=== PATIENT | female | born 1935 | race Caucasian/White ===

== ENCOUNTER 2017-04-11 05:47 | Inpatient (IN) | payer MEDICARE, SELFPAY ==
[2017-04-11] VITALS (19 sets, daily range): BP systolic 86–144; BP diastolic 48–79; PULSE 83–130; RESP 16–24; TEMP 36.9–38.3; O2SAT 92–99; BMI 33.3; BMI 33.4
--- NOTE | 2017-04-11 05:55 | RAD_ITS ---
STUDY: X-RAY CHEST REASON FOR EXAM: Female, 82 years old. Cough TECHNIQUE: 1 view COMPARISON: October 28, 2015 FINDINGS: The heart is normal in size. Median sternotomy wires are in place. There is no pneumonia and there are no pleural effusions. Normal visualized thoracic spine. Normal visualized ribs, clavicles, and shoulders. There is no demonstrated abnormality of the visualized soft tissue structures of the upper abdomen. RAD/Chest 1 View (Portable) IMPRESSION: No acute findings in the lungs Electronically Signed: Ashu Horton, at 6:18 EST Tel , Service support ,
--- NOTE | 2017-04-11 06:02 | EKG12_ITS ---
Test Reason : Blood Pressure : / mmHG Vent. Rate : 096 BPM Atrial Rate : 080 BPM P-R Int : 272 ms QRS Dur : 090 ms QT Int : 372 ms P-R-T Axes : 000 -37 044 degrees QTc Int : 469 ms Atrial flutter with variable conduction Ventricular couplets Left axis deviation Nonspecific ST and T wave abnormality Abnormal ECG Confirmed by AMANDA THOMAS ([id number]), health editor CARLITO HUANG ([id number] on 04/16/2017 10:12:00 AM Referred By: EDIE Confirmed By:AMANDA THOMAS
--- NOTE | 2017-04-11 06:12 | ED.DCSUM_ITS ---
- ER Visit Summary Date of Service: 04/11/17 Chief Complaint: Cough, fever History of Present Illness: The patient is a 82 F presented with cough, fever since Saturday. She has had a productive cough and shortness of breath with exertion. She has had a fever at home. Family has been giving her Tylenol with some improvement of her fever. She did receive a flu shot this year. She denies chest pain or abdominal pain. Denies nausea, vomiting, diarrhea. Physical Examination: Vitals are stable. Temperature 101. Alert no acute distress. HEENT exam is unremarkable. Neck is supple. Lungs are expiratory wheezing bilaterally. Heart is regular rate and rhythm. Abdomen is soft nontender nondistended. Extremities are unremarkable. Skin is warm and dry. No focal neurologic deficit. Remainder of exam is unremarkable. Emergency Department Course and Treatment: Patient is given Tylenol p.o. she is given albuterol and Atrovent aerosols. Chest x-ray shows no acute process. EKG is sinus rate of 96. CBC normal except for platelets 141. Chemistries normal except glucose 133. Urinalysis shows positive nitrites, 0-5 white blood cells, 10-25 red blood cells. Urine culture was sent. Troponin is negative. Lactic acid is 2.7. Influenza A positive. She was given Tamiflu. She had systolic blood pressures in the 80s. This is responsive to IV fluids with a repeat blood pressure 137/60. Attempted to ambulate the patient with a pulse ox and she was unable to ambulate secondary to generalized weakness. Discussed with the hospitalist for admission. Disposition: Admission Impression: Influenza, severe sepsis This note was generated with [employer] dictation software. It may contain incorrect words, spelling, and punctuation that were not noted in review of the chart prior to signing ED Disposition - Plan for ED Patient: Chief Complaint: Cough Referrals: Nabor Arthur MD [Primary Care Provider] -
[2017-04-11] MEDS: Acetaminophen 500 MG Tablet 1000 MG PO (06:17)
[2017-04-11 06:29] LABS: Absolute Lymphocyte Count 0.83 X10^3/ul (0.83-4.51); Absolute Neutrophil Count 6.8 X10^3/uL (2.0-7.7); Basophil# 0.01 X10^3/uL; Basophil% 0.1 % (0-1); Eosinophil# 0.01 X10^3/uL; Eosinophils% 0.1 % (0-5); Hematocrit 39.1 % (37-47); Hemoglobin 12.4 g/dl (12.0-15.0); Lymphocyte # 0.83 X10^3/ul (4.0); Lymphocyte % 9.7 % (19-41); Mean Corp Hgb Conc 31.7 g/gl (32-36); Mean Corpuscular Hgb 28.5 pg (27.0-32.0); Mean Corpuscular Volume 89.9 fL (81-99); Mean Platelet Vol. 11.4 fl (6.2-12.0); Monocyte% 10.6 % (0-10); Neutrophil # 6.76 X10^3/uL (2.7-7.7); Neutrophil % 79.4 % (47-70); Platelet Count 141 K/mm3 (150-450); RBC Distribution Width CV 14.9 % (11.6-14.6); Red Blood Count 4.35 M/mm3 (4.2-5.4); White Blood Count 8.5 K/mm3 (4.4-11.0)
[2017-04-11 06:30] LABS: POSITIVE COUNT NO; POSITIVE DIFFERENTIAL NO; POSITIVE MORPHOLOGY NO
[2017-04-11] MEDS: Ipratropium/Albuterol Sulfate 3 ML AMPUL.NEB INHALATION (06:34)
[2017-04-11 06:41] LABS: Mucous, Urine 0 SEEN /hpf (<or=2+)
[2017-04-11 06:43] LABS: Color, Urine Yellow (Yellow); Glucose, Dipstick Normal (Normal); Ketone-Dipstick Negative (Negative); Leukocyte Esterase-Dipstick 25 /ul (Negative); Nitrite-Dipstick Positive (Negative); Occult Blood-Urine 250 /ul (Negative); Protein-Dipstick 30 mg/dl (Negative); Specific Gravity, Urine 1.025 (1.002-1.030); Urine Bilirubin Dipstick Negative (Negative); Urine Clarity Sl. Cloudy (Clear); Urine Urobilinogen Normal (Normal)
[2017-04-11 06:49] LABS: Anion Gap 6 (5-15); BUN 14 mg/dL (7-18); BUN/Creat Ratio 17.5 RATIO (10-20); Calcium,Total 8.9 mg/dL (8.5-10.1); Chloride 102 mmol/L (98-107); EST Glomerular Filtration Rate 73 mL/min (>60); Est Glom Filt Rate - Afr Amer 88 mL/min (>60); Estimated Creatinine Clearance 38.27 ml/min; Glucose 133 mg/dL (70-110); Potassium 3.7 mmol/L (3.5-5.1); Sodium Level 135 mmol/L (136-145)
[2017-04-11] MEDS: Albuterol 2.5 MG/3 ML VIAL.NEB. INHALATION ×3 (06:56→21:03)
[2017-04-11 07:06] LABS: Amorphous Sediment 1+ URATE; Bacteria 2+ /hpf (None Seen); Red Blood Cells-Urine 10-25 SEEN /hpf (0-5); Squamous Epithelial Cells - UA 0-5 SEEN /hpf (5-10); White Blood Cells 0-5 SEEN /hpf (0-5)
--- NOTE | 2017-04-11 07:27 | CPS ---
RN AND AWARE OF INCREASED HR, THIRD AEROSOL HELD AT THIS TIME.
[2017-04-11] MEDS: 0.9% Normal Saline 1,000 ML 999 ML IV (08:08)
[2017-04-11 08:45] LABS: Lactic Acid 2.7 mmol/L (0.4-2.0)
[2017-04-11] MEDS: Oseltamivir Phosphate 75 MG Capsule PO (08:51)
[2017-04-11] MEDS: 0.9% Normal Saline 1,000 ML 150 ML IV (09:45)
[2017-04-11 09:58] LABS: International Normalized Ratio 1.8; Prothrombin Time (Protime)PT. 20.1 SECONDS (11.7-14.9)
[2017-04-11] MEDS: Enoxaparin 40 MG/0.4 ML Syringe SC (11:19)
[2017-04-11] MEDS: Famotidine 20 MG Tablet PO (11:20)
[2017-04-11 12:16] LABS: Reflex Lactate? Y
[2017-04-11 12:27] LABS: Lactic Acid 3.9 mmol/L (0.4-2.0)
--- NOTE | 2017-04-11 12:31 | NURSING ---
This RN called at this time from lab and notified of lactic of 3.9. This RN texted both Juan Ramon Pulliam and Dr. Bales. Reply= no new orders. vitals obtained at this time
[2017-04-11] MEDS: Metoprolol Tartrate 25 MG Tablet 12.5 MG PO ×2 (14:11→21:03)
[2017-04-11] MEDS: Acetaminophen 325 MG Tablet 650 MG PO (14:13)
[2017-04-11 15:51] LABS: Reflex Lactate? Y
--- NOTE | 2017-04-11 16:17 | CHAPLAIN ---
Type of Pastoral Visit _x__ Initial Visit ___ Follow-up Visit ___ On-call Visit ___ General Patient Visit ___ Spiritual Assessment ___ Family Conference ___ Bereavement ___ Rapid Response ___ Code Blue ___ Other (describe below) Pastoral Care Referral From _x__ Patient ___ Family ___ Nurse ___ Physician ___ Steam Shovel Runner ___ Grave Digger ___ Other (describe below) Sacrament/Intervention ___ Active listening ___ Anointing ___ Restorationism ___ Bereavement ___ Communion ___ Vianca exploration ___ ___ Life review ___ Prayer ___ Reconciliation ___ Sacrament of Sick _x__ Supportive presence ___ Wedding ___ Other (describe below) Pastoral Comments
--- NOTE | 2017-04-11 16:28 | HP.PCM_ITS ---
Addendum entered and electronically signed by MELANIE Pulliam 04/11/17 16:33: Code Visit Problem #8 CAD - s/p CABG - continue aspirin / statin Original Note: <Jose Noguera - Last Filed: 04/11/17 16:31> Problem List (1) Severe sepsis Status: Acute (2) Influenza A Status: Acute (3) Dementia Status: Chronic (4) Atrial fibrillation Status: Chronic (5) HTN (hypertension) Status: Chronic History of Present Illness Date of Admission: 04/11/17 Chief Complaint: malaise The patient is a 82 year old F comes to the emergency room complaining of generalized malaise over the past few days. The patient has dementia and family is not present she is somewhat confused and unclear about her history. She reportedly has had a cough has been short of breath with exertion. She has had a fever at home, however she does not remember having a fever and does not remember her family giving her Tylenol. She denies any nausea or vomiting, no diarrhea. She has no abdominal pain. She denies dysuria. She has some chronic urinary incontinence but has had no change in this recently. Currently she does not feel like she has a fever or and is not having chills. She is resting comfortably in bed without oxygen and is not short of breath. She has some all over ache. She feels very weak lately. She does report a cough and occasionally brings up some yellow mucus. She states 1 of her daughters is also sick with similar symptoms. She did have a flu shot this year. [] Past Medical History Past Medical History (Chronic Problems): Chronic Problems Dementia (Chronic) Atrial fibrillation (Chronic) HTN (hypertension) (Chronic) Allergies Penicillins Allergy (Verified 04/11/17 05:47) Rash Home Medications: Ambulatory Orders Medication Instructions Recorded Aspirin [Aspirin, Baby] 81 mg PO DAILY@0800 04/11/17 Atorvastatin Calcium [Lipitor] 20 mg PO QHS 04/11/17 Cholecalciferol (Vitamin D3) 1,000 unit PO DAILY 04/11/17 [Vitamin D3] Ferrous Sulfate 325 mg PO BIDCM 04/11/17 Furosemide [Lasix] 20 mg PO DAILY 04/11/17 Metoprolol Tartrate [Lopressor 12.5 mg PO TID 04/11/17 (Beta Shantal)] [place]-3 Fatty Acids/Fish Oil [Fish 1 each PO BID 04/11/17 Oil 1,000 mg Capsule] Potassium Chloride 10 meq PO DAILY 04/11/17 Ranitidine [Zantac] 150 mg PO DAILY 04/11/17 Warfarin [Coumadin ([facility])] 2.5 mg PO QHS 04/11/17 Surgical History: - - CABG Psychiatric History: No pertinent psych hx SEGMENTAL WALL INSTALLER History: No pertinent SEGMENTAL WALL INSTALLER history Lives: With Family Smoking Status: Never smoker Tobacco Use: Non-smoker Alcohol: None Drugs: None - *Family History Maternal History Items: Unknown - pt has dementia Paternal History Items: Unknown - pt has dementia Review of Systems Constitutional: Reports: Malaise, Weakness, Fatigue. Denies: Chills, Fever, Weight Change HEENT: Denies: Head Aches, Sinus Congestion, Sinus Drainage Cardiovascular: Denies: Chest Pain, Chest Pressure, Chest Tightness, Edema, Heaviness, Light Headedness, Palpitations Respiratory: Reports: Cough, Shortness of Breath, Shortness of breath upon exertion, Sputum production. Denies: Hemoptysis, Pleuritic Pain, Shortness of breath at rest Gastrointestinal: Denies: Abdominal Pain, Diarrhea, Nausea, Vomiting Genitourinary: Reports: Incontinence - chronic. Denies: Dysuria Musculoskeletal: Denies: Joint Pain, Joint Tenderness Skin: Denies: Rash, Wounds Neurological: Denies: Numbness, Tingling, Focal weakness Psychiatric: Denies: Anxiety, Depression, Homicidal Ideations, Suicidal Ideations Hematologic/ Lymphatic: Denies: Easy Bruising, Easy Bleeding VTE Information - Inpt Only VTE Present on Admission: No VTE Mechan Device Prophylaxis: SCD's VTE Pharm Prophylaxis ordered?: Yes Patient Problems: Active and Suspected Problems Severe sepsis (Acute) Influenza A (Acute) - Physical Exam General: Alert, Oriented x3, Cooperative HEENT: Atraumatic, PERRLA, EOMI, Normocephalic Neck: Supple, No JVD, Negative Carotid Bruits Lungs: Normal air movement, Wheezes - expiratory BL. Cardiovascular: Regular rate, No murmurs, Irregular Rate - Skipped beats Abdomen: Bowel Sounds Present, Soft, Non Tender Extremities: No edema, Capillary Refill Less than 3 Seconds Skin: No rashes, No breakdown Musculoskeletal: No Tenderness to Palpation of Joints or Extremities Neurological: Cranial nerves II-XII grossly intact Psych/Mental Status: Normal Affect, Appropriate Vital Signs Temp Pulse Resp BP Pulse Ox 99.4 F H 98 18 144/55 H 97 04/11/17 16:02 04/11/17 14:11 04/11/17 14:08 04/11/17 14:11 04/11/17 14:08 Oxygen Flow Rate 2 Oxygen Delivery Method Room Air Weight: 75 kg Body Mass Index (BMI) 33.3 Intake and Output for Last 24 Hours 04/09/17 04/10/17 04/11/17 23:59 23:59 23:59 Intake Total 1128 / 1128 Output Total 300 / 300 Balance 828 / 828 Laboratory Tests Past 24 Hrs 04/11/17 11:40 Lactic Acid 3.9 H Assessment/Plan Active and Suspected Problems Severe sepsis (Acute) Influenza A (Acute) 1. Acute severe sepsis 2/2 Influenza A - criteria met with + lactate, hypotension on presentation, + tachy, + fever T max 101.0. Start tamiflu. PRN aerosols. Incentive spirometer. No Abx indicated at this time. Pt appears comfortable, non toxic, and without dyspnea off O2. Troponin negative. Negative WBC. 2. AF - warfarin - trend currently subtherapeutic. Tachy 2/2 infection. EKG with sinus tach. PVCs on exam. 3. Asymptomatic baceriuria - defer abx. 4. HTN - actually low on presentation - responded to fluids. Hold antihypertensives until stable. 5. Dementia 6. Debility - PTOT 7. Mild thrombocytopenia - trend. Avoid heparin products. DVT ppx: warfarin DC planning: PTOT This patient was seen by Jose Noguera PA-C under the supervision of Doctor Amairani. <Lucho Bales - Last Filed: 04/11/17 16:48> Problem List (1) Severe sepsis Status: Acute (2) Influenza A Status: Acute (3) Dementia Status: Chronic (4) Atrial fibrillation Status: Chronic (5) HTN (hypertension) Status: Chronic History of Present Illness The patient is a 82 year old F presents with a weeks long history of malaise and being sick. Patient presented to the emergency room and was in his with an elevated lactic acid and temp of 38.3, tachypnea of 21. It was positive for influenza A and was started on Tamiflu. There is concern about urinary tract infection per discussion with the ER but the urinalysis only shows 0-5 white cells. 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 Denies: Chills, Fever, Weight Change HEENT: Denies: Head Aches, Sinus Congestion, Sinus Drainage Cardiovascular: Denies: Chest Pain, Chest Pressure, Chest Tightness, Edema, Heaviness, Light Headedness, Palpitations Respiratory: Reports: Cough, Shortness of Breath, Shortness of breath upon exertion, Sputum production. Denies: Hemoptysis, Pleuritic Pain, Shortness of breath at rest Gastrointestinal: Denies: Abdominal Pain, Diarrhea, Nausea, Vomiting Genitourinary: Reports: Incontinence. Denies: Dysuria Musculoskeletal: Denies: Joint Pain, Joint Tenderness Skin: Denies: Rash, Wounds Neurological: Denies: Focal weakness, Numbness, Tingling Psychiatric: Denies: Anxiety, Depression, Homicidal Ideations, Suicidal Ideations Hematologic/ Lymphatic: Denies: Easy Bruising, Easy Bleeding VTE Information - Inpt Only VTE Present on Admission: No VTE Pharm Prophylaxis ordered?: Yes - Physical Exam General: Alert, Cooperative HEENT: Atraumatic, Normocephalic Neck: No Nodes, Thyroid Normal Size and Texture Lungs: Clear to auscultation, Normal air movement, No rhonchi, No wheeze Cardiovascular: Regular rate, Regular Rhythm, Normal S1, Normal S2, No murmurs Abdomen: Bowel Sounds Present, Soft, Non Tender, Non-Distended Psych/Mental Status: Normal Affect, Appropriate Vital Signs Temp Pulse Resp BP Pulse Ox 37.4 C H 98 18 144/55 H 97 04/11/17 16:02 04/11/17 14:11 04/11/17 14:08 04/11/17 14:11 04/11/17 14:08 Oxygen Flow Rate 2 Oxygen Delivery Method Room Air Weight: 75 kg Body Mass Index (BMI) 33.3 Intake and Output for Last 24 Hours 04/09/17 04/10/17 04/11/17 23:59 23:59 23:59 Intake Total 1128 / 1128 Output Total 300 / 300 Balance 828 / 828 Laboratory Tests Past 24 Hrs 04/11/17 04/11/17 11:40 16:15 Lactic Acid 3.9 H Pending Assessment/Plan Patient seen and examined independently. Agree with the above note by the physician assistant store director. 1. Severe sepsis: Secondary problem #2. Repeat lactic acid. IV fluids. 2. Influenza A: Patient states that she did get an influenza vaccine this year as she does every year. Patient be on Tamiflu 75 mg twice daily. 3. DVT prophylaxis: Patient is anticoagulated. Code Visit Inpatient E&M: 79184 Init Hosp L2
[2017-04-11 16:49] LABS: Lactic Acid 1.7 mmol/L (0.4-2.0)
[2017-04-11] MEDS: Ferrous Sulfate 325 MG Tablet PO (17:06)
[2017-04-11] MEDS: Atorvastatin Calcium 20 MG Tablet PO (21:04)
[2017-04-11] MEDS: Oseltamivir Phosphate 30 MG Capsule PO (21:04)
[2017-04-12] VITALS (11 sets, daily range): BP systolic 127–149; BP diastolic 62–89; PULSE 76–93; RESP 16–21; TEMP 36.6–37.9; O2SAT 95–98
[2017-04-12] MEDS: Albuterol 2.5 MG/3 ML VIAL.NEB. INHALATION ×2 (00:52→12:56)
[2017-04-12] MEDS: Acetaminophen 325 MG Tablet 650 MG PO (03:01)
[2017-04-12] MEDS: Metoprolol Tartrate 25 MG Tablet 12.5 MG PO ×2 (06:59→16:06)
[2017-04-12 07:00] LABS: International Normalized Ratio 2.1; Prothrombin Time (Protime)PT. 22.9 SECONDS (11.7-14.9)
[2017-04-12 07:03] LABS: Absolute Lymphocyte Count 1.34 X10^3/ul (0.83-4.51); Absolute Neutrophil Count 5.1 X10^3/uL (2.0-7.7); Basophil# 0.02 X10^3/uL; Basophil% 0.3 % (0-1); Eosinophil# 0.01 X10^3/uL; Eosinophils% 0.1 % (0-5); Hematocrit 37.6 % (37-47); Hemoglobin 11.8 g/dl (12.0-15.0); Lymphocyte # 1.34 X10^3/ul (4.0); Mean Corp Hgb Conc 31.4 g/gl (32-36); Mean Corpuscular Hgb 28.6 pg (27.0-32.0); Mean Corpuscular Volume 91.3 fL (81-99); Mean Platelet Vol. 11.2 fl (6.2-12.0); Monocyte# 0.92 X10^3/uL; Monocyte% 12.3 % (0-10); Neutrophil # 5.13 X10^3/uL (2.7-7.7); Neutrophil % 68.9 % (47-70); Platelet Count 148 K/mm3 (150-450); RBC Distribution Width CV 15.3 % (11.6-14.6); RBC Distribution Width SD 50.3 fl (35.1-43.9); Red Blood Count 4.12 M/mm3 (4.2-5.4); White Blood Count 7.5 K/mm3 (4.4-11.0)
[2017-04-12 07:11] LABS: POSITIVE COUNT NO; POSITIVE DIFFERENTIAL NO; POSITIVE MORPHOLOGY NO
[2017-04-12 07:16] LABS: Anion Gap 8 (5-15); BUN 11 mg/dL (7-18); BUN/Creat Ratio 15.2 RATIO (10-20); Chloride 109 mmol/L (98-107); Creatinine, Serum 0.73 mg/dL (0.55-1.02); EST Glomerular Filtration Rate 81 mL/min (>60); Est Glom Filt Rate - Afr Amer 99 mL/min (>60); Estimated Creatinine Clearance 50.47 ml/min; Glucose 106 mg/dL (70-110); Potassium 3.5 mmol/L (3.5-5.1); Sodium Level 141 mmol/L (136-145)
[2017-04-12] MEDS: Famotidine 20 MG Tablet PO (10:29)
[2017-04-12] MEDS: Oseltamivir Phosphate 30 MG Capsule PO (10:29)
[2017-04-12] MEDS: Aspirin 81 MG TAB.CHEW PO (10:30)
[2017-04-12] MEDS: Ferrous Sulfate 325 MG Tablet PO ×2 (10:30→17:39)
--- NOTE | 2017-04-12 10:51 | CASEMGMT ---
PADMINI ACOSTA Face to Face with patient for initial transition planning/care coordination assessment. PADMINI ACOSTA introduced self and role at [facility]. Patient lying in bed, alert and oriented. Patient willing to participate in assessment and is able to answer all questions appropriately. Care providers, pharmacy, and demographics verified. See link attached. Patient wishes to discharge home, denies need for home health at this time. Patient states she lives with daughter and patient gave permission to call daughter to discuss discharge needs. Pt states she has no further needs or concerns at this time. PADMINI ACOSTA called and spoke with daughter Anuradha Brink who states that her mother lives with her and is with her 08/10. Discussed with daughter if she thought her mother needed HHC at this time and she denied need for HHC. CM to follow for discharge planning needs that may arise. Disposition Plan: Patient to discharge home with family support and follow-up plans in place.
--- NOTE | 2017-04-12 11:36 | PCM.DC ---
- Discharge Diagnoses Current Active Problems: Current Active and Chronic Problems Severe sepsis (Acute) Influenza A (Acute) Dementia (Chronic) Atrial fibrillation (Chronic) HTN (hypertension) (Chronic) You will use the following diet at home:: Cardiac Your food should be the consistency of: Regular Your liquids should be the consistency of: Regular/Thin Discharge Activity: Return to Normal Activity Allergies/Adverse Reactions: Allergies Penicillins Allergy (Verified 04/11/17 05:47) Rash Medications to take at Discharge Aspirin [Aspirin, Baby] 81 mg PO DAILY@0800 04/11/17 Atorvastatin Calcium [Lipitor] 20 mg PO QHS 04/11/17 Cholecalciferol (Vitamin D3) [Vitamin D3] 1,000 unit PO DAILY 04/11/17 Ferrous Sulfate 325 mg PO BIDCM 04/11/17 Furosemide [Lasix] 20 mg PO DAILY 04/11/17 Metoprolol Tartrate [Lopressor (beta kuldip)] 12.5 mg PO TID 04/11/17 [place]-3 Fatty Acids/Fish Oil [Fish Oil 1,000 mg Capsule] 1 each PO BID 04/11/17 Potassium Chloride 10 meq PO DAILY 04/11/17 Ranitidine [Zantac] 150 mg PO DAILY 04/11/17 Warfarin [Coumadin] 2.5 mg PO QHS 04/11/17 Oseltamivir Phosphate [Tamiflu] 30 mg PO BID #8 cap 04/12/17 The following prescriptions were given: Oseltamivir Phosphate [Tamiflu] 30 mg PO BID #8 cap Primary Care Physician: Nabor Arthur MD [Primary Care Provider] - Please follow up with your Primary Care Physician in: 1 week Proposed Discharge Date: 04/12/17
--- NOTE | 2017-04-12 14:37 | DS.PCM_ITS ---
<Jose Noguera - Last Filed: 04/12/17 14:31> Discharge Date and Diagnosis - Problem List Patient Problems: Active and Suspected Problems Severe sepsis (Acute) Influenza A (Acute) Date of Admission: 04/11/17 Date of Discharge: 04/12/17 - Primary Discharge Diagnosis Active and Suspected Problems Severe sepsis (Acute) 2/2 Influenza A (Acute) PAF Dementia HTN Debility Mild thrombocytopenia Asymptomatic bacteriuria - Secondary Discharge Diagnosis Chronic Problems Dementia (Chronic) Atrial fibrillation (Chronic) HTN (hypertension) (Chronic) Hospital Course and Treatment Imaging Results: RAD/Chest 1 View (Portable) IMPRESSION: No acute findings in the lungs Operations: None Procedures: None Summary of Care Provided: Physical exam on day of discharge: General: Resting comfortably NAD Psych: A/Ox3 normal affect HEENT: PEARRLA AT NC Neck: Supple NT CV: RRR no m/t/r/g/h Resp: BL wheezing Abd: [id number] Soft NT no guarding or rigidity Ext: DP2+= no edema Skin: W/D normal turgor Lymph/Heme: No active bleeding or adenopathy Neuro: CN2-12 intact Hospital course: The patient is a 82 year old F who presented to the emergency room from home with fever, generalized malaise, reported shortness of breath, and body aches. She was given aerosols and tested for the flu. She is positive for influenza A. She had a negative chest x-ray. She had no O2 requirements. She is admitted to general medical floor and started on Tamiflu. She had a low blood pressure and was given IV fluids, antihypertensives were held. Blood pressure responded to IV hydration. She met sepsis criteria with lactic acidosis, source of infection, tachycardia, hypotension, and fever. She was very weak and debilitated. She was seen by physical therapy and Occupational Therapy however her family desire to take her home and care for her themselves and did not want home care. They are with her 24 hours a day. She improved dramatically overnight with stable vital signs, no oxygen requirement, and improvement in her symptoms. She was discharged home to complete 5 days of Tamiflu. She will follow-up with her PCP in 1 week. This patient was seen by Jose Noguera PA-C under the supervision of Doctor Amairani. [] Discharge Diet: Low fat/ Low Cholesterol, 4000 mg Sodium Diet Discharge Activity: Return to Normal Activity Home Medications: Medications to take at Discharge Aspirin [Aspirin, Baby] 81 mg PO DAILY@0800 04/11/17 Atorvastatin Calcium [Lipitor] 20 mg PO QHS 04/11/17 Cholecalciferol (Vitamin D3) [Vitamin D3] 1,000 unit PO DAILY 04/11/17 Ferrous Sulfate 325 mg PO BIDCM 04/11/17 Furosemide [Lasix] 20 mg PO DAILY 04/11/17 Metoprolol Tartrate [Lopressor (beta kuldip)] 12.5 mg PO TID 04/11/17 [place]-3 Fatty Acids/Fish Oil [Fish Oil 1,000 mg Capsule] 1 each PO BID 04/11/17 Potassium Chloride 10 meq PO DAILY 04/11/17 Ranitidine [Zantac] 150 mg PO DAILY 04/11/17 Warfarin [Coumadin] 2.5 mg PO QHS 04/11/17 Oseltamivir Phosphate [Tamiflu] 30 mg PO BID #8 cap 04/12/17 Following Prescrptions Were Given to Patient: Oseltamivir Phosphate [Tamiflu] 30 mg PO BID #8 cap Primary Care Physician: Nabor Arthur MD [Primary Care Provider] - Please follow up with your Primary Care Physician in: 1 week Disposition: Home Minutes spent on discharge:: 35 Patient Condition:: Stable Meaningful Use Info Meaningful Use Diagnoses (Choose all that apply): None applicable <Lucho Bales - Last Filed: 04/12/17 16:16> Discharge Date and Diagnosis - Primary Discharge Diagnosis Active and Suspected Problems Severe sepsis (Acute) Influenza A (Acute) - Secondary Discharge Diagnosis Chronic Problems Dementia (Chronic) Atrial fibrillation (Chronic) HTN (hypertension) (Chronic) Hospital Course and Treatment Operations: None Procedures: None Summary of Care Provided: Patient seen and examined independent. Agree with the above note by the physician assistant city attorney. The patient is a 82 year old F presents with a week's history of malaise, shortness of breath and myalgias. Patient was tested positive for influenza A and patient was started on Tamiflu. Patient was in severe sepsis so did receive IV fluids and her Lasix was held. Patient's status improved during the course of her hospitalization. The patient will be discharged. Seen by physical therapy recommended skilled needs. Family states that they live with her 24 7 and a sister with all her needs so no skilled skilled needs were required. [] Discharge Diet: Low fat/ Low Cholesterol, 4000 mg Sodium Diet Discharge Activity: Return to Normal Activity Disposition: Home Minutes spent on discharge:: 35 Patient Condition:: Stable Meaningful Use Info Meaningful Use Diagnoses (Choose all that apply): None applicable Code Visit OBSV E&M: 87023 Observation care discharge
== END 2017-04-12 18:24 | disposition home or self-care (01) | DRG 872 ==
LOC: ED 09:08 → MS3 09:22
PROVIDERS: Emergency Provider Emergency Medicine; Family Provider Family Medicine; PCP Family Medicine
DX: A41.89 Other specified sepsis (principal); J11.1 Influenza due to unidentified influenza virus with other respiratory manifestations; R65.20 Severe sepsis without septic shock; I95.9 Hypotension, unspecified; E87.2 Acidosis; D69.6 Thrombocytopenia, unspecified; R82.71 Bacteriuria; I48.0 Paroxysmal atrial fibrillation; I25.10 Atherosclerotic heart disease of native coronary artery without angina pectoris; I10 Essential (primary) hypertension; F03.90 Unspecified dementia, unspecified severity, without behavioral disturbance, psychotic disturbance, mood disturbance, and anxiety; R32 Unspecified urinary incontinence; Z79.01 Long term (current) use of anticoagulants; Z79.82 Long term (current) use of aspirin; Z79.899 Other long term (current) drug therapy; Z95.1 Presence of aortocoronary bypass graft
CPT/HCPCS: 36415; 71045; 80048; 81001; 83605; 84484; 85025; 85610; 87086; 87088; 87804; 93005; 94640; 94762; 97165; 97535; 97802; 99285; J7030; J7040; A4216

== ENCOUNTER 2017-04-14 13:50 | Inpatient (IN) | payer MEDICARE, SELFPAY ==
[2017-04-14] VITALS (11 sets, daily range): BP systolic 114–156; BP diastolic 66–101; PULSE 86–116; RESP 20–24; TEMP 37.7–38.5; O2SAT 74–97; BMI 34.7; BMI 32.7
--- NOTE | 2017-04-14 14:14 | RAD_ITS ---
STUDY: X-RAY CHEST REASON FOR EXAM: Female, 82 years old. Shortness of breath. TECHNIQUE: Single AP portable view of the chest. COMPARISON: April 11, 2017. FINDINGS: Cardiac monitoring leads are present. Patient has had a sternotomy. The lungs are expanded. There appear to be multifocal airspace opacities in the right lung, new since the previous study. There is no demonstrated pleural abnormality. There is mild cardiac enlargement. Normal mediastinum and pancho. Normal visualized pulmonary arteries. There is atherosclerotic tortuosity of the aortic arch and descending thoracic aorta. There is demineralization of the osseous structures. Normal visualized ribs, clavicles, and shoulders. There is no demonstrated abnormality of the visualized soft tissue structures of the upper abdomen. RAD/Chest 1 View (Portable) IMPRESSION: Right-sided airspace consolidations likely representing pneumonia. Electronically Signed: Mimi Arvizu MD at 14:52 EST , Service support ,
--- NOTE | 2017-04-14 14:14 | EKG12_ITS ---
Test Reason : SOB Blood Pressure : / mmHG Vent. Rate : 102 BPM Atrial Rate : 113 BPM P-R Int : 000 ms QRS Dur : 084 ms QT Int : 354 ms P-R-T Axes : 000 -39 021 degrees QTc Int : 461 ms Atrial tachycardia/fibrillation with Premature ventricular complexes Left axis deviation Abnormal ECG Confirmed by PONCHO HAIDER, JEROME ([id number]), avid editor CARLITO HUANG ([id number]) on 04/16/2017 10:43:44 AM Referred By: [email or web address] Confirmed By:JEROME ISAAC MD
[2017-04-14] MEDS: Ipratropium/Albuterol Sulfate 3 ML AMPUL.NEB INHALATION (14:28)
--- NOTE | 2017-04-14 14:49 | ED.DCSUM_ITS ---
- ER Visit Summary Date of Service: 04/14/17 Chief Complaint: [] Influenza positive, persistent harsh cough vomiting weakness History of Present Illness: The patient is a 82 F [] about 1 week the patient's had a harsh cough runny nose etc. she was seen at the hospital, diagnosed with influenza positive, treated discharged a few days ago. For the daughter she has had persistence of the harsh coughing to the point now she is vomiting and she cannot be managed at home is unable to eat or drink complaining of fatigue patient does have history of COPD,, hypertension, and I believe A. arley usually uses oxygen at home as needed Physical Examination: [] Which was 100.3 she has a harsh cough productive of thick yellow mucus, her nose is congested her lungs are diminished with wheezing diffusely the heart tones are tachycardic to about 100 BMs obese but soft upper lower extremities unremarkable neurologically she is awake alert her baseline Test Results: [] Emergency Department Course and Treatment: [] The chest x-ray shows right sided infiltrate that was new compared to previous her labs are white count 13,000 chemistry panel generally unremarkable lactate levels pending, I spoke with the hospitalist given all the above failure of outpatient management therapy they are going to admit her they will arrange for antibiotic therapy once she is upstairs and they understand that the lactate is not back and they will check that patient remains hemodynamically stable Treatment Plan: [] Disposition: [] Admits stable Impression: [] Right-sided pneumonia, history of influenza A, exacerbation of COPD, recent admission This note was generated with [employer] dictation software. It may contain incorrect words, spelling, and punctuation that were not noted in review of the chart prior to signing ED Disposition - Plan for ED Patient: Chief Complaint: Shortness of Breath Referrals: Nabor Arthur MD [Primary Care Provider] -
[2017-04-14 14:56] LABS: Absolute Lymphocyte Count 0.81 X10^3/ul (0.83-4.51); Absolute Neutrophil Count 11.7 X10^3/uL (2.0-7.7); Basophil# 0.01 X10^3/uL; Basophil% 0.1 % (0-1); Hematocrit 35.2 % (37-47); Hemoglobin 11.1 g/dl (12.0-15.0); Lymphocyte # 0.81 X10^3/ul (4.0); Mean Corp Hgb Conc 31.5 g/gl (32-36); Mean Corpuscular Hgb 27.9 pg (27.0-32.0); Mean Corpuscular Volume 88.4 fL (81-99); Mean Platelet Vol. 10.7 fl (6.2-12.0); Monocyte# 0.92 X10^3/uL; Monocyte% 6.8 % (0-10); Neutrophil # 11.73 X10^3/uL (2.7-7.7); Neutrophil % 86.9 % (47-70); Platelet Count 180 K/mm3 (150-450); RBC Distribution Width CV 14.8 % (11.6-14.6); RBC Distribution Width SD 47.9 fl (35.1-43.9); Red Blood Count 3.98 M/mm3 (4.2-5.4); White Blood Count 13.5 K/mm3 (4.4-11.0)
[2017-04-14 14:57] LABS: POSITIVE COUNT NO; POSITIVE DIFFERENTIAL NO; POSITIVE MORPHOLOGY NO
[2017-04-14 15:12] LABS: Anion Gap 7 (5-15); BUN 12 mg/dL (7-18); BUN/Creat Ratio 14.7 RATIO (10-20); Calcium,Total 9.6 mg/dL (8.5-10.1); Chloride 103 mmol/L (98-107); Creatinine, Serum 0.82 mg/dL (0.55-1.02); EST Glomerular Filtration Rate 71 mL/min (>60); Est Glom Filt Rate - Afr Amer 86 mL/min (>60); Estimated Creatinine Clearance 64.01 ml/min; Glucose 168 mg/dL (70-110); Potassium 3.7 mmol/L (3.5-5.1); Sodium Level 138 mmol/L (136-145)
[2017-04-14 15:37] LABS: BNP,B-Type NATRIURETIC PEPTIDE 456.9 pg/mL (0-100)
[2017-04-14] MEDS: 0.9% Normal Saline 1,000 ML 150 ML IV (16:28)
--- NOTE | 2017-04-14 16:47 | HP.PCM_ITS ---
Problem List (1) Metabolic encephalopathy Status: Acute (2) Community acquired pneumonia Status: Acute (3) Influenza A Status: Acute (4) COPD (chronic obstructive pulmonary disease) Status: Chronic (5) Dementia Status: Chronic (6) Atrial fibrillation Status: Chronic (7) HTN (hypertension) Status: Chronic History of Present Illness Date of Admission: 04/14/17 Chief Complaint: SOB, confusion The patient is a 82 year old F who was discharged from the hospital yesterday after being treated for influenza and sepsis. She went home with her daughter and was more SOB and confused after going home. She returned to the hospital and has cough, wheezing, confusion, and fever and hypoxic at 74 percent on room air. She underwent a chest xray and was found to have a right lower infiltrate and now has an elevated white count. She has some underlying confusion and short term memory problems and underlying COPD. She is not on home oxygen or aerosols. She takes coumadin for chronic AF. She is somewhat tachycardic. [] Past Medical History Past Medical History (Chronic Problems): Chronic Problems Dementia (Chronic) Atrial fibrillation (Chronic) HTN (hypertension) (Chronic) COPD (chronic obstructive pulmonary disease) (Chronic) Allergies Penicillins Allergy (Verified 04/14/17 13:56) Rash Home Medications: Ambulatory Orders Medication Instructions Recorded Aspirin [Aspirin, Baby] 81 mg PO DAILY@0800 04/11/17 Atorvastatin Calcium [Lipitor] 20 mg PO QHS 04/11/17 Cholecalciferol (Vitamin D3) 1,000 unit PO DAILY 04/11/17 [Vitamin D3] Ferrous Sulfate 325 mg PO BIDCM 04/11/17 Furosemide [Lasix] 20 mg PO DAILY 04/11/17 Metoprolol Tartrate [Lopressor 12.5 mg PO TID 04/11/17 (beta kuldip)] [place]-3 Fatty Acids/Fish Oil [Fish 1 each PO BID 04/11/17 Oil 1,000 mg Capsule] Potassium Chloride 10 meq PO DAILY 04/11/17 Ranitidine [Zantac] 150 mg PO DAILY 04/11/17 Warfarin [Coumadin] 2.5 mg PO QHS 04/11/17 Oseltamivir Phosphate [Tamiflu] 30 mg PO BID #8 cap 04/12/17 Surgical History: - - CABG Psychiatric History: No pertinent psych hx INDUSTRIAL RELATIONS COMMISSIONER History: No pertinent INDUSTRIAL RELATIONS COMMISSIONER history Lives: With Family Smoking Status: Never smoker Tobacco Use: Non-smoker Alcohol: None Drugs: None - *Family History Maternal History Items: Unknown - pt has dementia Paternal History Items: Unknown - pt has dementia Review of Systems Unable to obtain accurate/complete ROS d/t: pt has metabolic encephalopathy and is confused with underlying dementia VTE Information - Inpt Only VTE Present on Admission: No VTE Mechan Device Prophylaxis: SCD's VTE Pharm Prophylaxis ordered?: Yes Patient Problems: Active and Suspected Problems Metabolic encephalopathy (Acute) Community acquired pneumonia (Acute) - Physical Exam General: Alert, Oriented x3, Cooperative HEENT: Atraumatic, PERRLA, EOMI, Normocephalic Neck: Supple, No JVD, Negative Carotid Bruits Lungs: Rales, Rhonchi, Wheezes Cardiovascular: No murmurs, Irregular Rate Abdomen: Bowel Sounds Present, Soft, Non Tender Extremities: No edema, Capillary Refill Less than 3 Seconds Skin: No rashes, No breakdown Musculoskeletal: No Tenderness to Palpation of Joints or Extremities Neurological: Cranial nerves II-XII grossly intact Psych/Mental Status: Normal Affect, Appropriate, Alert and oriented to time, place, person, mood and affect Vital Signs Temp Pulse Resp BP Pulse Ox 100.3 F H 96 22 H 154/101 H 96 04/14/17 13:53 04/14/17 16:15 04/14/17 16:15 04/14/17 16:15 04/14/17 16:15 Oxygen Flow Rate 2 Oxygen Delivery Method Nasal Cannula Weight: 78 kg Body Mass Index (BMI) 34.7 Laboratory Tests Past 24 Hrs 04/14/17 04/14/17 04/14/17 14:39 14:39 14:39 WBC 13.5 H RBC 3.98 L Hgb 11.1 L Hct 35.2 L MCV 88.4 MCH 27.9 MCHC 31.5 L RDW 14.8 H RDW Differential 47.9 H Plt Count 180 MPV 10.7 Immature Gran % (Auto) 0.200 Neut % (Auto) 86.9 H Lymph % (Auto) 6.0 L [place] % (Auto) 6.8 Eos % (Auto) 0.0 Baso % (Auto) 0.1 Absolute Neuts (auto) 11.7 H Absolute Lymphs (auto) 0.81 L Total Counted Not Reportable Sodium 138 Potassium 3.7 Chloride 103 Carbon Dioxide 28.0 Anion Gap 7 BUN 12 Creatinine 0.82 Estim Creat Clear Calc 64.01 Est GFR (MDRD) Af Amer 86 Est GFR (MDRD) Non-Af 71 BUN/Creatinine Ratio 14.7 Glucose 168 H Lactic Acid Calcium 9.6 Troponin I < 0.02 B-Natriuretic Peptide 456.9 H 04/14/17 16:25 WBC RBC Hgb Hct MCV MCH MCHC RDW RDW Differential Plt Count MPV Immature Gran % (Auto) Neut % (Auto) Lymph % (Auto) [place] % (Auto) Eos % (Auto) Baso % (Auto) Absolute Neuts (auto) Absolute Lymphs (auto) Total Counted Sodium Potassium Chloride Carbon Dioxide Anion Gap BUN Creatinine Estim Creat Clear Calc Est GFR (MDRD) Af Amer Est GFR (MDRD) Non-Af BUN/Creatinine Ratio Glucose Lactic Acid Pending Calcium Troponin I B-Natriuretic Peptide Assessment/Plan Active and Suspected Problems Metabolic encephalopathy (Acute) Community acquired pneumonia (Acute) 1. Acute community acquired pna following sepsis 2/2 influenza A - pt was in the hospital less than 48 hours. Start levaquin. CXR shows RLL infiltrate, she now has leukocytosis fever and tachy and increased O2 demand - no O2 was needed at discharge. She was hypoxic at 74 but improved with 2lpm. Will continue tamiflu. Check urine antigens and sputum culture. Add mucinex and PEP therapy. Check lactate to determine if septic. 2. Acute metabolic encephalopathy - more confused than baseline 2/2 acute infectious process - baseline she has poor short term memory 3. Acute hypoxia 2/2 #1 - improved with 2 lpm, not on O2 at home 4. COPD - aerosols, incentive spirometer. Fairly wheezy on exam today. 5. Chronic AF - rate up to 116 at triage, improved now. Continue warfarin and follow INR, metoprolol. 6. CAD - aspirin, statin, lopressor 7. Suspect underlying dementia 8. HTN - stable 9. Mild thrombocytopenia - has resolved DVT ppx: warfarin, get INR DC planning: pt will likely return home under the care of her daughters. Pt seen by Jose Noguera PA-C under the supervision of Dr. Dorado.
[2017-04-14 17:17] LABS: Lactic Acid 1.1 mmol/L (0.4-2.0)
--- NOTE | 2017-04-14 17:40 | ED.RN ---
pt cant go to the floor until 7 due to staffing
[2017-04-14] MEDS: Ferrous Sulfate 325 MG Tablet PO (19:54)
[2017-04-14] MEDS: 0.9% Normal Saline 1,000 ML 75 ML IV (19:54)
[2017-04-14] MEDS: Acetaminophen 325 MG Tablet 650 MG PO (20:16)
[2017-04-14] MEDS: 0.9% Normal Saline 1,000 ML 50 ML IV (20:16)
[2017-04-14] MEDS: Oseltamivir Phosphate 30 MG Capsule PO (22:05)
[2017-04-14] MEDS: Atorvastatin Calcium 20 MG Tablet PO (22:06)
[2017-04-14] MEDS: Metoprolol Tartrate 25 MG Tablet 12.5 MG PO (22:07)
[2017-04-15] VITALS (11 sets, daily range): BP systolic 110–130; BP diastolic 63–77; PULSE 58–112; RESP 18–20; TEMP 36.4–37.1; O2SAT 94–100
[2017-04-15] MEDS: Ipratropium/Albuterol Sulfate 3 ML AMPUL.NEB INHALATION ×3 (00:30→19:21)
[2017-04-15] MEDS: Metoprolol Tartrate 25 MG Tablet 12.5 MG PO ×3 (05:41→21:21)
--- NOTE | 2017-04-15 05:55 | RAD_ITS ---
STUDY: X-RAY CHEST REASON FOR EXAM: Female, 82 years old. Dyspnea TECHNIQUE: Single AP portable view of the chest. COMPARISON: April 15, 2017. FINDINGS: Cardiac monitoring leads are present. Patient has had a sternotomy. The lungs are expanded. There appear to be multifocal airspace opacities in the right lung, new since the previous study. There is no demonstrated pleural abnormality. There is mild cardiac enlargement. Normal mediastinum and pancho. Normal visualized pulmonary arteries. There is atherosclerotic tortuosity of the aortic arch and descending thoracic aorta. There is demineralization of the osseous structures. Normal visualized ribs, clavicles, and shoulders. There is no demonstrated abnormality of the visualized soft tissue structures of the upper abdomen. RAD/Chest 1 View (Portable) IMPRESSION: Stable Right-sided airspace consolidations likely representing pneumonia. Electronically Signed: Mecca Chris MD at 8:09 EST Tel , Service support ,
[2017-04-15 06:15] LABS: International Normalized Ratio 3.4; Prothrombin Time (Protime)PT. 33.1 SECONDS (11.7-14.9)
[2017-04-15 06:29] LABS: Absolute Lymphocyte Count 1.05 X10^3/ul (0.83-4.51); Absolute Neutrophil Count 9.3 X10^3/uL (2.0-7.7); Basophil# 0.01 X10^3/uL; Basophil% 0.1 % (0-1); Eosinophil# 0.01 X10^3/uL; Eosinophils% 0.1 % (0-5); Hematocrit 31.9 % (37-47); Hemoglobin 10.1 g/dl (12.0-15.0); Lymphocyte # 1.05 X10^3/ul (4.0); Lymphocyte % 9.3 % (19-41); Mean Corp Hgb Conc 31.7 g/gl (32-36); Mean Corpuscular Hgb 27.9 pg (27.0-32.0); Mean Corpuscular Volume 88.1 fL (81-99); Mean Platelet Vol. 10.2 fl (6.2-12.0); Monocyte# 0.89 X10^3/uL; Monocyte% 7.9 % (0-10); Neutrophil # 9.29 X10^3/uL (2.7-7.7); Neutrophil % 82.2 % (47-70); Platelet Count 166 K/mm3 (150-450); RBC Distribution Width SD 48.6 fl (35.1-43.9); Red Blood Count 3.62 M/mm3 (4.2-5.4); White Blood Count 11.3 K/mm3 (4.4-11.0)
[2017-04-15 06:30] LABS: POSITIVE COUNT NO; POSITIVE DIFFERENTIAL NO; POSITIVE MORPHOLOGY NO
--- NOTE | 2017-04-15 06:37 | PCM.PROGNOTE ---
Patient Problems: Active and Suspected Problems Metabolic encephalopathy (Acute) Community acquired pneumonia (Acute) Subjective: Patient is an 82-year-old female with a past medical history of dementia, atrial fibrillation, hyperlipidemia, chronic anticoagulation with Coumadin and hypertension who was admitted to the hospital on 04/11 with a diagnosis of influenza A and discharged on 04/12. She returned to the emergency room on 04/14/17 with increased confusion and debility. Vital signs at admission were temp 100.3?F, pulse rate 116, respiratory rate 24, blood pressure 129/74 and she was 74% saturated on room air. Pulse ox on 2 L was 95%. Chest x-ray in the emergency room showed consolidation in the right upper lobe and right lower lobe and white blood cell count was elevated at 13.5 with 87% neutrophils. Lactic acid was 1.1. She was admitted to the hospital with a diagnosis of severe sepsis due to post viral pneumonia and metabolic encephalopathy. She was started on Levaquin 750 mg every 24 hours and Tamiflu 30 mg twice daily was continued to finish 10 doses. She is currently afebrile, T-max was 101.3?F in the past 24 hours. Blood pressure and heart rate are within normal limits and she is 94% saturated on a 2 L nasal cannula. Chest x-ray today continues to show infiltrates/consolidation throughout the right lung. White blood cell count is 11.3 with 82% neutrophils. Hemoglobin is 10.1 and platelets are within normal limits. I&O not accurate due to incontinence She continues to complain of cough and shortness of breath. Sputum has 4+ white blood cells. Also has 4+ gram-positive cocci. Legionella and streptococcal antigens in the urine are negative. - Physical Exam General: Alert, Oriented x3, Cooperative, - - Sitting in a chair and states that she got short of breath with activity required to get into the chair and with physical therapy today. HEENT: Atraumatic, PERRLA, EOMI Oral: Dry Mucosa Neck: Supple, No JVD Lungs: Rales - Throughout the right lung posteriorly and anteriorly. Cardiovascular: Regular rate, Regular Rhythm, Normal S1, Normal S2, No murmurs, No rub noted, No Gallop Abdomen: Bowel Sounds Present, Soft, Non Tender, Non-Distended Extremities: No cyanosis, No edema Musculoskeletal: Arthritic Changes Neurological: Cranial nerves II-XII grossly intact, Neuro grossly intact Psych/Mental Status: Normal Affect, Appropriate Vital Signs Temp Pulse Resp BP Pulse Ox 97.6 F L 86 20 H 130/73 H 94 04/15/17 02:39 04/15/17 05:41 04/15/17 02:39 04/15/17 05:41 04/15/17 02:39 Oxygen Flow Rate 2 Oxygen Delivery Method Nasal Cannula Weight: 162 lb 0.636 oz Body Mass Index (BMI) 32.7 Intake and Output for Last 24 Hours 04/13/17 04/14/17 04/15/17 23:59 23:59 23:59 Intake Total 948 / 948 Balance 948 / 948 Microbiology Past 72 Hours 04/14/17 20:03 Gram Stain - Preliminary Sputum, Expectorated/Coughed Laboratory Tests Past 24 Hrs 04/15/17 04/15/17 05:20 05:20 WBC 11.3 H RBC 3.62 L Hgb 10.1 L Hct 31.9 L MCV 88.1 MCH 27.9 MCHC 31.7 L RDW 15.0 H RDW Differential 48.6 H Plt Count 166 MPV 10.2 Immature Gran % (Auto) 0.400 Neut % (Auto) 82.2 H Lymph % (Auto) 9.3 L [place] % (Auto) 7.9 Eos % (Auto) 0.1 Baso % (Auto) 0.1 Absolute Neuts (auto) 9.3 H Absolute Lymphs (auto) 1.05 Total Counted Not Reportable PT Pending INR Pending Assessment/Plan Active and Suspected Problems Metabolic encephalopathy (Acute) Community acquired pneumonia (Acute) Impressions 1. Influenza A with bacterial superinfection - likely hospital acquired 2. severe sepsis due to HAP - suspect Staph 3. Chronic atrial fibrillation on warfarin 4. hypoxemia 5. Dementia/hyperlipidemia 6. Normochromic normocytic anemia of unknown etiology 7. Hypophosphatemia Continue Tamiflu and Levaquin. MRSA nasal swab is negative so we will might start vancomycin for suspected hospital-acquired pneumonia Await the results of the sputum culture Continue [id number] aerosol treatments IS and Acapella Hold the coumadin today due to the interaction with Levaquin and the increasing INR Check a hemoccult stool Supplement phosphorus Recheck lab in the a.m. Continue famotidine for GI prophylaxis May require SNF at discharge prior to returning home Code Visit Inpatient E&M: 94736 Subs Hosp L3
[2017-04-15] MEDS: Budesonide Respules 0.5 MG/2 ML AMPUL.NEB. INHALATION ×2 (06:41→19:21)
[2017-04-15 07:19] LABS: ALB/GLOB Ratio 0.5 RATIO (0.9-2.4); AST(SGOT) 17 U/L (15-37); Alanine Aminotransfer ALT/SGPT 17 U/L (13-56); Albumin, Serum 2.3 g/dL (3.2-5.0); Alkaline Phosphatase 60 U/L (45-117); Anion Gap 8 (5-15); BUN 12 mg/dL (7-18); BUN/Creat Ratio 18.9 RATIO (10-20); Chloride 104 mmol/L (98-107); Creatinine, Serum 0.64 mg/dL (0.55-1.02); EST Glomerular Filtration Rate 95 mL/min (>60); Est Glom Filt Rate - Afr Amer 115 mL/min (>60); Estimated Creatinine Clearance 49.46 ml/min; Globulin 4.2 g/dL (2.2-4.2); Glucose 99 mg/dL (70-110); Magnesium 1.9 mg/dL (1.6-2.6); Potassium 3.6 mmol/L (3.5-5.1); Protein, Total 6.5 g/dL (6.4-8.2); Sodium Level 139 mmol/L (136-145)
[2017-04-15] MEDS: Oseltamivir Phosphate 30 MG Capsule PO ×2 (08:34→21:21)
[2017-04-15] MEDS: Famotidine 20 MG Tablet PO (08:34)
[2017-04-15] MEDS: Ferrous Sulfate 325 MG Tablet PO ×2 (08:34→16:04)
[2017-04-15] MEDS: Aspirin 81 MG TAB.CHEW PO (08:34)
[2017-04-15 10:36] LABS: M R Staph aureus DNA By PCR Negative (Negative); Probe Check PASS; Specimen Processing Control PASS
[2017-04-15] MEDS: Magnesium Oxide 400 MG Tablet PO (11:05)
[2017-04-15] MEDS: Polyethylene Glycol 3350 17 GM PACKET PO (11:05)
--- NOTE | 2017-04-15 11:05 | CASEMGMT ---
Readmission Note. Last hospitalization 04/11/17-04/12/17 with sepsis, influenza. Dc'd home. Present admission 04/14/17 with pneumonia per CXR. -see past admission RN CM Assessment Link for details. -RN CM intro role of CM to patient's daughter and son-in=law. they are requesting pt return home on discharge. Had lengthy conversation re: benefits of Home Health nurse to see pt on dc. they are agreeable. Call to [facility] in [place] , they are able to staff. Clinical information, demographic faxed to [phone]. Plan start of care or Saturday. -Name/number of agency placed in DC appointments for pt. Kathia PETER RN AC
[2017-04-15] MEDS: Atorvastatin Calcium 20 MG Tablet PO (21:21)
[2017-04-16] VITALS (15 sets, daily range): BP systolic 116–146; BP diastolic 68–91; PULSE 50–114; RESP 17–22; TEMP 36.9–37; O2SAT 93–99
[2017-04-16] MEDS: Ipratropium/Albuterol Sulfate 3 ML AMPUL.NEB INHALATION ×4 (01:01→19:06)
[2017-04-16] MEDS: 0.9% NaCl Peripheral Flush Adult/Peds IV ×2 (02:09→22:05)
[2017-04-16 06:16] LABS: Anion Gap 7 (5-15); BUN 17 mg/dL (7-18); BUN/Creat Ratio 28.4 RATIO (10-20); Calcium,Total 9.3 mg/dL (8.5-10.1); Chloride 105 mmol/L (98-107); EST Glomerular Filtration Rate 102 mL/min (>60); Est Glom Filt Rate - Afr Amer 123 mL/min (>60); Estimated Creatinine Clearance 49.46 ml/min; Glucose 121 mg/dL (70-110); Magnesium 2.1 mg/dL (1.6-2.6); Phosphorus 2.8 mg/dL (2.5-4.9); Potassium 4.1 mmol/L (3.5-5.1); Sodium Level 139 mmol/L (136-145)
[2017-04-16] MEDS: Metoprolol Tartrate 25 MG Tablet 12.5 MG PO ×3 (06:34→22:05)
[2017-04-16] MEDS: Budesonide Respules 0.5 MG/2 ML AMPUL.NEB. INHALATION ×2 (07:18→19:06)
[2017-04-16] MEDS: Polyethylene Glycol 3350 17 GM PACKET PO (08:32)
[2017-04-16] MEDS: Famotidine 20 MG Tablet PO (08:33)
[2017-04-16] MEDS: Aspirin 81 MG TAB.CHEW PO (08:33)
[2017-04-16] MEDS: Furosemide 20 MG Tablet PO (08:33)
[2017-04-16] MEDS: Oseltamivir Phosphate 30 MG Capsule PO ×2 (08:33→22:05)
[2017-04-16] MEDS: Magnesium Oxide 400 MG Tablet PO (08:33)
[2017-04-16] MEDS: Ferrous Sulfate 325 MG Tablet PO ×2 (08:33→18:10)
--- NOTE | 2017-04-16 16:22 | PCM.PROGNOTE ---
Patient Problems: Active and Suspected Problems Metabolic encephalopathy (Acute) Community acquired pneumonia (Acute) Subjective: Day #3 Levaquin No fever for the past 24 hours. Vital signs are stable. She is currently 96-97% saturated on room air at rest. Were personally reviewed. Respiratory culture is pending. She is still having chills and gets very SOB with even minimal exertion. Sh4e ambulated 40 ft today and could not have gone further due to weakness and dyspnea Still having productive cough - Physical Exam General: Alert, Cooperative, - - looks very fatigued today and she is chilled HEENT: - - [place] Oral: Moist Mucosa, No Gingival or Mucosal Lesions/ Ulcerations Neck: Supple, Trachea Midline Lungs: Rales - she is CTA on the Left but on the R continues to have rales throughout. No wheezing. Not tachypneic at rest. Cardiovascular: Regular rate, Regular Rhythm, Normal S1, Normal S2, No Gallop Abdomen: Bowel Sounds Present, Soft, Non Tender, Non-Distended Extremities: No edema Skin: No rashes Neurological: Cranial nerves II-XII grossly intact, Neuro grossly intact Psych/Mental Status: Normal Affect, Appropriate Vital Signs Temp Pulse Resp BP Pulse Ox 98.4 F 88 18 144/86 H 95 04/16/17 08:30 04/16/17 15:56 04/16/17 14:04 04/16/17 08:30 04/16/17 14:04 Oxygen Flow Rate 2 Oxygen Delivery Method Room Air Weight: 162 lb 0.636 oz Body Mass Index (BMI) 32.7 Intake and Output for Last 24 Hours 04/14/17 04/15/17 04/16/17 23:59 23:59 23:59 Intake Total 2587 / 2587 1381 / 1381 Output Total 127 / 127 Balance 2587 / 2587 1254 / 1254 Microbiology Past 72 Hours 04/15/17 14:30 Stool Occult Blood (PILAR) - Final Stool 04/14/17 20:03 Gram Stain - Final Sputum, Expectorated/Coughed 04/15/17 08:10 Streptococcus pneumoniae Antigen (M - Final Urine Catheter - Jay 04/15/17 08:10 Legionella Antigen - Final Urine, Clean Catch Laboratory Tests Past 24 Hrs 04/16/17 05:32 Sodium 139 Potassium 4.1 Chloride 105 Carbon Dioxide 27.0 Anion Gap 7 BUN 17 Creatinine 0.60 Estim Creat Clear Calc 49.46 Est GFR (MDRD) Af Amer 123 Est GFR (MDRD) Non-Af 102 BUN/Creatinine Ratio 28.4 H Glucose 121 H Calcium 9.3 Phosphorus 2.8 Magnesium 2.1 Assessment/Plan Active and Suspected Problems Metabolic encephalopathy (Acute) Community acquired pneumonia (Acute) Impressions 1. Influenza A with bacterial superinfection - likely hospital acquired....Temps have resolved so will continue the Levaquin. MRSA nasal swab was negative. 2. severe sepsis due to HAP - suspect Staph 3. Chronic atrial fibrillation on warfarin 4. hypoxemia 5. Dementia/hyperlipidemia 6. Normochromic normocytic anemia of unknown etiology 7. Hypophosphatemia-resolved with supplementation Continue Tamiflu and Levaquin. check a PT/INR in the AM ambulatory pulse ox on RA in the AM discussed SNF at [place] with her family and they are open to SNF at [place] if that is what is best for her Recheck a CXR in the AM await the results of the sputum culture
--- NOTE | 2017-04-16 16:35 | PN_ITS ---
Patient Problems: Active and Suspected Problems Metabolic encephalopathy (Acute) Community acquired pneumonia (Acute) Subjective: Day #3 Levaquin No fever for the past 24 hours. Vital signs are stable. She is currently 96-97% saturated on room air at rest. Were personally reviewed. Respiratory culture is pending. She is still having chills and gets very SOB with even minimal exertion. Sh4e ambulated 40 ft today and could not have gone further due to weakness and dyspnea Still having productive cough - Physical Exam General: Alert, Cooperative, - - looks very fatigued today and she is chilled HEENT: - - [place] Oral: Moist Mucosa, No Gingival or Mucosal Lesions/ Ulcerations Neck: Supple, Trachea Midline Lungs: Rales - she is CTA on the Left but on the R continues to have rales throughout. No wheezing. Not tachypneic at rest. Cardiovascular: Regular rate, Regular Rhythm, Normal S1, Normal S2, No Gallop Abdomen: Bowel Sounds Present, Soft, Non Tender, Non-Distended Extremities: No edema Skin: No rashes Neurological: Cranial nerves II-XII grossly intact, Neuro grossly intact Psych/Mental Status: Normal Affect, Appropriate Vital Signs Temp Pulse Resp BP Pulse Ox 98.4 F 88 18 144/86 H 95 04/16/17 08:30 04/16/17 15:56 04/16/17 14:04 04/16/17 08:30 04/16/17 14:04 Oxygen Flow Rate 2 Oxygen Delivery Method Room Air Weight: 162 lb 0.636 oz Body Mass Index (BMI) 32.7 Intake and Output for Last 24 Hours 04/14/17 04/15/17 04/16/17 23:59 23:59 23:59 Intake Total 2587 / 2587 1381 / 1381 Output Total 127 / 127 Balance 2587 / 2587 1254 / 1254 Microbiology Past 72 Hours 04/15/17 14:30 Stool Occult Blood (PILAR) - Final Stool 04/14/17 20:03 Gram Stain - Final Sputum, Expectorated/Coughed 04/15/17 08:10 Streptococcus pneumoniae Antigen (M - Final Urine Catheter - Jay 04/15/17 08:10 Legionella Antigen - Final Urine, Clean Catch Laboratory Tests Past 24 Hrs 04/16/17 05:32 Sodium 139 Potassium 4.1 Chloride 105 Carbon Dioxide 27.0 Anion Gap 7 BUN 17 Creatinine 0.60 Estim Creat Clear Calc 49.46 Est GFR (MDRD) Af Amer 123 Est GFR (MDRD) Non-Af 102 BUN/Creatinine Ratio 28.4 H Glucose 121 H Calcium 9.3 Phosphorus 2.8 Magnesium 2.1 Assessment/Plan Active and Suspected Problems Metabolic encephalopathy (Acute) Community acquired pneumonia (Acute) Impressions 1. Influenza A with bacterial superinfection - likely hospital acquired....Temps have resolved so will continue the Levaquin. MRSA nasal swab was negative. 2. severe sepsis due to HAP - suspect Staph 3. Chronic atrial fibrillation on warfarin 4. hypoxemia 5. Dementia/hyperlipidemia 6. Normochromic normocytic anemia of unknown etiology 7. Hypophosphatemia-resolved with supplementation Continue Tamiflu and Levaquin. check a PT/INR in the AM ambulatory pulse ox on RA in the AM discussed SNF at [place] with her family and they are open to SNF at [place] if that is what is best for her Recheck a CXR in the AM await the results of the sputum culture
--- NOTE | 2017-04-16 17:03 | NURSING ---
patient ambulated in hallway with this RN. O2 sats remained 93-96% on room air. heart elevated with activity to 120s. respirations 26-28 beats/minute. resting back in bed. denies needs. reported results to MD per order.
--- NOTE | 2017-04-16 18:25 | CHAPLAIN ---
Type of Pastoral Visit _x__ Initial Visit ___ Follow-up Visit ___ On-call Visit ___ General Patient Visit ___ Spiritual Assessment ___ Family Conference ___ Bereavement ___ Rapid Response ___ Code Blue ___ Other (describe below) Pastoral Care Referral From _x__ Patient ___ Family ___ Nurse ___ Physician ___ Area Operations Director ___ Paint Mixer Hand ___ Other (describe below) Sacrament/Intervention ___ Active listening ___ Anointing ___ Confucianist ___ Bereavement ___ Communion ___ Vianca exploration ___ ___ Life review ___ Prayer ___ Reconciliation ___ Sacrament of Sick _x__ Supportive presence ___ Wedding ___ Other (describe below) Pastoral Comments
[2017-04-16] MEDS: Atorvastatin Calcium 20 MG Tablet PO (22:05)
[2017-04-17] VITALS (12 sets, daily range): BP systolic 93–161; BP diastolic 59–91; PULSE 63–115; RESP 16–20; TEMP 36.4–37.3; O2SAT 92–96
[2017-04-17] MEDS: Ipratropium/Albuterol Sulfate 3 ML AMPUL.NEB INHALATION ×4 (00:10→20:32)
--- NOTE | 2017-04-17 05:55 | RAD_ITS ---
STUDY: X-RAY CHEST REASON FOR EXAM: Female, 82 years old. History of right sided pneumonia. TECHNIQUE: PA and lateral views of the chest. COMPARISON: Comparison is made with prior examination dated April 15, 2017. FINDINGS: Right upper lobe infiltration. Minimal improvement. Increased markings are also seen in the right infrahilar region. There is no demonstrated pleural abnormality. Sternal cerclage wires are present from a prior sternotomy. Prior mitral valve and aortic valve replacement. Normal mediastinum and pancho. Normal visualized pulmonary arteries. There is atherosclerotic tortuosity of the aortic arch and descending thoracic aorta. There is demineralization of the osseous structures. Normal visualized ribs, clavicles, and shoulders. There is no demonstrated abnormality of the visualized soft tissue structures of the upper abdomen. RAD/Chest PA and Lateral IMPRESSION: Slight improvement in the right upper lobe infiltrate. Mild residual increased markings in the right infrahilar region. Electronically Signed: Jesu Mckee MD at 9:57 EST Tel [phone], Service support ,
[2017-04-17] MEDS: Metoprolol Tartrate 25 MG Tablet 12.5 MG PO ×3 (05:59→21:28)
[2017-04-17 06:49] LABS: International Normalized Ratio 2.9; Prothrombin Time (Protime)PT. 29.4 SECONDS (11.7-14.9)
[2017-04-17] MEDS: Budesonide Respules 0.5 MG/2 ML AMPUL.NEB. INHALATION (07:33)
--- NOTE | 2017-04-17 08:22 | PCM.PROGNOTE ---
Patient Problems: Active and Suspected Problems Metabolic encephalopathy (Acute) Community acquired pneumonia (Acute) Subjective: day #4 Afebrile since the morning of 04/15/2017. Vital signs are stable. She was ambulated on room air and the pulse ox at rest was 96% with a 93% pulse ox with ambulation however the patient became very tachypneic and tachycardic while walking. She is tachycardic with minimal exertion. INR is pending. Chest x-ray today continues to show infiltrates in the right upper lobe and right lower lobe however there is less consolidation. The left side is clear. Preliminary on the respiratory culture appears to be normal respiratory jensen. She has completed 10 doses of Tamiflu. Looking very fatigued today. Still c/o severe SOB with exertion and she feels week. No CP and no N/V/D. Still coughing but less productive - Physical Exam General: Alert, Oriented x3, Cooperative, - - looks tired and worn out HEENT: PERRLA, EOMI Oral: Moist Mucosa Neck: Supple, Trachea Midline Lungs: - - CTA on the left. Rales in the right lung are diminishing and she has no wheezing and no conversational dyspnea Cardiovascular: Regular rate, Regular Rhythm, No Gallop Abdomen: Bowel Sounds Present, Soft, Non Tender, Non-Distended Extremities: No edema Skin: No rashes, No breakdown Psych/Mental Status: Flat Affect Vital Signs Temp Pulse Resp BP Pulse Ox 97.5 F L 101 H 20 H 134/79 H 92 04/17/17 07:50 04/17/17 07:50 04/17/17 07:50 04/17/17 07:50 04/17/17 07:50 Oxygen Flow Rate 2 Oxygen Delivery Method Room Air Weight: 162 lb 0.636 oz Body Mass Index (BMI) 32.7 Intake and Output for Last 24 Hours 04/15/17 04/16/17 04/17/17 23:59 23:59 23:59 Intake Total 2587 / 2587 1861 / 1861 702 / 702 Output Total 127 / 127 Balance 2587 / 2587 1734 / 1734 702 / 702 Microbiology Past 72 Hours 04/14/17 20:03 Gram Stain - Final Sputum, Expectorated/Coughed Respiratory Culture - Preliminary Appears to be normal respiratory jensen. Further studies to follow. 04/15/17 14:30 Stool Occult Blood (PILAR) - Final Stool 04/15/17 08:10 Streptococcus pneumoniae Antigen (M - Final Urine Catheter - Jay 04/15/17 08:10 Legionella Antigen - Final Urine, Clean Catch Laboratory Tests Past 24 Hrs 04/17/17 06:25 PT Pending INR Pending Assessment/Plan Active and Suspected Problems Metabolic encephalopathy (Acute) Community acquired pneumonia (Acute) Impressions 1. Influenza A with bacterial superinfection - likely hospital acquired....Temps have resolved so will continue the Levaquin. MRSA nasal swab was negative. Culture prelim is normal resp jensen 2. severe sepsis due to HAP - suspect Staph....await the final culture results 3. Chronic atrial fibrillation on warfarin 4. hypoxemia 5. Dementia/hyperlipidemia 6. Normochromic normocytic anemia of unknown etiology 7. Hypophosphatemia-resolved with supplementation Tamiflu - has received 10 doses INR is 2.9 today so will restart Coumadin at a lower dose. Continue the Levaquin She is weak and tired and gets markedly tachypneic ands tachycardic with any exertion - she needs to go to a SNF at [place] for strengthening prior to going home. She will be unable to get adequate help at home and She will decompensate without PT/OT for strengthening. She has the flu followed by a bacterial pneumonia and she is debilitated now. Continue budesonide...no need for IV or PO steroids since she has no wheezing. Code Visit Inpatient E&M: 50378 Subs Hosp L2
[2017-04-17] MEDS: Famotidine 20 MG Tablet PO (09:35)
[2017-04-17] MEDS: Aspirin 81 MG TAB.CHEW PO (09:35)
[2017-04-17] MEDS: Oseltamivir Phosphate 30 MG Capsule PO ×2 (09:35→21:28)
[2017-04-17] MEDS: Magnesium Oxide 400 MG Tablet PO (09:36)
[2017-04-17] MEDS: Ferrous Sulfate 325 MG Tablet PO ×2 (09:36→17:29)
[2017-04-17] MEDS: Furosemide 20 MG Tablet PO (09:36)
--- NOTE | 2017-04-17 10:30 | CASEMGMT ---
Addendum entered by Daysi Nunez 04/17/17 11:44: SW spoke w/Maria T in TCU, they will have a bed by Saturday. SW spoke w/physician, pt will likely not be ready before Saturday. MARK let Maria T know, she will start the precert. SW spoke w/pt, pt's daughter and daughter's significant other in the room, explained that TCU does have a bed by Saturday and they will start the precert process w/insurance. Daughter states understanding and is agreeable. Pt also in agreement w/plan. Daughter asked if pt were to need longer than 20 days, what would need to happen. SW explained that the SW in TCU would work w/the pt and family to get pt to a SNF that takes Medicaid, such as [facility], their second choice. Daughter states understanding, SW will continue to follow. MILAD Mohan, JAVASCRIPT APPLICATION DEVELOPER Original Note: As per physician, pt needs to go to SNF, she spoke w/daughter already and daughter is in agreement. SW called pt's daughter, spoke w/her about options. She would like TCU here, or if no beds, [facility]. SW explained if TCU has a bed she would be limited to 20 days there as TCU does not take the Medicaid portion of her insurance--and the Medicare portion covers 20 days. Daughter states she does not think pt will need that long. SW explained will check on bed availability, if TCU has no beds will make referral to [facility]. [place] [facility], spoke w/Rosalind, confirmed they have beds and take pt's insurance. SW will fax referral if TCU cannot take pt. SW will continue to follow. MILAD Mohan, JAVASCRIPT APPLICATION DEVELOPER
--- NOTE | 2017-04-17 13:10 | CASEMGMT ---
[facility] cancelled as pt will be discharged to [facility] TCU. Kathia DYEN RN ACM
[2017-04-17] MEDS: 0.9% NaCl Peripheral Flush Adult/Peds IV (21:28)
[2017-04-17] MEDS: Atorvastatin Calcium 20 MG Tablet PO (21:28)
[2017-04-18] VITALS (13 sets, daily range): BP systolic 113–120; BP diastolic 54–78; PULSE 64–120; RESP 16–18; TEMP 36.6–36.9; O2SAT 95–98
[2017-04-18] MEDS: Metoprolol Tartrate 25 MG Tablet 12.5 MG PO ×3 (05:16→21:51)
[2017-04-18] MEDS: Budesonide Respules 0.5 MG/2 ML AMPUL.NEB. INHALATION ×2 (07:03→19:38)
[2017-04-18] MEDS: Ipratropium/Albuterol Sulfate 3 ML AMPUL.NEB INHALATION ×3 (07:03→19:38)
--- NOTE | 2017-04-18 07:47 | PCM.PROGNOTE ---
Patient Problems: Active and Suspected Problems Hospital-acquired pneumonia (Acute) Influenza A H1N1 infection (Acute) Cough (Acute) Vomiting (Acute) Edema (Acute) Hypokalemia (Acute) Subjective: Remains afebrile. Vital signs are stable. Pulse ox is 96% on room air at rest and she is not tachypneic. She ambulated 40 feet yesterday with standby assist and without assistive device. She was very fatigued and short of breath after ambulation. Physical therapy has recommended SNF/transitional care discharge. denies CP or shortness of breath at rest. No diarrhea No painful sores in the mouth or difficulty or pain with swallowing - Physical Exam General: Alert, Cooperative, No apparent distress, - - Fatigues easily HEENT: Atraumatic Oral: Moist Mucosa, No Gingival or Mucosal Lesions/ Ulcerations Lungs: No rhonchi, No wheeze, Rales - Rare crackles in the right base and right upper lobe Cardiovascular: Regular rate, Normal S1, Normal S2, No Gallop Abdomen: Bowel Sounds Present, Soft, Non Tender, Non-Distended Extremities: No edema Vital Signs Temp Pulse Resp BP Pulse Ox 98.3 F 110 H 18 117/73 96 04/18/17 02:15 04/18/17 05:16 04/18/17 02:15 04/18/17 02:15 04/18/17 02:15 Oxygen Flow Rate 2 Oxygen Delivery Method Room Air Weight: 162 lb 0.636 oz Body Mass Index (BMI) 32.7 Intake and Output for Last 24 Hours 04/16/17 04/17/17 04/18/17 23:59 23:59 23:59 Intake Total 1861 / 1861 1552 / 1552 266 / 266 Output Total 127 / 127 Balance 1734 / 1734 1552 / 1552 266 / 266 Microbiology Past 72 Hours 04/14/17 20:03 Gram Stain - Final Sputum, Expectorated/Coughed Respiratory Culture - Preliminary Appears to be normal respiratory jensen. Further studies to follow. 04/15/17 14:30 Stool Occult Blood (PILAR) - Final Stool 04/15/17 08:10 Streptococcus pneumoniae Antigen (M - Final Urine Catheter - Jay 04/15/17 08:10 Legionella Antigen - Final Urine, Clean Catch Laboratory Tests Past 24 Hrs 04/17/17 06:25 PT 29.4 H INR 2.9 Assessment/Plan Active and Suspected Problems Hospital-acquired pneumonia (Acute) Influenza A H1N1 infection (Acute) Cough (Acute) Vomiting (Acute) Edema (Acute) Hypokalemia (Acute) Impressions 1. Influenza A with bacterial superinfection - likely hospital acquired....Temps have resolved so will continue the Levaquin. MRSA nasal swab was negative. Culture prelim is normal resp jensen 2. severe sepsis due to HAP - suspect Staph....await the final culture results 3. Chronic atrial fibrillation on warfarin 4. hypoxemia 5. Dementia/hyperlipidemia 6. Normochromic normocytic anemia of unknown etiology 7. Hypophosphatemia-resolved with supplementation Continue current treatment Plan on discharge to TCU when the bed is available on 04/18/2017 Code Visit Inpatient E&M: 70952 Subs Hosp L1
[2017-04-18] MEDS: Magnesium Oxide 400 MG Tablet PO (07:57)
[2017-04-18] MEDS: Aspirin 81 MG TAB.CHEW PO (07:57)
[2017-04-18] MEDS: Ferrous Sulfate 325 MG Tablet PO ×2 (07:57→17:03)
[2017-04-18] MEDS: Famotidine 20 MG Tablet PO (10:58)
[2017-04-18] MEDS: Furosemide 20 MG Tablet PO (10:58)
[2017-04-18] MEDS: Polyethylene Glycol 3350 17 GM PACKET PO (10:58)
[2017-04-18] MEDS: Oseltamivir Phosphate 30 MG Capsule PO ×2 (10:58→21:51)
--- NOTE | 2017-04-18 17:07 | PCA ---
set pt up for am care pt sleeping will check later
[2017-04-18] MEDS: 0.9% NaCl Peripheral Flush Adult/Peds IV (21:51)
[2017-04-18] MEDS: Atorvastatin Calcium 20 MG Tablet PO (21:51)
[2017-04-19] VITALS (8 sets, daily range): BP systolic 110–123; BP diastolic 57–75; PULSE 70–110; RESP 16–18; TEMP 36.8–37.1; O2SAT 95–100
[2017-04-19] MEDS: Metoprolol Tartrate 25 MG Tablet 12.5 MG PO ×2 (06:19→14:44)
[2017-04-19] MEDS: Budesonide Respules 0.5 MG/2 ML AMPUL.NEB. INHALATION (07:03)
[2017-04-19] MEDS: Ipratropium/Albuterol Sulfate 3 ML AMPUL.NEB INHALATION (07:03)
[2017-04-19 07:15] LABS: International Normalized Ratio 1.9; Prothrombin Time (Protime)PT. 20.9 SECONDS (11.7-14.9)
[2017-04-19] MEDS: Magnesium Oxide 400 MG Tablet PO (07:35)
[2017-04-19] MEDS: Ferrous Sulfate 325 MG Tablet PO ×2 (07:35→17:24)
[2017-04-19] MEDS: Aspirin 81 MG TAB.CHEW PO (07:35)
[2017-04-19 07:49] LABS: Hematocrit 35.9 % (37-47); Hemoglobin 11.1 g/dl (12.0-15.0); Mean Corp Hgb Conc 30.9 g/gl (32-36); Mean Corpuscular Hgb 27.8 pg (27.0-32.0); Mean Platelet Vol. 10.2 fl (6.2-12.0); Platelet Count 328 K/mm3 (150-450); RBC Distribution Width CV 15.2 % (11.6-14.6); RBC Distribution Width SD 49.6 fl (35.1-43.9); Red Blood Count 3.99 M/mm3 (4.2-5.4); White Blood Count 14.6 K/mm3 (4.4-11.0)
[2017-04-19 07:51] LABS: Differential Indicated MANUAL DIFF; POSITIVE COUNT YES; POSITIVE DIFFERENTIAL YES; POSITIVE MORPHOLOGY YES
--- NOTE | 2017-04-19 07:53 | CASEMGMT ---
Received a call from Maria T in TCU and she received insurance authorization. MARK will notify physician. Maribell CARLSON
[2017-04-19 08:03] LABS: Anion Gap 10 (5-15); BUN 26 mg/dL (7-18); BUN/Creat Ratio 29.1 RATIO (10-20); Calcium,Total 10.1 mg/dL (8.5-10.1); Chloride 103 mmol/L (98-107); Creatinine, Serum 0.89 mg/dL (0.55-1.02); EST Glomerular Filtration Rate 64 mL/min (>60); Est Glom Filt Rate - Afr Amer 78 mL/min (>60); Estimated Creatinine Clearance 55.57 ml/min; Glucose 126 mg/dL (70-110); Magnesium 2.4 mg/dL (1.6-2.6); Potassium 4.4 mmol/L (3.5-5.1); Sodium Level 141 mmol/L (136-145)
[2017-04-19 09:09] LABS: Absolute Nucleated RBC Count 0.04 10^3/uL (0-5); NRBC Flagged by Analyzer 0.2 % (0-5)
[2017-04-19 09:27] LABS: Neutrophil-Band 1 % (0-5); Neutrophil-Segmented 79 % (47-70); Total Cells Counted 100 (MANUAL DIFF)
[2017-04-19 09:28] LABS: Lymphocyte 10 % (19-41); Monocyte 5 % (0-10); Myelocyte 1 (0-0); Platelet Estimate ADEQUATE (ADEQ); Promyelocyte 4 (0-0); Red Cell Morphology NORM C+C NORMAL (NORM C&C)
[2017-04-19 09:29] LABS: Absolute Lymphocyte Count 1.46 X10^3/ul (0.83-4.51); Absolute Neutrophil Count 11.7 X10^3/uL (2.0-7.7)
[2017-04-19] MEDS: Polyethylene Glycol 3350 17 GM PACKET PO (10:21)
[2017-04-19] MEDS: Furosemide 20 MG Tablet PO (10:21)
[2017-04-19] MEDS: Oseltamivir Phosphate 30 MG Capsule PO (10:21)
[2017-04-19] MEDS: Famotidine 20 MG Tablet PO (10:21)
--- NOTE | 2017-04-19 10:52 | PCA ---
PT FINISHING ENSURE WILL SWAB MOUTH LATER
--- NOTE | 2017-04-19 15:20 | CASEMGMT ---
Social Work Preauth for TCU obtained. Physician notified that pt can be d/c at this time. Met with pt and family and made them aware that precert has been given. Green Sheet placed on chart for d/c instructions. DILLON Patel
[2017-04-19 15:26] LABS: Pathologist Review Reviewed
--- NOTE | 2017-04-19 16:20 | PCM.TXEXTCAR ---
- Diet 04/14/17 17:03 Diet: Regular Diet Food consistency:: Regular Liquid Consistency:: Regular/Thin - Routine Orders/Code Status Enema Type: Fleetz Enema Frequency: Daily PRN Suppository Type: Dulcolax 10mg Suppository Frequency: Daily PRN O2 Liters per Minute: 2 O2 Frequency: PRN Keep PO Greater than or Equal to (%): 89 Routine Lab Work: - - PT/INR daily for 3 days and then Weekly - Therapies Weight Bearing: Full weight bearing Physical Therapy: Eval and Treat Occupational Therapy: Eval and Treat - Problem/Diagnosis (1) Community acquired pneumonia Status: Acute Current Visit: Yes (2) Metabolic encephalopathy Status: Acute Current Visit: Yes (3) COPD (chronic obstructive pulmonary disease) Status: Chronic Current Visit: Yes (4) Influenza A Status: Acute Current Visit: No (5) Severe sepsis Status: Acute Current Visit: No (6) Atrial fibrillation Status: Chronic Current Visit: No (7) Dementia Status: Chronic Current Visit: No (8) HTN (hypertension) Status: Chronic Current Visit: No (9) Hypophosphatemia Status: Acute Current Visit: Yes (10) Hypoxemia Status: Acute Current Visit: Yes (11) Hyperlipidemia Status: Chronic Current Visit: Yes (12) Normochromic normocytic anemia Status: Chronic Current Visit: Yes (13) Acute exacerbation of chronic obstructive pulmonary disease (COPD) Status: Acute Current Visit: Yes - Allergies/Procedures Done in Hospital Allergies/Adverse Reactions: Allergies Penicillins Allergy (Verified 04/14/17 13:56) Rash Procedures: None - Type of Care/Length of Stay Estimated LOS: Convalescent Care Less Than 30 days Type of Care Needed: Skilled Rehab Potential: Fair Prognosis: Fair - Additional Orders/Day of Discharge H&P will serve as current which was dated: 04/19/17 Day of Discharge: 04/19/17 - Dietary and Speech Recommendations Dietitian Recommendations/Changes: Recommend continue liberal regular diet. Recommend continue Ensure Enlive on medpass routine. Will provide soft foods and meats in bite size pieces at preference of family - Follow Up Care Primary Care Physician: Nabor Arthur MD [Primary Care Provider] - Please follow up with your Primary Care Physician in: Following discharge from TCU Please Follow Up With: [facility] [phone]
--- NOTE | 2017-04-19 16:28 | PCM.DC.SUM ---
Discharge Date and Diagnosis - Problem List Patient Problems: Active and Suspected Problems Metabolic encephalopathy (Acute) Community acquired pneumonia (Acute) Hypophosphatemia (Acute) Hypoxemia (Acute) Acute exacerbation of chronic obstructive pulmonary disease (COPD) (Acute) Date of Admission: 04/14/17 Date of Discharge: 04/19/17 - Primary Discharge Diagnosis Active and Suspected Problems Metabolic encephalopathy (Acute) due to severe sepsis Community acquired pneumonia (Acute) Hypophosphatemia (Acute) Hypoxemia (Acute) Acute exacerbation of chronic obstructive pulmonary disease (COPD) (Acute) - Secondary Discharge Diagnosis Chronic Problems Dementia (Chronic) Atrial fibrillation (Chronic) HTN (hypertension) (Chronic) COPD (chronic obstructive pulmonary disease) (Chronic) Hyperlipidemia (Chronic) Normochromic normocytic anemia (Chronic) Hospital Course and Treatment Imaging Results: Clinical Impression(s) from Imaging Studies Chest X-Ray 04/14/17 14:14 IMPRESSION: Right-sided airspace consolidations likely representing pneumonia. Electronically Signed: Mimi Arvizu MD at 14:52 EST , Service support , Chest X-Ray 04/15/17 05:55 IMPRESSION: Stable Right-sided airspace consolidations likely representing pneumonia. Electronically Signed: Mecca Chris MD at 8:09 EST Tel , Service support , Chest X-Ray 04/17/17 05:55 IMPRESSION: Slight improvement in the right upper lobe infiltrate. Mild residual increased markings in the right infrahilar region. Electronically Signed: Jesu Mckee MD at 9:57 EST Tel [phone], Service support , none Operations: None Procedures: None Summary of Care Provided: Patient is an 82-year-old female with a past medical history of dementia, atrial fibrillation, hyperlipidemia, chronic anticoagulation with Coumadin and hypertension who was admitted to the hospital on 04/11 with a diagnosis of influenza A and discharged on 04/12 with a RX for Tamiflu. She returned to the emergency room on 1/28/18 with increased confusion and debility. Vital signs at admission were temp 100.3?F, pulse rate 116, respiratory rate 24, blood pressure 129/74 and she was 74% saturated on room air. Pulse ox on 2 L was 95%. Chest x-ray in the emergency room showed consolidation in the right upper lobe and right lower lobe and white blood cell count was elevated at 13.5 with 87% neutrophils. Lactic acid was 1.1. She was admitted to the hospital with a diagnosis of severe sepsis due to post viral pneumonia and metabolic encephalopathy. She was started on Levaquin 750 mg every 24 hours and Tamiflu 30 mg twice daily was continued to finish 10 doses. Aerosolized bronchodilators were started and she was given an Acapella and a incentive spirometer. PT and OT were ordered and she was weak and fatigued easily. she was able to walk 40 ft and maintain pulse ox at 93% but became very tachypneic and tachycardic and could not go any further. A follow up chest x-ray was done on 04/17/2017 and showed some clearing of the infiltrates. She has been afebrile since 04/15/2017. Legionella and streptococcal antigens in the urine were negative. The sputum culture had 4+ white blood cells but showed normal respiratory jensen. She has a normochromic normocytic anemia which is new and a Hemoccult stool was obtained which was negative. Coumadin was held for a few days in the hospital because she was on Levaquin and the INR at admission was 3.0. The INR increased to 3.4 on 04/15. Warfarin was restarted on 04/18 and the INR on 04/19 is 1.9. She has been in atrial fibrillation for the duration of her stay. Heart rate increases very mildly with exertion. Lab on the date of discharge showed a WBC of 14.6, hemoglobin of 11.11 and platelets of 328,000. Electrolytes were within normal limits and the BUN is 26 with a creatinine of 0.89. She was discharged to transitional care unit for strengthening and rehabilitation prior to returning home. Following discharge from TCU she will follow-up with Dr. Arthur. On the date of discharge she was alert and oriented ?3 Lungs-good air exchange, no rales, no wheezes, clear to auscultation Heart-irregular with controlled ventricular response, no gallop Abdomen-soft, nontender, nondistended, normal bowel sounds, no diarrhea No peripheral edema Skin is warm and dry without rashes. This note was generated with [employer] dictation software. It may contain incorrect words, spelling, and punctuation that were not noted in checking the note before signing. Home Medications: Medications to take at Discharge Aspirin [Aspirin, Baby] 81 mg PO DAILY@0800 04/11/17 Atorvastatin Calcium [Lipitor] 20 mg PO QHS 04/11/17 Cholecalciferol (Vitamin D3) [Vitamin D3] 1,000 unit PO DAILY 04/11/17 Ferrous Sulfate 325 mg PO BIDCM 04/11/17 Furosemide [Lasix] 20 mg PO DAILY 04/11/17 [place]-3 Fatty Acids/Fish Oil [Fish Oil 1,000 mg Capsule] 1 each PO BID 04/11/17 Potassium Chloride 10 meq PO DAILY 04/11/17 Renew Eye Drops 1 drop EACH EYE 4X/DAY 04/16/17 Acetaminophen [Tylenol Tablet] 650 mg PO Q6H PRN PRN tablet 04/19/17 Dextran 70/He-Cell [Tears Naturale, Artificial Tears] 2 drop EACH EYE 4X/DAY bottle 04/19/17 Ensure Enlive 120 ml PO 4X/DAY liquid 04/19/17 Famotidine [Pepcid] 20 mg PO DAILY tablet 04/19/17 Ferrous Sulfate 325 mg PO BIDCM tablet 04/19/17 Levofloxacin [Levaquin] 750 mg PO DAILY #2 tablet 04/19/17 Magnesium Oxide [Mag-Ox 400] 400 mg PO DAILYCM tablet 04/19/17 Metoprolol Tartrate [Lopressor (beta kuldip)] 25 mg PO BID #0 04/19/17 Polyethylene Glycol 3350 [Miralax] 17 gm PO DAILY packet 04/19/17 Warfarin [Coumadin] 2 mg PO DAILY@1700 tablet 04/19/17 Following Prescrptions Were Given to Patient: Levofloxacin [Levaquin] 750 mg PO DAILY #2 tablet Primary Care Physician: Nabor Arthur MD [Primary Care Provider] - Please follow up with your Primary Care Physician in: Following discharge from TCU Please Follow Up With: [facility] Care [phone] Disposition: Home Minutes spent on discharge:: 35 Patient Condition:: Good Meaningful Use Info Meaningful Use Diagnoses (Choose all that apply): None applicable Code Visit Inpatient E&M: 02489 Disch Hosp
--- NOTE | 2017-04-19 16:42 | DS.PCM_ITS ---
Discharge Date and Diagnosis - Problem List Patient Problems: Active and Suspected Problems Metabolic encephalopathy (Acute) Community acquired pneumonia (Acute) Hypophosphatemia (Acute) Hypoxemia (Acute) Acute exacerbation of chronic obstructive pulmonary disease (COPD) (Acute) Date of Admission: 04/14/17 Date of Discharge: 04/19/17 - Primary Discharge Diagnosis Active and Suspected Problems Metabolic encephalopathy (Acute) due to severe sepsis Community acquired pneumonia (Acute) Hypophosphatemia (Acute) Hypoxemia (Acute) Acute exacerbation of chronic obstructive pulmonary disease (COPD) (Acute) - Secondary Discharge Diagnosis Chronic Problems Dementia (Chronic) Atrial fibrillation (Chronic) HTN (hypertension) (Chronic) COPD (chronic obstructive pulmonary disease) (Chronic) Hyperlipidemia (Chronic) Normochromic normocytic anemia (Chronic) Hospital Course and Treatment Imaging Results: Clinical Impression(s) from Imaging Studies Chest X-Ray 04/14/17 14:14 IMPRESSION: Right-sided airspace consolidations likely representing pneumonia. Electronically Signed: Mimi Arvizu MD at 14:52 EST , Service support , Chest X-Ray 04/15/17 05:55 IMPRESSION: Stable Right-sided airspace consolidations likely representing pneumonia. Electronically Signed: Mecca Chris MD at 8:09 EST Tel , Service support , Chest X-Ray 04/17/17 05:55 IMPRESSION: Slight improvement in the right upper lobe infiltrate. Mild residual increased markings in the right infrahilar region. Electronically Signed: Jesu Mckee MD at 9:57 EST Tel [phone], Service support , none Operations: None Procedures: None Summary of Care Provided: Patient is an 82-year-old female with a past medical history of dementia, atrial fibrillation, hyperlipidemia, chronic anticoagulation with Coumadin and hypertension who was admitted to the hospital on 04/11 with a diagnosis of influenza A and discharged on 04/12 with a RX for Tamiflu. She returned to the emergency room on 1/28/18 with increased confusion and debility. Vital signs at admission were temp 100.3?F, pulse rate 116, respiratory rate 24, blood pressure 129/74 and she was 74% saturated on room air. Pulse ox on 2 L was 95% . Chest x-ray in the emergency room showed consolidation in the right upper lobe and right lower lobe and white blood cell count was elevated at 13.5 with 87% neutrophils. Lactic acid was 1.1. She was admitted to the hospital with a diagnosis of severe sepsis due to post viral pneumonia and metabolic encephalopathy. She was started on Levaquin 750 mg every 24 hours and Tamiflu 30 mg twice daily was continued to finish 10 doses. Aerosolized bronchodilators were started and she was given an Acapella and a incentive spirometer. PT and OT were ordered and she was weak and fatigued easily. she was able to walk 40 ft and maintain pulse ox at 93% but became very tachypneic and tachycardic and could not go any further. A follow up chest x-ray was done on 04/17/2017 and showed some clearing of the infiltrates. She has been afebrile since 2017. Legionella and streptococcal antigens in the urine were negative. The sputum culture had 4+ white blood cells but showed normal respiratory jensen. She has a normochromic normocytic anemia which is new and a Hemoccult stool was obtained which was negative. Coumadin was held for a few days in the hospital because she was on Levaquin and the INR at admission was 3.0. The INR increased to 3.4 on 04/15. Warfarin was restarted on 04/18 and the INR on 04/19 is 1.9. She has been in atrial fibrillation for the duration of her stay. Heart rate increases very mildly with exertion. Lab on the date of discharge showed a WBC of 14.6, hemoglobin of 11.11 and platelets of 328,000. Electrolytes were within normal limits and the BUN is 26 with a creatinine of 0.89. She was discharged to transitional care unit for strengthening and rehabilitation prior to returning home. Following discharge from TCU she will follow-up with Dr. Arthur. On the date of discharge she was alert and oriented ?3 Lungs-good air exchange, no rales, no wheezes, clear to auscultation Heart-irregular with controlled ventricular response, no gallop Abdomen-soft, nontender, nondistended, normal bowel sounds, no diarrhea No peripheral edema Skin is warm and dry without rashes. This note was generated with [employer] dictation software. It may contain incorrect words, spelling, and punctuation that were not noted in checking the note before signing. Home Medications: Medications to take at Discharge Aspirin [Aspirin, Baby] 81 mg PO DAILY@0800 04/11/17 Atorvastatin Calcium [Lipitor] 20 mg PO QHS 04/11/17 Cholecalciferol (Vitamin D3) [Vitamin D3] 1,000 unit PO DAILY 04/11/17 Ferrous Sulfate 325 mg PO BIDCM 04/11/17 Furosemide [Lasix] 20 mg PO DAILY 04/11/17 [place]-3 Fatty Acids/Fish Oil [Fish Oil 1,000 mg Capsule] 1 each PO BID 04/11/17 Potassium Chloride 10 meq PO DAILY 04/11/17 Renew Eye Drops 1 drop EACH EYE 4X/DAY 04/16/17 Acetaminophen [Tylenol Tablet] 650 mg PO Q6H PRN PRN tablet 04/19/17 Dextran 70/He-Cell [Tears Naturale, Artificial Tears] 2 drop EACH EYE 4X/DAY bottle 04/19/17 Ensure Enlive 120 ml PO 4X/DAY liquid 04/19/17 Famotidine [Pepcid] 20 mg PO DAILY tablet 04/19/17 Ferrous Sulfate 325 mg PO BIDCM tablet 04/19/17 Levofloxacin [Levaquin] 750 mg PO DAILY #2 tablet 04/19/17 Magnesium Oxide [Mag-Ox 400] 400 mg PO DAILYCM tablet 04/19/17 Metoprolol Tartrate [Lopressor (beta kuldip)] 25 mg PO BID #0 04/19/17 Polyethylene Glycol 3350 [Miralax] 17 gm PO DAILY packet 04/19/17 Warfarin [Coumadin] 2 mg PO DAILY@1700 tablet 04/19/17 Following Prescrptions Were Given to Patient: Levofloxacin [Levaquin] 750 mg PO DAILY #2 tablet Primary Care Physician: Nabor Arthur MD [Primary Care Provider] - Please follow up with your Primary Care Physician in: Following discharge from TCU Please Follow Up With: [facility] [phone] Disposition: Home Minutes spent on discharge:: 35 Patient Condition:: Good Meaningful Use Info Meaningful Use Diagnoses (Choose all that apply): None applicable Code Visit Inpatient E&M: 53912 Disch Hosp
== END 2017-04-19 17:49 | disposition skilled nursing facility (03) | DRG 871 ==
LOC: ED 17:24 → MS2 19:04
PROVIDERS: Physician Assistant; Admitting Provider Internal Medicine; Emergency Provider Emergency Medicine; Family Provider Family Medicine; PCP Family Medicine; Visit Provider Internal Medicine
DX: A41.2 Sepsis due to unspecified staphylococcus (principal); G93.41 Metabolic encephalopathy; J10.08 Influenza due to other identified influenza virus with other specified pneumonia; J15.20 Pneumonia due to staphylococcus, unspecified; I48.2 Chronic atrial fibrillation; J44.0 Chronic obstructive pulmonary disease with (acute) lower respiratory infection; Z99.81 Dependence on supplemental oxygen; J44.1 Chronic obstructive pulmonary disease with (acute) exacerbation; Y95 Nosocomial condition; R09.02 Hypoxemia; R65.20 Severe sepsis without septic shock; E83.39 Other disorders of phosphorus metabolism; D64.9 Anemia, unspecified; E87.6 Hypokalemia; I25.10 Atherosclerotic heart disease of native coronary artery without angina pectoris; I10 Essential (primary) hypertension; E78.5 Hyperlipidemia, unspecified; R32 Unspecified urinary incontinence; F03.90 Unspecified dementia, unspecified severity, without behavioral disturbance, psychotic disturbance, mood disturbance, and anxiety; E66.9 Obesity, unspecified; Z68.32 Body mass index [BMI] 32.0-32.9, adult; Z79.01 Long term (current) use of anticoagulants; Z79.82 Long term (current) use of aspirin; Z79.899 Other long term (current) drug therapy; Z95.1 Presence of aortocoronary bypass graft
CPT/HCPCS: 36415; 71045; 71046; 80048; 80053; 82274; 83605; 83735; 83880; 84100; 84484; 85025; 85610; 87070; 87205; 87449; 87641; 93005; 94640; 94667; 94668; 97110; 97116; 97162; 97165; 97530; 97535; 97802; 99285; J7030; J7040; A4216

== ENCOUNTER 2017-04-19 18:00 | Inpatient (IN) | payer MEDICARE, SELFPAY ==
[2017-04-11 10:05] VITALS: BP 128/56
[2017-04-14 19:31] VITALS: BMI 32.7
[2017-04-19 18:11] VITALS: BP 116/66
[2017-04-19 18:38] VITALS: BP 139/92; PULSE 109; RESP 20; TEMP 37.4; O2SAT 93
--- NOTE | 2017-04-19 18:44 | PCM.HP.STD ---
Problem List (1) Alzheimer's disease Status: Chronic (2) Hospital-acquired pneumonia Status: Acute (3) Influenza A H1N1 infection Status: Acute (4) Cough Status: Acute (5) Vomiting Status: Acute (6) Vitamin D deficiency Status: Chronic (7) Iron deficiency anemia Status: Chronic (8) Edema Status: Acute (9) Hypokalemia Status: Acute (10) GERD (gastroesophageal reflux disease) Status: Chronic (11) Influenza A Status: Acute (12) Atrial fibrillation Status: Chronic (13) HTN (hypertension) Status: Chronic (14) Metabolic encephalopathy Status: Acute (15) COPD (chronic obstructive pulmonary disease) Status: Chronic (16) Hyperlipidemia Status: Chronic History of Present Illness Date of Admission: 04/19/17 Chief Complaint: Here for rehabilitation, strengthening, prior to discharge home with family. The patient is a 82 year old Female with below past medical history presented to [facility] Emergency Department 04/14/2017. 04/14/2017 Chest X-ray right sided pneumonia. 04/14/2017 EKG atrial tachycardia/fibrillation with premature ventricular contractions. Left axis deviation. Influenza A positive, harsh cough, vomiting, weakness. Harsh cough, runny nose, influenza A positive, discharge from [facility] recently. Posttussive emesis. Fever 100.3, cough productive thick yellow sputum. WBC 13, BMP okay. 04/14/2017 Admit to Hospital. Levaquin, Mucinex, PEP for right pneumonia. Aerosols for COPD. Tamiflu 30MG BID x total 10 day course for influenza A. 04/15/2017 Add Vancomycin to cover staph pneumonia. 04/16/2017 Continue Tamiflu for influenza A. Continue Levaquin for hospital acquired pneumonia. 04/17/2017 Chest X-ray shows slight improvement right upper lobe infiltrate. 04/19/2017 Admit to TCU for rehabilitation, strengthening, prior to discharge home with family. Past Medical History Past Medical History (Chronic Problems): Chronic Problems Dementia (Chronic) Atrial fibrillation (Chronic) HTN (hypertension) (Chronic) COPD (chronic obstructive pulmonary disease) (Chronic) Hyperlipidemia (Chronic) Normochromic normocytic anemia (Chronic) Alzheimer's disease (Chronic) Vitamin D deficiency (Chronic) Iron deficiency anemia (Chronic) GERD (gastroesophageal reflux disease) (Chronic) Allergies Penicillins Allergy (Verified 04/14/17 13:56) Rash Home Medications: Ambulatory Orders Medication Instructions Recorded Aspirin [Aspirin, Baby] 81 mg PO DAILY@0800 04/11/17 Atorvastatin Calcium [Lipitor] 20 mg PO QHS 04/11/17 Cholecalciferol (Vitamin D3) 1,000 unit PO DAILY 04/11/17 [Vitamin D3] Ferrous Sulfate 325 mg PO BIDCM 04/11/17 Furosemide [Lasix] 20 mg PO DAILY 04/11/17 [place]-3 Fatty Acids/Fish Oil [Fish 1 each PO BID 04/11/17 Oil 1,000 mg Capsule] Potassium Chloride 10 meq PO DAILY 04/11/17 Renew Eye Drops 1 drop EACH EYE 4X/DAY 04/16/17 Acetaminophen [Tylenol Tablet] 650 mg PO Q6H PRN PRN tablet 04/19/17 Dextran 70/He-Cell [Tears 2 drop EACH EYE 4X/DAY bottle 04/19/17 Naturale, Artificial Tears] Ensure Enlive 120 ml PO 4X/DAY liquid 04/19/17 Famotidine [Pepcid] 20 mg PO DAILY tablet 04/19/17 Ferrous Sulfate 325 mg PO BIDCM tablet 04/19/17 Levofloxacin [Levaquin] 750 mg PO DAILY #2 tablet 04/19/17 Magnesium Oxide [Mag-Ox 400] 400 mg PO DAILYCM tablet 04/19/17 Metoprolol Tartrate [Lopressor 25 mg PO BID #0 04/19/17 (beta kuldip)] Polyethylene Glycol 3350 [Miralax] 17 gm PO DAILY packet 04/19/17 Warfarin [Coumadin] 2 mg PO DAILY@1700 tablet 04/19/17 Surgical History: coronary bypass surgery Psychiatric History: No pertinent psych hx 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 Smoking Status: Never smoker Tobacco Use: Non-smoker Alcohol: None Drugs: None - *Family History Maternal History Items: Unknown - pt has dementia Paternal History Items: Unknown - pt has dementia Review of Systems Constitutional: Denies: Chills, Fever, Weight Change HEENT: Denies: Head Aches, Sinus Congestion, Sinus Drainage Cardiovascular: Denies: Chest Pain, Palpitations Respiratory: Denies: Cough, Shortness of breath at rest, Sputum production Gastrointestinal: Denies: Abdominal Pain, Nausea, Vomiting Genitourinary: Denies: Dysuria Musculoskeletal: Denies: Joint Pain, Joint Tenderness Skin: Denies: Rash, Wounds Neurological: Denies: Numbness, Tingling, Focal weakness Psychiatric: Denies: Anxiety, Depression, Homicidal Ideations, Suicidal Ideations Hematologic/ Lymphatic: Denies: Easy Bruising, Easy Bleeding VTE Information - Inpt Only VTE Present on Admission: No VTE Mechan Device Prophylaxis: Knee High NELLI Hose VTE Pharm Prophylaxis ordered?: No Reason prophylaxis not ordered:: Treatment Not Indicated Patient Problems: Active and Suspected Problems Hospital-acquired pneumonia (Acute) Influenza A H1N1 infection (Acute) Cough (Acute) Vomiting (Acute) Edema (Acute) Hypokalemia (Acute) - Physical Exam General: Alert, Oriented x3, Cooperative HEENT: Atraumatic, PERRLA, EOMI, Normocephalic Neck: Supple, No JVD, Negative Carotid Bruits Lungs: Clear to auscultation, Normal air movement Cardiovascular: Regular rate, No murmurs Abdomen: Bowel Sounds Present, Soft, Non Tender Extremities: No edema, Capillary Refill Less than 3 Seconds Skin: No rashes, No breakdown Musculoskeletal: No Tenderness to Palpation of Joints or Extremities Neurological: Cranial nerves II-XII grossly intact Psych/Mental Status: Normal Affect, Appropriate Vital Signs BP 116/66 04/19/17 18:11 Body Mass Index (BMI) 32.7 Assessment/Plan Active and Suspected Problems Hospital-acquired pneumonia (Acute) Influenza A H1N1 infection (Acute) Cough (Acute) Vomiting (Acute) Edema (Acute) Hypokalemia (Acute) 82 year old female with below past medical history hospitalized for hospital acquired pneumonia secondary to influenza A, complicated by encephalopathy from underlying Alzheimer's Disease, admitted to TCU for rehabilitation, strengthening, prior to discharge home with family. Debility - PT/OT. Pain - Tylenol 1000MG Q8H PRN mild pain. Bowel - Miralax 17GM daily. Pneumonia vaccination - Administer Prevnar 13 and/or Pneumovax 23 as necessary. DVT prophylaxis - Not necessary, already on warfarin. Coronary Artery Disease - Metoprolol 25MG BID, Aspirin 81MG daily. Hyperlipidemia - Atorvastatin 20MG QHS, Fish Oil 1000MG BID (No clinical evidence showing fish oil is helpful). Vitamin D deficiency - D3 1000IU daily. Iron deficiency anemia - Ferrous sulfate 325MG BID. Edema - Lasix 20MG daily. Hypokalemia - KCL 10MEQ daily. Dry Eyes - Renew Eyedrops 1GTT OU 4x/day, Artificial Tears 2GTT OU 4x/day. Nutrition - Ensure Enlive 120ML 4x/day. GERD - Famotidine 20MG daily. Right Hospital Acquired Pneumonia - Levaquin 750MG po daily x 2 days. Hypomagnesemia - Mag Oxide 400MG daily. Atrial Fibrillation - Metoprolol 25MG BID, Warfarin 2MG daily, follow INR.
--- NOTE | 2017-04-19 18:55 | HP.PCM_ITS ---
Problem List (1) Alzheimer's disease Status: Chronic (2) Hospital-acquired pneumonia Status: Acute (3) Influenza A H1N1 infection Status: Acute (4) Cough Status: Acute (5) Vomiting Status: Acute (6) Vitamin D deficiency Status: Chronic (7) Iron deficiency anemia Status: Chronic (8) Edema Status: Acute (9) Hypokalemia Status: Acute (10) GERD (gastroesophageal reflux disease) Status: Chronic (11) Influenza A Status: Acute (12) Atrial fibrillation Status: Chronic (13) HTN (hypertension) Status: Chronic (14) Metabolic encephalopathy Status: Acute (15) COPD (chronic obstructive pulmonary disease) Status: Chronic (16) Hyperlipidemia Status: Chronic History of Present Illness Date of Admission: 04/19/17 Chief Complaint: Here for rehabilitation, strengthening, prior to discharge home with family. The patient is a 82 year old Female with below past medical history presented to [facility] Emergency Department 04/14/2017. 04/14/2017 Chest X-ray right sided pneumonia. 04/14/2017 EKG atrial tachycardia/fibrillation with premature ventricular contractions. Left axis deviation. Influenza A positive, harsh cough, vomiting, weakness. Harsh cough, runny nose, influenza A positive, discharge from [facility] recently. Posttussive emesis. Fever 100.3, cough productive thick yellow sputum. WBC 13, BMP okay. 04/14/2017 Admit to Hospital. Levaquin, Mucinex, PEP for right pneumonia. Aerosols for COPD. Tamiflu 30MG BID x total 10 day course for influenza A. 04/15/2017 Add Vancomycin to cover staph pneumonia. 04/16/2017 Continue Tamiflu for influenza A. Continue Levaquin for hospital acquired pneumonia. 04/17/2017 Chest X-ray shows slight improvement right upper lobe infiltrate. 04/19/2017 Admit to TCU for rehabilitation, strengthening, prior to discharge home with family. Past Medical History Past Medical History (Chronic Problems): Chronic Problems Dementia (Chronic) Atrial fibrillation (Chronic) HTN (hypertension) (Chronic) COPD (chronic obstructive pulmonary disease) (Chronic) Hyperlipidemia (Chronic) Normochromic normocytic anemia (Chronic) Alzheimer's disease (Chronic) Vitamin D deficiency (Chronic) Iron deficiency anemia (Chronic) GERD (gastroesophageal reflux disease) (Chronic) Allergies Penicillins Allergy (Verified 04/14/17 13:56) Rash Home Medications: Ambulatory Orders Medication Instructions Recorded Aspirin [Aspirin, Baby] 81 mg PO DAILY@0800 04/11/17 Atorvastatin Calcium [Lipitor] 20 mg PO QHS 04/11/17 Cholecalciferol (Vitamin D3) 1,000 unit PO DAILY 04/11/17 [Vitamin D3] Ferrous Sulfate 325 mg PO BIDCM 04/11/17 Furosemide [Lasix] 20 mg PO DAILY 04/11/17 [place]-3 Fatty Acids/Fish Oil [Fish 1 each PO BID 04/11/17 Oil 1,000 mg Capsule] Potassium Chloride 10 meq PO DAILY 04/11/17 Renew Eye Drops 1 drop EACH EYE 4X/DAY 04/16/17 Acetaminophen [Tylenol Tablet] 650 mg PO Q6H PRN PRN tablet 04/19/17 Dextran 70/He-Cell [Tears 2 drop EACH EYE 4X/DAY bottle 04/19/17 [place], Artificial Tears] Ensure Enlive 120 ml PO 4X/DAY liquid 04/19/17 Famotidine [Pepcid] 20 mg PO DAILY tablet 04/19/17 Ferrous Sulfate 325 mg PO BIDCM tablet 04/19/17 Levofloxacin [Levaquin] 750 mg PO DAILY #2 tablet 04/19/17 Magnesium Oxide [Mag-Ox 400] 400 mg PO DAILYCM tablet 04/19/17 Metoprolol Tartrate [Lopressor 25 mg PO BID #0 04/19/17 (beta kuldip)] Polyethylene Glycol 3350 [Miralax] 17 gm PO DAILY packet 04/19/17 Warfarin [Coumadin] 2 mg PO DAILY@1700 tablet 04/19/17 Surgical History: coronary bypass surgery Psychiatric History: No pertinent psych hx 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 Smoking Status: Never smoker Tobacco Use: Non-smoker Alcohol: None Drugs: None - *Family History Maternal History Items: Unknown - pt has dementia Paternal History Items: Unknown - pt has dementia Review of Systems Constitutional: Denies: Chills, Fever, Weight Change HEENT: Denies: Head Aches, Sinus Congestion, Sinus Drainage Cardiovascular: Denies: Chest Pain, Palpitations Respiratory: Denies: Cough, Shortness of breath at rest, Sputum production Gastrointestinal: Denies: Abdominal Pain, Nausea, Vomiting Genitourinary: Denies: Dysuria Musculoskeletal: Denies: Joint Pain, Joint Tenderness Skin: Denies: Rash, Wounds Neurological: Denies: Numbness, Tingling, Focal weakness Psychiatric: Denies: Anxiety, Depression, Homicidal Ideations, Suicidal Ideations Hematologic/ Lymphatic: Denies: Easy Bruising, Easy Bleeding VTE Information - Inpt Only VTE Present on Admission: No VTE Mechan Device Prophylaxis: Knee High NELLI Hose VTE Pharm Prophylaxis ordered?: No Reason prophylaxis not ordered:: Treatment Not Indicated Patient Problems: Active and Suspected Problems Hospital-acquired pneumonia (Acute) Influenza A H1N1 infection (Acute) Cough (Acute) Vomiting (Acute) Edema (Acute) Hypokalemia (Acute) - Physical Exam General: Alert, Oriented x3, Cooperative HEENT: Atraumatic, PERRLA, EOMI, Normocephalic Neck: Supple, No JVD, Negative Carotid Bruits Lungs: Clear to auscultation, Normal air movement Cardiovascular: Regular rate, No murmurs Abdomen: Bowel Sounds Present, Soft, Non Tender Extremities: No edema, Capillary Refill Less than 3 Seconds Skin: No rashes, No breakdown Musculoskeletal: No Tenderness to Palpation of Joints or Extremities Neurological: Cranial nerves II-XII grossly intact Psych/Mental Status: Normal Affect, Appropriate Vital Signs BP 116/66 04/19/17 18:11 Body Mass Index (BMI) 32.7 Assessment/Plan Active and Suspected Problems Hospital-acquired pneumonia (Acute) Influenza A H1N1 infection (Acute) Cough (Acute) Vomiting (Acute) Edema (Acute) Hypokalemia (Acute) 82 year old female with below past medical history hospitalized for hospital acquired pneumonia secondary to influenza A, complicated by encephalopathy from underlying Alzheimer's Disease, admitted to TCU for rehabilitation, strengthening, prior to discharge home with family. * Debility - PT/OT. * Pain - Tylenol 1000MG Q8H PRN mild pain. * Bowel - Miralax 17GM daily. * Pneumonia vaccination - Administer Prevnar 13 and/or Pneumovax 23 as necessary. * DVT prophylaxis - Not necessary, already on warfarin. * Coronary Artery Disease - Metoprolol 25MG BID, Aspirin 81MG daily. * Hyperlipidemia - Atorvastatin 20MG QHS, Fish Oil 1000MG BID (No clinical evidence showing fish oil is helpful). * Vitamin D deficiency - D3 1000IU daily. * Iron deficiency anemia - Ferrous sulfate 325MG BID. * Edema - Lasix 20MG daily. * Hypokalemia - KCL 10MEQ daily. * Dry Eyes - Renew Eyedrops 1GTT OU 4x/day, Artificial Tears 2GTT OU 4x/day. * Nutrition - Ensure Enlive 120ML 4x/day. * GERD - Famotidine 20MG daily. * Right Hospital Acquired Pneumonia - Levaquin 750MG po daily x 2 days. * Hypomagnesemia - Mag Oxide 400MG daily. * Atrial Fibrillation - Metoprolol 25MG BID, Warfarin 2MG daily, follow INR.
[2017-04-19 20:43] VITALS: PULSE 130; O2SAT 96
[2017-04-19 20:57] VITALS: BMI 33.1
[2017-04-19 20:59] VITALS: BMI 33.2
[2017-04-19 22:24] VITALS: BP 128/89; PULSE 93
[2017-04-19] MEDS: Metoprolol Tartrate 25 MG Tablet PO (22:24)
[2017-04-19] MEDS: Atorvastatin Calcium 20 MG Tablet PO (22:24)
[2017-04-20 06:15] VITALS: BP 148/72; PULSE 89
[2017-04-20] MEDS: Omega-3 Acid Ethyl Esters 1 GM Capsule PO ×2 (06:15→16:44)
[2017-04-20] MEDS: Metoprolol Tartrate 25 MG Tablet PO ×2 (06:15→16:43)
[2017-04-20] MEDS: levoFLOXacin 750 MG Tablet PO (06:15)
[2017-04-20] MEDS: Polyethylene Glycol 3350 17 GM PACKET PO (06:15)
[2017-04-20] MEDS: Furosemide 20 MG Tablet PO (06:16)
[2017-04-20] MEDS: Famotidine 20 MG Tablet PO (06:16)
[2017-04-20] MEDS: Aspirin 81 MG TAB.CHEW PO (08:20)
[2017-04-20] MEDS: Magnesium Oxide 400 MG Tablet PO (08:21)
[2017-04-20] MEDS: Ferrous Sulfate 325 MG Tablet PO ×2 (08:21→16:43)
[2017-04-20] MEDS: Tuberculin,Purif.prot.deriv. 50 TU/ML Vial 5 ML ID (10:03)
[2017-04-20 11:14] VITALS: O2SAT 97
[2017-04-20 15:41] VITALS: BP 114/68; PULSE 110; RESP 18; TEMP 36.6; O2SAT 94
[2017-04-20 16:43] VITALS: BP 114/68; PULSE 110
[2017-04-20] MEDS: Atorvastatin Calcium 20 MG Tablet PO (21:04)
[2017-04-21] VITALS (8 sets, daily range): BP systolic 112; BP diastolic 53; PULSE 78–113; RESP 18–24; TEMP 36.8–37; O2SAT 93–96
[2017-04-21] MEDS: Furosemide 20 MG Tablet PO (06:47)
[2017-04-21] MEDS: Famotidine 20 MG Tablet PO (06:47)
[2017-04-21] MEDS: Omega-3 Acid Ethyl Esters 1 GM Capsule PO ×2 (06:48→16:46)
[2017-04-21] MEDS: levoFLOXacin 750 MG Tablet PO (06:48)
[2017-04-21] MEDS: Metoprolol Tartrate 25 MG Tablet PO ×2 (06:57→16:46)
[2017-04-21 07:58] LABS: Hematocrit 37.4 % (37-47); Hemoglobin 11.3 g/dl (12.0-15.0); Mean Corp Hgb Conc 30.2 g/gl (32-36); Mean Corpuscular Hgb 27.5 pg (27.0-32.0); Platelet Count 410 K/mm3 (150-450); RBC Distribution Width CV 15.3 % (11.6-14.6); RBC Distribution Width SD 50.5 fl (35.1-43.9); Red Blood Count 4.11 M/mm3 (4.2-5.4); White Blood Count 19.4 K/mm3 (4.4-11.0)
[2017-04-21 08:00] LABS: Differential Indicated MANUAL DIFF; POSITIVE COUNT YES; POSITIVE DIFFERENTIAL NO; POSITIVE MORPHOLOGY YES
[2017-04-21 08:05] LABS: Anion Gap 10 (5-15); BUN 32 mg/dL (7-18); BUN/Creat Ratio 34.5 RATIO (10-20); Calcium,Total 10.1 mg/dL (8.5-10.1); Chloride 103 mmol/L (98-107); Creatinine, Serum 0.93 mg/dL (0.55-1.02); EST Glomerular Filtration Rate 61 mL/min (>60); Est Glom Filt Rate - Afr Amer 74 mL/min (>60); Estimated Creatinine Clearance 53.91 ml/min; Glucose 146 mg/dL (74-106); Potassium 3.6 mmol/L (3.5-5.1); Sodium Level 141 mmol/L (136-145)
--- NOTE | 2017-04-21 08:33 | NURSING ---
PT UNDER PRECAUTIONS FOR FLU.
[2017-04-21] MEDS: Ferrous Sulfate 325 MG Tablet PO ×2 (08:34→16:34)
[2017-04-21] MEDS: Aspirin 81 MG TAB.CHEW PO (08:34)
[2017-04-21] MEDS: Magnesium Oxide 400 MG Tablet PO (08:34)
[2017-04-21 09:04] LABS: Lymphocyte 14 % (19-41); Metamyelocyte 1 % (0-1); Monocyte 7 % (0-10); Neutrophil-Band 10 % (0-5); Neutrophil-Segmented 68 % (47-70); Total Cells Counted 100 (MANUAL DIFF)
[2017-04-21 09:05] LABS: Anisocytosis 1+; Hypochromasia 1+
[2017-04-21 09:06] LABS: Platelet Estimate ADEQUATE (ADEQ); Platelet Morphology LARGE; Polychromasia 1+
[2017-04-21 09:07] LABS: Absolute Lymphocyte Count 2.72 X10^3/ul (0.83-4.51); Absolute Neutrophil Count 15.1 X10^3/uL (2.0-7.7)
--- NOTE | 2017-04-21 10:42 | NURSING ---
Addendum entered by Deena Horton 04/21/17 16:50: Daughter updated on N.O. asking about a repeat CXR, last xray on 04/18/17. Dr. Salgado updated, N.O. given. Pt stating she feels much better after her breathing treatment. Cont to monitor. Original Note: Addendum entered by Deena Horton 04/21/17 11:36: This nurse in to speak with pt. Pt asking about breathing treatments. Pt denies production with cough. Dr. Salgado updated, N.O. for duonebs. Original Note: PT COUGHING AND GETS INCONTINENT. MOIST COUGH WITH EXPIATORY WHEEZES. PT FELT WARM,TEMP 98.3 ORAL. HR 113, OXYGEN 96% ROOM AIR. PT STATED SHE FELT SOB. ASKED PT IF SHE HAS OXYGEN, PT STATED SHE HAS IT AT HOME WHEN SLEEPING AT 2L. THIS NURSE AND AID CHANGED BED LINEN AND PT GOWN. CLEANED PT UP AND APPLYED ATTENDS. REPORTED TO PADMINI PETER
[2017-04-21] MEDS: Ipratropium/Albuterol Sulfate 3 ML AMPUL.NEB INHALATION (13:35)
[2017-04-21] MEDS: Menthol/Lanolin/Calamine/Znox 113 GM Tube 1 APPLIC TOPICAL ×2 (16:35→20:26)
--- NOTE | 2017-04-21 16:46 | RAD_ITS ---
STUDY: X-RAY CHEST REASON FOR EXAM: Female, 82 years old. Cough TECHNIQUE: PA and lateral views of the chest. COMPARISON: April 17, 2017 FINDINGS: There is near complete resolution of the right upper lobe opacity. There is a curvilinear opacity within the right lower lung that likely reflects underlying atelectasis. No new focal consolidation is visualized. There are stable prominent interstitial markings present. There are sternotomy wires in place. The cardiomediastinal silhouette is stable. Normal visualized aortic arch and descending thoracic aorta. There are diffuse degenerative changes of the visualized thoracic spine. Normal visualized ribs, clavicles, and shoulders. There is no demonstrated abnormality of the visualized soft tissue structures of the upper abdomen. RAD/Chest PA and Lateral IMPRESSION: Near complete resolution of right upper lobe infiltrate. Right basilar atelectasis. Electronically Signed: Margarita Villela MD at 18:11 EST Tel , Service support ,
[2017-04-21] MEDS: Atorvastatin Calcium 20 MG Tablet PO (20:26)
[2017-04-22] MEDS: Polyethylene Glycol 3350 17 GM PACKET PO (05:26)
[2017-04-22] MEDS: Famotidine 20 MG Tablet PO (05:26)
[2017-04-22] MEDS: Omega-3 Acid Ethyl Esters 1 GM Capsule PO ×2 (05:26→17:28)
[2017-04-22] MEDS: Furosemide 20 MG Tablet PO (05:26)
[2017-04-22] MEDS: Menthol/Lanolin/Calamine/Znox 113 GM Tube 1 APPLIC TOPICAL ×3 (05:26→20:34)
[2017-04-22 05:27] VITALS: BP 147/73; PULSE 105
[2017-04-22] MEDS: Metoprolol Tartrate 25 MG Tablet PO ×2 (05:27→17:28)
[2017-04-22 07:31] LABS: International Normalized Ratio 1.8; Prothrombin Time (Protime)PT. 19.8 SECONDS (11.7-14.9)
[2017-04-22] MEDS: Magnesium Oxide 400 MG Tablet PO (08:30)
[2017-04-22] MEDS: Aspirin 81 MG TAB.CHEW PO (08:30)
[2017-04-22] MEDS: Ferrous Sulfate 325 MG Tablet PO ×2 (08:30→17:28)
[2017-04-22 08:37] VITALS: PULSE 86; RESP 18; O2SAT 95
[2017-04-22] MEDS: Ipratropium/Albuterol Sulfate 3 ML AMPUL.NEB INHALATION (08:37)
--- NOTE | 2017-04-22 09:36 | NURSING ---
dr poe notified of chest xray results. No new orders
[2017-04-22 15:10] LABS: Pathologist Review Reviewed
[2017-04-22 15:26] VITALS: BP 153/91; PULSE 96; RESP 18; TEMP 36.9; O2SAT 94
[2017-04-22 17:28] VITALS: PULSE 76
[2017-04-22] MEDS: Atorvastatin Calcium 20 MG Tablet PO (20:34)
[2017-04-23] MEDS: Menthol/Lanolin/Calamine/Znox 113 GM Tube 1 APPLIC TOPICAL ×3 (05:16→20:44)
[2017-04-23] MEDS: Polyethylene Glycol 3350 17 GM PACKET PO (05:16)
[2017-04-23 05:17] VITALS: BP 137/75; PULSE 103
[2017-04-23] MEDS: Furosemide 20 MG Tablet PO (05:17)
[2017-04-23] MEDS: Famotidine 20 MG Tablet PO (05:17)
[2017-04-23] MEDS: Omega-3 Acid Ethyl Esters 1 GM Capsule PO ×2 (05:17→17:09)
[2017-04-23] MEDS: Metoprolol Tartrate 25 MG Tablet PO ×2 (05:17→17:10)
[2017-04-23] MEDS: Magnesium Oxide 400 MG Tablet PO (07:27)
[2017-04-23] MEDS: Aspirin 81 MG TAB.CHEW PO (07:27)
[2017-04-23] MEDS: Ferrous Sulfate 325 MG Tablet PO ×2 (07:27→17:09)
[2017-04-23 07:54] VITALS: O2SAT 95
[2017-04-23 08:48] VITALS: PULSE 86; O2SAT 96
--- NOTE | 2017-04-23 12:25 | PCM.PN.RX ---
<LutherWillis sanz D - Last Filed: 04/23/17 12:25> Progress Note - Pharmacy Subjective: TCU Admission Objective: Allergies Penicillins Allergy (Verified 04/14/17 13:56) Rash Home Medications Medication Instructions Recorded Aspirin [Aspirin, Baby] 81 mg PO DAILY@0800 04/11/17 Atorvastatin Calcium [Lipitor] 20 mg PO QHS 04/11/17 Cholecalciferol (Vitamin D3) 1,000 unit PO DAILY 04/11/17 [Vitamin D3] Ferrous Sulfate 325 mg PO BIDCM 04/11/17 Furosemide [Lasix] 20 mg PO DAILY 04/11/17 [place]-3 Fatty Acids/Fish Oil [Fish 1 each PO BID 04/11/17 Oil 1,000 mg Capsule] Potassium Chloride 10 meq PO DAILY 04/11/17 Renew Eye Drops 1 drop EACH EYE 4X/DAY 04/16/17 Acetaminophen [Tylenol Tablet] 650 mg PO Q6H PRN PRN tablet 04/19/17 Dextran 70/He-Cell [Tears 2 drop EACH EYE 4X/DAY 04/19/17 Naturale, Artificial Tears] Ensure Enlive 120 ml PO 4X/DAY 04/19/17 Famotidine [Pepcid] 20 mg PO DAILY 04/19/17 Levofloxacin [Levaquin] 750 mg PO DAILY 04/19/17 Magnesium Oxide [Mag-Ox 400] 400 mg PO DAILYCM 04/19/17 Metoprolol Tartrate [Lopressor 25 mg PO BID 04/19/17 (beta shantal)] Polyethylene Glycol 3350 [Miralax] 17 gm PO DAILY 04/19/17 Warfarin [Coumadin] 2 mg PO DAILY@1700 04/19/17 Current Medications Generic Name Dose Route Start Last Admin Trade Name Freq PRN Reason Stop Dose Admin Acetaminophen 650 mg 04/19/17 19:54 Tylenol PO Q6H PRN PRN Mild Pain (1-3)/Temp > 100.7 F Albuterol/Ipratropium 3 ml 04/21/17 11:35 04/22/17 08:37 Duoneb INHALATION 3 ml Q6H.RT PRN Administration SOB &/OR WHEEZING Artificial Tears 2 drop 04/19/17 22:00 04/23/17 11:28 Tears Naturale, Artificial Tears EACH EYE 2 drop 4X/DAY RAYN Administration Aspirin 81 mg 04/20/17 08:00 02/06/18 07:27 Aspirin, Baby PO 81 mg DAILY@0800 [facility] Administration Atorvastatin Calcium 20 mg 04/19/17 22:00 04/22/17 20:34 Lipitor PO 20 mg QHS [facility] Administration Bisacodyl 10 mg 04/19/17 20:16 Dulcolax RECTAL DAILY PRN Constipation Calamine/Phenol 1 applic 04/21/17 14:00 04/23/17 11:30 Calmoseptine Ointment TOPICAL 1 applicatio TID [facility] Administration Protocol Cholecalciferol 1,000 unit 04/20/17 08:00 04/23/17 07:27 Vitamin D PO 1,000 unit DAILYCM [facility] Administration Famotidine 20 mg 04/20/17 06:00 04/23/17 05:17 Pepcid PO 20 mg DAILY [facility] Administration Ferrous Sulfate 325 mg 04/20/17 08:00 04/23/17 07:27 [facility] Furosemide 20 mg 04/20/17 06:00 04/23/17 05:17 Lasix PO 20 mg DAILY [facility] Administration Magnesium Oxide 400 mg 04/20/17 08:00 04/23/17 07:27 Mag-Ox 400 [facility] Administration Metoprolol Tartrate 25 mg 04/19/17 20:00 04/23/17 05:17 Lopressor (Beta Shantal) PO 25 mg BID [facility] Administration Nutritional Formula (Lactose Free) 120 ml 04/19/17 22:00 04/23/17 11:29 Ensure Enlive PO 120 ml 4X/DAY [facility] Administration Uzztw-3-Rvru Ethyl Esters 1 gm 04/20/17 06:00 04/23/17 05:17 Lovaza PO 1 gm BID [facility] Administration Polyethylene Glycol 17 gm 04/20/17 06:00 04/23/17 05:16 Miralax PO 17 gm DAILY [facility] Administration Potassium Chloride 10 meq 04/20/17 06:00 04/23/17 05:17 K-Dur PO 10 meq DAILY [facility] Administration Prednisone 30 mg 04/23/17 08:00 04/23/17 07:27 Prednisone PO 04/25/17 08:01 30 mg DAILY@0800 [facility] Administration Prednisone 20 mg 04/26/17 08:00 Prednisone PO 04/28/17 08:01 DAILY@0800 [facility] Prednisone 10 mg 04/29/17 08:00 Prednisone PO 05/01/17 08:01 DAILY@0800 [facility] Sodium Biphosphate/Sodium Phosphate 1 bottle 04/19/17 20:19 Fleet Enema RECTAL DAILY PRN Constipation Tuberculin PPD 5 tu 04/27/17 10:00 Tubersol, Aplisol, Ppd ID 04/27/17 10:01 X1 ONE Warfarin Sodium 2 mg 04/20/17 17:00 04/22/17 17:27 Coumadin (Pbkc) PO 2 mg DAILY@1700 [facility] Administration Problem List Alzheimer's disease (Chronic) Hospital-acquired pneumonia (Acute) Influenza A H1N1 infection (Acute) Cough (Acute) Vomiting (Acute) Vitamin D deficiency (Chronic) Iron deficiency anemia (Chronic) Edema (Acute) Hypokalemia (Acute) GERD (gastroesophageal reflux disease) (Chronic) Vital Signs Temp Pulse Resp BP Pulse Ox 98.4 F 86 18 137/75 H 96 04/22/17 15:26 04/23/17 08:48 04/22/17 15:26 04/23/17 05:17 04/23/17 08:48 Oxygen Flow Rate 2 Oxygen Delivery Method Room Air Weight: 74.5 kg Body Mass Index (BMI) 33.1 Sodium 141 mmol/L (136-145) 04/21/17 07:28 Potassium 3.6 mmol/L (3.5-5.1) 04/21/17 07:28 Chloride 103 mmol/L (98-107) 04/21/17 07:28 Carbon Dioxide 28.0 mmol/L (21.0-32.0) 04/21/17 07:28 Anion Gap 10 (5-15) 04/21/17 07:28 BUN 32 mg/dL (7-18) H 04/21/17 07:28 Creatinine 0.93 mg/dL (0.55-1.02) 04/21/17 07:28 Est GFR (MDRD) Af Amer 74 mL/min (>60) 04/21/17 07:28 Est GFR (MDRD) Non-Af 61 mL/min (>60) 04/21/17 07:28 BUN/Creatinine Ratio 34.5 RATIO (10-20) H 04/21/17 07:28 Glucose 146 mg/dL (74-106) H 04/21/17 07:28 Assessment/Plan: 1) Pain APAP for mild pain. Continue to monitor prn medication use, daily pain scores. 2) AFib/CAD Warfarin, metoprolol, ASA. Avg BP/HR within goal ranges, PT/INR not within goal range at this time. Continue to monitor BP/HR, PT/INR, s/s bleeding. 3) Pulm Prednisone taper, Duoneb aerosols scheduled. Continue to monitor for exacerbation. 4) HLD Atorvastatin at HS. No lipids in EMR, hepatic enzymes wnl. Continue to monitor lipids, enzymes. 5) Edema Furosemide daily. K wnl, BUN/SCr at baseline. Continue to monitor electrolytes, renal function. 6) Nutrition [place]-3, KCl, MgO, Fe, Ensure, D. Continue to monitor electrolytes. 7) GI Famotidine daily. Continue to monitor for s/s GI distress. 8) Ophtho Artificial tears. Continue to monitor prn medication use. Psychotropic Medications: None Unnecessary Medications: None Bowel Regimen: 9) PEG daily, prn enema, prn bisacodyl. Continue to monitor prn medication use, for constipation/diarrhea. Date of Note:: 04/23/17 - Provider Comments Provider responsibility: Provider responsible to enter orders to implement recommendations <Bravo Salgado Chi - Last Filed: 04/23/17 17:44> Progress Note - Pharmacy Subjective: [] Objective: Allergies Penicillins Allergy (Verified 04/14/17 13:56) Rash Home Medications Medication Instructions Recorded Aspirin [Aspirin, Baby] 81 mg PO DAILY@0800 04/11/17 Atorvastatin Calcium [Lipitor] 20 mg PO QHS 04/11/17 Cholecalciferol (Vitamin D3) 1,000 unit PO DAILY 04/11/17 [Vitamin D3] Ferrous Sulfate 325 mg PO BIDCM 04/11/17 Furosemide [Lasix] 20 mg PO DAILY 04/11/17 [place]-3 Fatty Acids/Fish Oil [Fish 1 each PO BID 04/11/17 Oil 1,000 mg Capsule] Potassium Chloride 10 meq PO DAILY 04/11/17 Renew Eye Drops 1 drop EACH EYE 4X/DAY 04/16/17 Acetaminophen [Tylenol Tablet] 650 mg PO Q6H PRN PRN tablet 04/19/17 Dextran 70/He-Cell [Tears 2 drop EACH EYE 4X/DAY 04/19/17 Naturale, Artificial Tears] Ensure Enlive 120 ml PO 4X/DAY 04/19/17 Famotidine [Pepcid] 20 mg PO DAILY 04/19/17 Levofloxacin [Levaquin] 750 mg PO DAILY 04/19/17 Magnesium Oxide [Mag-Ox 400] 400 mg PO DAILYCM 04/19/17 Metoprolol Tartrate [Lopressor 25 mg PO BID 04/19/17 (beta shantal)] Polyethylene Glycol 3350 [Miralax] 17 gm PO DAILY 04/19/17 Warfarin [Coumadin] 2 mg PO DAILY@1700 04/19/17 Current Medications Generic Name Dose Route Start Last Admin Trade Name Freq PRN Reason Stop Dose Admin Acetaminophen 650 mg 04/19/17 19:54 Tylenol PO Q6H PRN PRN Mild Pain (1-3)/Temp > 100.7 F Albuterol/Ipratropium 3 ml 04/21/17 11:35 04/22/17 08:37 Duoneb INHALATION 3 ml Q6H.RT PRN Administration SOB &/OR WHEEZING Artificial Tears 2 drop 04/19/17 22:00 04/23/17 17:10 Tears Naturale, Artificial Tears EACH EYE 2 drop 4X/DAY RYAN Administration Aspirin 81 mg 04/20/17 08:00 04/23/17 07:27 Aspirin, Baby PO 81 mg DAILY@0800 [facility] Administration Atorvastatin Calcium 20 mg 04/19/17 22:00 04/22/17 20:34 Lipitor PO 20 mg QHS RYAN Administration Bisacodyl 10 mg 04/19/17 20:16 Dulcolax RECTAL DAILY PRN Constipation Calamine/Phenol 1 applic 04/21/17 14:00 04/23/17 11:30 Calmoseptine Ointment TOPICAL 1 applicatio TID [facility] Administration Protocol Cholecalciferol 1,000 unit 04/20/17 08:00 04/23/17 07:27 Vitamin D PO 1,000 unit DAILYCM [facility] Administration Famotidine 20 mg 04/20/17 06:00 04/23/17 05:17 Pepcid PO 20 mg DAILY RYAN Administration Ferrous Sulfate 325 mg 04/20/17 08:00 04/23/17 17:09 Ferrous Sulfate PO 325 mg BIDCM [facility]AN Administration Furosemide 20 mg 04/20/17 06:00 04/23/17 05:17 Lasix PO 20 mg DAILY [facility]AN Administration Magnesium Oxide 400 mg 04/20/17 08:00 04/23/17 07:27 Mag-Ox 400 PO 400 mg DAILYCM [facility]AN Administration Metoprolol Tartrate 25 mg 04/19/17 20:00 04/23/17 17:10 Lopressor (Beta Shantal) PO 25 mg BID [facility] Administration Nutritional Formula (Lactose Free) 120 ml 04/19/17 22:00 04/23/17 17:18 Ensure Enlive PO 120 ml 4X/DAY RYAN Administration Ralqc-0-Nulu Ethyl Esters 1 gm 04/20/17 06:00 04/23/17 17:09 Lovaza PO 1 gm BID [facility]AN Administration Polyethylene Glycol 17 gm 04/20/17 06:00 04/23/17 05:16 Miralax PO 17 gm DAILY [facility]AN Administration Potassium Chloride 10 meq 04/20/17 06:00 04/23/17 05:17 K-Dur PO 10 meq DAILY [facility]AN Administration Prednisone 30 mg 04/23/17 08:00 04/23/17 07:27 Prednisone PO 04/25/17 08:01 30 mg DAILY@0800 [facility] Administration Prednisone 20 mg 04/26/17 08:00 Prednisone PO 04/28/17 08:01 DAILY@0800 [facility] Prednisone 10 mg 04/29/17 08:00 Prednisone PO 05/01/17 08:01 DAILY@0800 [facility] Sodium Biphosphate/Sodium Phosphate 1 bottle 04/19/17 20:19 Fleet Enema RECTAL DAILY PRN Constipation Tuberculin PPD 5 tu 04/27/17 10:00 Tubersol, Aplisol, Ppd ID 04/27/17 10:01 X1 ONE Warfarin Sodium 2 mg 04/20/17 17:00 04/23/17 17:10 Coumadin (Pbkc) PO 2 mg DAILY@1700 [facility] Administration Problem List GERD (gastroesophageal reflux disease) (Chronic) Hypokalemia (Acute) Edema (Acute) Iron deficiency anemia (Chronic) Vitamin D deficiency (Chronic) Vomiting (Acute) Cough (Acute) Influenza A H1N1 infection (Acute) Hospital-acquired pneumonia (Acute) Alzheimer's disease (Chronic) Vital Signs Temp Pulse Resp BP Pulse Ox 98.4 F 101 H 20 H 135/85 H 93 04/23/17 15:13 04/23/17 17:10 04/23/17 15:13 04/23/17 17:10 04/23/17 15:13 Oxygen Flow Rate 2 Oxygen Delivery Method Room Air Weight: 73.5 kg Body Mass Index (BMI) 33.1 Sodium 141 mmol/L (136-145) 04/21/17 07:28 Potassium 3.6 mmol/L (3.5-5.1) 04/21/17 07:28 Chloride 103 mmol/L (98-107) 04/21/17 07:28 Carbon Dioxide 28.0 mmol/L (21.0-32.0) 04/21/17 07:28 Anion Gap 10 (5-15) 04/21/17 07:28 BUN 32 mg/dL (7-18) H 04/21/17 07:28 Creatinine 0.93 mg/dL (0.55-1.02) 04/21/17 07:28 Est GFR (MDRD) Af Amer 74 mL/min (>60) 04/21/17 07:28 Est GFR (MDRD) Non-Af 61 mL/min (>60) 04/21/17 07:28 BUN/Creatinine Ratio 34.5 RATIO (10-20) H 04/21/17 07:28 Glucose 146 mg/dL (74-106) H 04/21/17 07:28 Assessment/Plan: Psychotropic Medications: Unnecessary Medications: Bowel Regimen: - Provider Comments Provider responsibility: Provider responsible to enter orders to implement recommendations Provider Comments to Recommendations by Pharmacy: Agree
--- NOTE | 2017-04-23 12:51 | PHA.CONS_ITS ---
<LutherWillis sanz D - Last Filed: 04/23/17 12:25> Progress Note - Pharmacy Subjective: TCU Admission Objective: Allergies Penicillins Allergy (Verified 04/14/17 13:56) Rash Home Medications Medication Instructions Recorded Aspirin [Aspirin, Baby] 81 mg PO DAILY@0800 04/11/17 Atorvastatin Calcium [Lipitor] 20 mg PO QHS 04/11/17 Cholecalciferol (Vitamin D3) 1,000 unit PO DAILY 04/11/17 [Vitamin D3] Ferrous Sulfate 325 mg PO BIDCM 04/11/17 Furosemide [Lasix] 20 mg PO DAILY 04/11/17 [place]-3 Fatty Acids/Fish Oil [Fish 1 each PO BID 04/11/17 Oil 1,000 mg Capsule] Potassium Chloride 10 meq PO DAILY 04/11/17 Renew Eye Drops 1 drop EACH EYE 4X/DAY 04/16/17 Acetaminophen [Tylenol Tablet] 650 mg PO Q6H PRN PRN tablet 04/19/17 Dextran 70/He-Cell [Tears 2 drop EACH EYE 4X/DAY 04/19/17 Naturale, Artificial Tears] Ensure Enlive 120 ml PO 4X/DAY 04/19/17 Famotidine [Pepcid] 20 mg PO DAILY 04/19/17 Levofloxacin [Levaquin] 750 mg PO DAILY 04/19/17 Magnesium Oxide [Mag-Ox 400] 400 mg PO DAILYCM 04/19/17 Metoprolol Tartrate [Lopressor 25 mg PO BID 04/19/17 (beta shantal)] Polyethylene Glycol 3350 [Miralax] 17 gm PO DAILY 04/19/17 Warfarin [Coumadin] 2 mg PO DAILY@1700 04/19/17 Current Medications Generic Name Dose Route Start Last Admin Trade Name Freq PRN Reason Stop Dose Admin Acetaminophen 650 mg 04/19/17 19:54 Tylenol PO Q6H PRN PRN Mild Pain (1-3)/Temp > 100.7 F Albuterol/Ipratropium 3 ml 04/21/17 11:35 04/22/17 08:37 Duoneb INHALATION 3 ml Q6H.RT PRN Administration SOB &/OR WHEEZING Artificial Tears 2 drop 04/19/17 22:00 04/23/17 11:28 Tears Naturale, Artificial Tears EACH EYE 2 drop 4X/DAY RYAN Administration Aspirin 81 mg 04/20/17 08:00 02/06/18 07:27 Aspirin, Baby PO 81 mg DAILY@0800 [facility] Administration Atorvastatin Calcium 20 mg 04/19/17 22:00 04/22/17 20:34 Lipitor PO 20 mg QHS [facility] Administration Bisacodyl 10 mg 04/19/17 20:16 Dulcolax RECTAL DAILY PRN Constipation Calamine/Phenol 1 applic 04/21/17 14:00 04/23/17 11:30 Calmoseptine Ointment TOPICAL 1 applicatio TID [facility] Administration Protocol Cholecalciferol 1,000 unit 04/20/17 08:00 04/23/17 07:27 Vitamin D PO 1,000 unit DAILYCM [facility] Administration Famotidine 20 mg 04/20/17 06:00 04/23/17 05:17 Pepcid PO 20 mg DAILY [facility] Administration Ferrous Sulfate 325 mg 04/20/17 08:00 04/23/17 07:27 [facility] Furosemide 20 mg 04/20/17 06:00 04/23/17 05:17 Lasix PO 20 mg DAILY [facility] Administration Magnesium Oxide 400 mg 04/20/17 08:00 04/23/17 07:27 Mag-Ox 400 [facility] Administration Metoprolol Tartrate 25 mg 04/19/17 20:00 04/23/17 05:17 Lopressor (Beta Shantal) PO 25 mg BID [facility] Administration Nutritional Formula (Lactose Free) 120 ml 04/19/17 22:00 04/23/17 11:29 Ensure Enlive PO 120 ml 4X/DAY [facility] Administration Uposx-1-Vhle Ethyl Esters 1 gm 04/20/17 06:00 04/23/17 05:17 Lovaza PO 1 gm BID [facility] Administration Polyethylene Glycol 17 gm 04/20/17 06:00 04/23/17 05:16 Miralax PO 17 gm DAILY [facility] Administration Potassium Chloride 10 meq 04/20/17 06:00 04/23/17 05:17 K-Dur PO 10 meq DAILY [facility] Administration Prednisone 30 mg 04/23/17 08:00 04/23/17 07:27 Prednisone PO 04/25/17 08:01 30 mg DAILY@0800 [facility] Administration Prednisone 20 mg 04/26/17 08:00 Prednisone PO 04/28/17 08:01 DAILY@0800 [facility] Prednisone 10 mg 04/29/17 08:00 Prednisone PO 05/01/17 08:01 DAILY@0800 [facility] Sodium Biphosphate/Sodium Phosphate 1 bottle 04/19/17 20:19 Fleet Enema RECTAL DAILY PRN Constipation Tuberculin PPD 5 tu 04/27/17 10:00 Tubersol, Aplisol, Ppd ID 04/27/17 10:01 X1 ONE Warfarin Sodium 2 mg 04/20/17 17:00 04/22/17 17:27 Coumadin (Pbkc) PO 2 mg DAILY@1700 [facility] Administration Problem List Alzheimer's disease (Chronic) Hospital-acquired pneumonia (Acute) Influenza A H1N1 infection (Acute) Cough (Acute) Vomiting (Acute) Vitamin D deficiency (Chronic) Iron deficiency anemia (Chronic) Edema (Acute) Hypokalemia (Acute) GERD (gastroesophageal reflux disease) (Chronic) Vital Signs Temp Pulse Resp BP Pulse Ox 98.4 F 86 18 137/75 H 96 04/22/17 15:26 04/23/17 08:48 04/22/17 15:26 04/23/17 05:17 04/23/17 08:48 Oxygen Flow Rate 2 Oxygen Delivery Method Room Air Weight: 74.5 kg Body Mass Index (BMI) 33.1 Sodium 141 mmol/L (136-145) 04/21/17 07:28 Potassium 3.6 mmol/L (3.5-5.1) 04/21/17 07:28 Chloride 103 mmol/L (98-107) 04/21/17 07:28 Carbon Dioxide 28.0 mmol/L (21.0-32.0) 04/21/17 07:28 Anion Gap 10 (5-15) 04/21/17 07:28 BUN 32 mg/dL (7-18) H 04/21/17 07:28 Creatinine 0.93 mg/dL (0.55-1.02) 04/21/17 07:28 Est GFR (MDRD) Af Amer 74 mL/min (>60) 04/21/17 07:28 Est GFR (MDRD) Non-Af 61 mL/min (>60) 04/21/17 07:28 BUN/Creatinine Ratio 34.5 RATIO (10-20) H 04/21/17 07:28 Glucose 146 mg/dL (74-106) H 04/21/17 07:28 Assessment/Plan: 1) Pain APAP for mild pain. Continue to monitor prn medication use, daily pain scores. 2) AFib/CAD Warfarin, metoprolol, ASA. Avg BP/HR within goal ranges, PT/INR not within goal range at this time. Continue to monitor BP/HR, PT/INR, s/s bleeding. 3) Pulm Prednisone taper, Duoneb aerosols scheduled. Continue to monitor for exacerbation. 4) HLD Atorvastatin at HS. No lipids in EMR, hepatic enzymes wnl. Continue to monitor lipids, enzymes. 5) Edema Furosemide daily. K wnl, BUN/SCr at baseline. Continue to monitor electrolytes, renal function. 6) Nutrition [place]-3, KCl, MgO, Fe, Ensure, D. Continue to monitor electrolytes. 7) GI Famotidine daily. Continue to monitor for s/s GI distress. 8) Ophtho Artificial tears. Continue to monitor prn medication use. Psychotropic Medications: None Unnecessary Medications: None Bowel Regimen: 9) PEG daily, prn enema, prn bisacodyl. Continue to monitor prn medication use, for constipation/diarrhea. Date of Note:: 04/23/17 - Provider Comments Provider responsibility: Provider responsible to enter orders to implement recommendations <Bravo Salgado Chi - Last Filed: 04/23/17 17:44> Progress Note - Pharmacy Subjective: [] Objective: Allergies Penicillins Allergy (Verified 04/14/17 13:56) Rash Home Medications Medication Instructions Recorded Aspirin [Aspirin, Baby] 81 mg PO DAILY@0800 04/11/17 Atorvastatin Calcium [Lipitor] 20 mg PO QHS 04/11/17 Cholecalciferol (Vitamin D3) 1,000 unit PO DAILY 04/11/17 [Vitamin D3] Ferrous Sulfate 325 mg PO BIDCM 04/11/17 Furosemide [Lasix] 20 mg PO DAILY 04/11/17 [place]-3 Fatty Acids/Fish Oil [Fish 1 each PO BID 04/11/17 Oil 1,000 mg Capsule] Potassium Chloride 10 meq PO DAILY 04/11/17 Renew Eye Drops 1 drop EACH EYE 4X/DAY 04/16/17 Acetaminophen [Tylenol Tablet] 650 mg PO Q6H PRN PRN tablet 04/19/17 Dextran 70/He-Cell [Tears 2 drop EACH EYE 4X/DAY 04/19/17 Naturale, Artificial Tears] Ensure Enlive 120 ml PO 4X/DAY 04/19/17 Famotidine [Pepcid] 20 mg PO DAILY 04/19/17 Levofloxacin [Levaquin] 750 mg PO DAILY 04/19/17 Magnesium Oxide [Mag-Ox 400] 400 mg PO DAILYCM 04/19/17 Metoprolol Tartrate [Lopressor 25 mg PO BID 04/19/17 (beta shantal)] Polyethylene Glycol 3350 [Miralax] 17 gm PO DAILY 04/19/17 Warfarin [Coumadin] 2 mg PO DAILY@1700 04/19/17 Current Medications Generic Name Dose Route Start Last Admin Trade Name Freq PRN Reason Stop Dose Admin Acetaminophen 650 mg 04/19/17 19:54 Tylenol PO Q6H PRN PRN Mild Pain (1-3)/Temp > 100.7 F Albuterol/Ipratropium 3 ml 04/21/17 11:35 04/22/17 08:37 Duoneb INHALATION 3 ml Q6H.RT PRN Administration SOB &/OR WHEEZING Artificial Tears 2 drop 04/19/17 22:00 04/23/17 17:10 Tears Naturale, Artificial Tears EACH EYE 2 drop 4X/DAY [facility] Administration Aspirin 81 mg 04/20/17 08:00 04/23/17 07:27 Aspirin, Baby PO 81 mg DAILY@0800 [facility] Administration Atorvastatin Calcium 20 mg 04/19/17 22:00 04/22/17 20:34 Lipitor PO 20 mg QHS [facility] Administration Bisacodyl 10 mg 04/19/17 20:16 Dulcolax RECTAL DAILY PRN Constipation Calamine/Phenol 1 applic 04/21/17 14:00 04/23/17 11:30 Calmoseptine Ointment TOPICAL 1 applicatio TID [facility] Administration Protocol Cholecalciferol 1,000 unit 04/20/17 08:00 04/23/17 07:27 Vitamin D PO 1,000 unit DAILYCM [facility] Administration Famotidine 20 mg 04/20/17 06:00 04/23/17 05:17 Pepcid PO 20 mg DAILY [facility] Administration Ferrous Sulfate 325 mg 04/20/17 08:00 04/23/17 17:09 Ferrous Sulfate PO 325 mg BIDCM [facility] Administration Furosemide 20 mg 04/20/17 06:00 04/23/17 05:17 Lasix PO 20 mg DAILY [facility] Administration Magnesium Oxide 400 mg 04/20/17 08:00 04/23/17 07:27 Mag-Ox 400 PO 400 mg DAILYCM [facility] Administration Metoprolol Tartrate 25 mg 04/19/17 20:00 04/23/17 17:10 Lopressor (Beta Shantal) PO 25 mg BID [facility] Administration Nutritional Formula (Lactose Free) 120 ml 04/19/17 22:00 04/23/17 17:18 Ensure Enlive PO 120 ml 4X/DAY [facility] Administration Rniyg-2-Jmgv Ethyl Esters 1 gm 04/20/17 06:00 04/23/17 17:09 Lovaza PO 1 gm BID [facility] Administration Polyethylene Glycol 17 gm 04/20/17 06:00 04/23/17 05:16 Miralax PO 17 gm DAILY [facility] Administration Potassium Chloride 10 meq 04/20/17 06:00 04/23/17 05:17 K-Dur PO 10 meq DAILY [facility] Administration Prednisone 30 mg 04/23/17 08:00 04/23/17 07:27 Prednisone PO 04/25/17 08:01 30 mg DAILY@0800 [facility] Administration Prednisone 20 mg 04/26/17 08:00 Prednisone PO 04/28/17 08:01 DAILY@0800 [facility] Prednisone 10 mg 04/29/17 08:00 Prednisone PO 05/01/17 08:01 DAILY@0800 [facility] Sodium Biphosphate/Sodium Phosphate 1 bottle 04/19/17 20:19 Fleet Enema RECTAL DAILY PRN Constipation Tuberculin PPD 5 tu 04/27/17 10:00 Tubersol, Aplisol, Ppd ID 04/27/17 10:01 X1 ONE Warfarin Sodium 2 mg 04/20/17 17:00 04/23/17 17:10 Coumadin (Pbkc) PO 2 mg DAILY@1700 [facility] Administration Problem List GERD (gastroesophageal reflux disease) (Chronic) Hypokalemia (Acute) Edema (Acute) Iron deficiency anemia (Chronic) Vitamin D deficiency (Chronic) Vomiting (Acute) Cough (Acute) Influenza A H1N1 infection (Acute) Hospital-acquired pneumonia (Acute) Alzheimer's disease (Chronic) Vital Signs Temp Pulse Resp BP Pulse Ox 98.4 F 101 H 20 H 135/85 H 93 04/23/17 15:13 04/23/17 17:10 04/23/17 15:13 04/23/17 17:10 04/23/17 15:13 Oxygen Flow Rate 2 Oxygen Delivery Method Room Air Weight: 73.5 kg Body Mass Index (BMI) 33.1 Sodium 141 mmol/L (136-145) 04/21/17 07:28 Potassium 3.6 mmol/L (3.5-5.1) 04/21/17 07:28 Chloride 103 mmol/L (98-107) 04/21/17 07:28 Carbon Dioxide 28.0 mmol/L (21.0-32.0) 04/21/17 07:28 Anion Gap 10 (5-15) 04/21/17 07:28 BUN 32 mg/dL (7-18) H 04/21/17 07:28 Creatinine 0.93 mg/dL (0.55-1.02) 04/21/17 07:28 Est GFR (MDRD) Af Amer 74 mL/min (>60) 04/21/17 07:28 Est GFR (MDRD) Non-Af 61 mL/min (>60) 04/21/17 07:28 BUN/Creatinine Ratio 34.5 RATIO (10-20) H 04/21/17 07:28 Glucose 146 mg/dL (74-106) H 04/21/17 07:28 Assessment/Plan: Psychotropic Medications: Unnecessary Medications: Bowel Regimen: - Provider Comments Provider responsibility: Provider responsible to enter orders to implement recommendations Provider Comments to Recommendations by Pharmacy: Agree
[2017-04-23 15:13] VITALS: BP 135/85; PULSE 101; RESP 20; TEMP 36.9; O2SAT 93
[2017-04-23 17:10] VITALS: BP 135/85; PULSE 101
[2017-04-23] MEDS: Carbamide Peroxide 15 ML Bottle 5 DRP OTIC (20:38)
[2017-04-23] MEDS: Atorvastatin Calcium 20 MG Tablet PO (20:39)
[2017-04-24 05:40] VITALS: BP 142/80; PULSE 104
[2017-04-24] MEDS: Metoprolol Tartrate 25 MG Tablet PO ×2 (05:40→16:59)
[2017-04-24] MEDS: Polyethylene Glycol 3350 17 GM PACKET PO (05:40)
[2017-04-24] MEDS: Famotidine 20 MG Tablet PO (05:40)
[2017-04-24] MEDS: Furosemide 20 MG Tablet PO (05:40)
[2017-04-24] MEDS: Omega-3 Acid Ethyl Esters 1 GM Capsule PO ×2 (05:40→16:59)
[2017-04-24] MEDS: Menthol/Lanolin/Calamine/Znox 113 GM Tube 1 APPLIC TOPICAL ×3 (05:40→20:47)
[2017-04-24] MEDS: Magnesium Oxide 400 MG Tablet PO (08:36)
[2017-04-24] MEDS: Ferrous Sulfate 325 MG Tablet PO ×2 (08:36→16:59)
[2017-04-24] MEDS: Aspirin 81 MG TAB.CHEW PO (08:36)
--- NOTE | 2017-04-24 09:49 | CASEMGMT ---
Plan of care meeting held. Resident present as well as resident family. No discharge date set at this time. Resident to continue with further care and treatment on the [facility] Unit at this time. Resident plans to discharge home with daughter, who is with resident most of the time as home. Support given. Will continue to follow. Monique CARRANZA, SHEAR SETTER
--- NOTE | 2017-04-24 15:57 | CASEMGMT ---
Brief interview for mental status (BIMS) and resident mood interview (PHQ-9) completed on this day. BIMS score 10/30. PHQ-9 score 06/11
[2017-04-24 16:00] VITALS: BP 107/70; PULSE 134; RESP 18; TEMP 37.3; O2SAT 90
[2017-04-24 16:59] VITALS: BP 107/70; PULSE 134
[2017-04-24] MEDS: Atorvastatin Calcium 20 MG Tablet PO (20:46)
[2017-04-25 05:19] VITALS: BP 144/61; PULSE 72
[2017-04-25] MEDS: Metoprolol Tartrate 25 MG Tablet PO ×2 (05:19→18:06)
[2017-04-25] MEDS: Famotidine 20 MG Tablet PO (05:19)
[2017-04-25] MEDS: Omega-3 Acid Ethyl Esters 1 GM Capsule PO ×2 (05:19→18:06)
[2017-04-25] MEDS: Furosemide 20 MG Tablet PO (05:19)
[2017-04-25] MEDS: Polyethylene Glycol 3350 17 GM PACKET PO (05:19)
[2017-04-25] MEDS: Menthol/Lanolin/Calamine/Znox 113 GM Tube 1 APPLIC TOPICAL ×3 (05:26→20:55)
[2017-04-25 05:56] LABS: International Normalized Ratio 2.2; Prothrombin Time (Protime)PT. 23.4 SECONDS (11.7-14.9)
[2017-04-25] MEDS: Magnesium Oxide 400 MG Tablet PO (08:32)
[2017-04-25] MEDS: Ferrous Sulfate 325 MG Tablet PO ×2 (08:32→18:06)
[2017-04-25] MEDS: Aspirin 81 MG TAB.CHEW PO (08:32)
[2017-04-25 09:41] VITALS: O2SAT 96
[2017-04-25 10:00] VITALS: PULSE 102; RESP 18; O2SAT 96
[2017-04-25 16:00] VITALS: BP 129/54; PULSE 91; RESP 18; TEMP 36.9; O2SAT 93
[2017-04-25 18:06] VITALS: BP 129/54; PULSE 91
[2017-04-25] MEDS: Atorvastatin Calcium 20 MG Tablet PO (20:53)
[2017-04-26] MEDS: Polyethylene Glycol 3350 17 GM PACKET PO (05:52)
[2017-04-26 05:57] VITALS: BP 157/81; PULSE 78
[2017-04-26] MEDS: Furosemide 20 MG Tablet PO (05:57)
[2017-04-26] MEDS: Metoprolol Tartrate 25 MG Tablet PO ×2 (05:57→17:07)
[2017-04-26] MEDS: Omega-3 Acid Ethyl Esters 1 GM Capsule PO ×2 (05:57→17:07)
[2017-04-26] MEDS: Famotidine 20 MG Tablet PO (05:57)
[2017-04-26] MEDS: Menthol/Lanolin/Calamine/Znox 113 GM Tube 1 APPLIC TOPICAL (05:57)
[2017-04-26 07:00] VITALS: O2SAT 98
[2017-04-26] MEDS: Aspirin 81 MG TAB.CHEW PO (08:03)
[2017-04-26] MEDS: Magnesium Oxide 400 MG Tablet PO (08:03)
[2017-04-26] MEDS: Ferrous Sulfate 325 MG Tablet PO ×2 (08:03→17:07)
--- NOTE | 2017-04-26 12:53 | CASEMGMT ---
Social Work Spoke with resident and resident daughter. This social welfare research worker communicating that discharge date has been set for 05/01/17. Resident and resident daughter requesting for discharge date to be changed to 04/29/17, spoke with staff/therapy, 04/29/17 is an agreeable date at this time. Resident plans to discharge home with daughter. No further recommendations at this time. Resident reporting to have all needed durable medical equipment set up within the home. Resident daughter to provide transportation home for resident at time of discharge. Support given. Proposed discharge date: 04/29/17 PLAN: Discharge home with daughter. Monique CARRANZA, STATUS CONTROLLER
[2017-04-26 16:00] VITALS: BP 128/71; PULSE 116; RESP 18; TEMP 36.5; O2SAT 93
--- NOTE | 2017-04-26 16:10 | PCM.DC.SUM ---
Discharge Date and Diagnosis - Problem List Patient Problems: Active and Suspected Problems Hypokalemia (Acute) Edema (Acute) Vomiting (Acute) Cough (Acute) Influenza A H1N1 infection (Acute) Hospital-acquired pneumonia (Acute) Date of Admission: 04/19/17 Date of Discharge: 04/29/17 - Primary Discharge Diagnosis Active and Suspected Problems Hypokalemia (Acute) Edema (Acute) Vomiting (Acute) Cough (Acute) Influenza A H1N1 infection (Acute) Hospital-acquired pneumonia (Acute) - Secondary Discharge Diagnosis Chronic Problems COPD (chronic obstructive pulmonary disease) (Chronic) HTN (hypertension) (Chronic) Atrial fibrillation (Chronic) Dementia (Chronic) GERD (gastroesophageal reflux disease) (Chronic) Iron deficiency anemia (Chronic) Vitamin D deficiency (Chronic) Alzheimer's disease (Chronic) Normochromic normocytic anemia (Chronic) Hyperlipidemia (Chronic) Hospital Course and Treatment Imaging Results: 04/19/17 20:20 Diet: Regular Diet Food consistency:: Soft Liquid Consistency:: Regular/Thin Diet Comments: Meats in bite size pieces, soft d/t no teeth Clinical Impression(s) from Imaging Studies Chest X-Ray 04/21/17 16:46 IMPRESSION: Near complete resolution of right upper lobe infiltrate. Right basilar atelectasis. Electronically Signed: Margarita Villela MD at 18:11 EST Tel , Service support , Labs (Last 48 Hours) 04/25/17 05:15 PT 23.4 H INR 2.2 Operations: None Procedures: None Summary of Care Provided: The patient is a 82 year old Female with below past medical history hospitalized for hospital acquired pneumonia secondary to influenza A complicated by encephalopathy from underlying Alzheimer's Disease, admitted to TCU for rehabilitation, strengthening. Will discharge home with daughter. No further therapy recommended at this time. Resident lives with daughter and daughter's boyfriend who smoke outside, but the scent of cigarette smoke from their lungs causes burning of eyes and throat from 6 feet away. Recommend resident's living companions stop smoking. Discharge Diet: No Restrictions Discharge Activity: Return to Normal Activity, May Shower, Use Walker Weight Bearing Status: Weight bearing as tolerated Call your doctor if you observe: Fever of 101 or Higher, Inability to urinate, Inability to have a bowel movement, Shortness of breath, Chest pain, Uncontrolled pain Home Medications: Medications to take at Discharge Aspirin [Aspirin, Baby] 81 mg PO DAILY@0800 04/11/17 Atorvastatin Calcium [Lipitor] 20 mg PO QHS 04/11/17 Cholecalciferol (Vitamin D3) [Vitamin D3] 1,000 unit PO DAILY 04/11/17 Ferrous Sulfate 325 mg PO BIDCM 04/11/17 Furosemide [Lasix] 20 mg PO DAILY 04/11/17 [place]-3 Fatty Acids/Fish Oil [Fish Oil 1,000 mg Capsule] 1 each PO BID 04/11/17 Potassium Chloride 10 meq PO DAILY 04/11/17 Acetaminophen [Tylenol Tablet] 650 mg PO Q6H PRN PRN tablet 04/19/17 Dextran 70/He-Cell [Tears Naturale, Artificial Tears] 2 drop EACH EYE 4X/DAY 04/19/17 Famotidine [Pepcid] 20 mg PO DAILY #30 tab 04/26/17 Ipratropium/Albuterol Sulfate [Duoneb] 3 ml INHALATION Q6H.RT PRN #60 ampul.neb 04/26/17 Magnesium Oxide [Mag-Ox 400] 400 mg PO DAILYCM #30 tab 04/26/17 Menthol/Lanolin/Calamine/Znox [Calmoseptine Ointment] 1 applic TOPICAL TID tube 04/26/17 Metoprolol Tartrate [Lopressor (beta kuldip)] 25 mg PO BID #60 tab 04/26/17 Prednisone 10 mg PO DAILY #3 tab 04/26/17 Warfarin [Coumadin] 2 mg PO DAILY@1700 #30 tab 04/26/17 Following Prescrptions Were Given to Patient: Ipratropium/Albuterol Sulfate [Duoneb] 3 ml INHALATION Q6H.RT PRN #60 ampul.neb PRN Reason: SOB &/OR WHEEZING Famotidine [Pepcid] 20 mg PO DAILY #30 tab Magnesium Oxide [Mag-Ox 400] 400 mg PO DAILYCM #30 tab Prednisone 10 mg PO DAILY #3 tab Warfarin [Coumadin] 2 mg PO DAILY@1700 #30 tab Metoprolol Tartrate [Lopressor (beta kuldip)] 25 mg PO BID #60 tab Other Amb Orders: Prothrombin Time w/INR Time Frame: 1 Day, Location: Laboratory Primary Care Physician: Nabor Arthur MD [Primary Care Provider] - Please follow up with your Primary Care Physician in: 1 week. Disposition: Home Minutes spent on discharge:: 30 Patient Condition:: Stable Meaningful Use Info Meaningful Use Diagnoses (Choose all that apply): None applicable
--- NOTE | 2017-04-26 16:10 | DCINST_ITS ---
- Discharge Diagnoses Current Active Problems: Current Active and Chronic Problems GERD (gastroesophageal reflux disease) (Chronic) Hypokalemia (Acute) Edema (Acute) Iron deficiency anemia (Chronic) Vitamin D deficiency (Chronic) Vomiting (Acute) Cough (Acute) Influenza A H1N1 infection (Acute) Hospital-acquired pneumonia (Acute) Alzheimer's disease (Chronic) You will use the following diet at home:: No restrictions, Regular Your food should be the consistency of: Regular Your liquids should be the consistency of: Regular/Thin Discharge Activity: Return to Normal Activity, May Shower, Use Walker Weight Bearing Status: Weight bearing as tolerated Call your doctor if you observe: Fever of 101 or Higher, Inability to urinate, Inability to have a bowel movement, Shortness of breath, Chest pain, Uncontrolled pain Allergies/Adverse Reactions: Allergies Penicillins Allergy (Verified 04/14/17 13:56) Rash Medications to take at Discharge Aspirin [Aspirin, Baby] 81 mg PO DAILY@0800 04/11/17 Atorvastatin Calcium [Lipitor] 20 mg PO QHS 04/11/17 Cholecalciferol (Vitamin D3) [Vitamin D3] 1,000 unit PO DAILY 04/11/17 Ferrous Sulfate 325 mg PO BIDCM 04/11/17 Furosemide [Lasix] 20 mg PO DAILY 04/11/17 [place]-3 Fatty Acids/Fish Oil [Fish Oil 1,000 mg Capsule] 1 each PO BID 04/11/17 Potassium Chloride 10 meq PO DAILY 04/11/17 Acetaminophen [Tylenol Tablet] 650 mg PO Q6H PRN PRN tablet 04/19/17 Dextran 70/He-Cell [Tears Naturale, Artificial Tears] 2 drop EACH EYE 4X/DAY 05/05 Famotidine [Pepcid] 20 mg PO DAILY #30 tab 04/26/17 Ipratropium/Albuterol Sulfate [Duoneb] 3 ml INHALATION Q6H.RT PRN #60 ampul.neb 04/26/17 Magnesium Oxide [Mag-Ox 400] 400 mg PO DAILYCM #30 tab 04/26/17 Menthol/Lanolin/Calamine/Znox [Calmoseptine Ointment] 1 applic TOPICAL TID tube 04/26/17 Metoprolol Tartrate [Lopressor (beta kuldip)] 25 mg PO BID #60 tab 04/26/17 Prednisone 10 mg PO DAILY #3 tab 04/26/17 Warfarin [Coumadin] 2 mg PO DAILY@1700 #30 tab 04/26/17 The following prescriptions were given: Ipratropium/Albuterol Sulfate [Duoneb] 3 ml INHALATION Q6H.RT PRN #60 ampul.neb PRN Reason: SOB &/OR WHEEZING Famotidine [Pepcid] 20 mg PO DAILY #30 tab Magnesium Oxide [Mag-Ox 400] 400 mg PO DAILYCM #30 tab Prednisone 10 mg PO DAILY #3 tab Warfarin [Coumadin] 2 mg PO DAILY@1700 #30 tab Metoprolol Tartrate [Lopressor (beta kuldip)] 25 mg PO BID #60 tab Orders to be completed after discharge: Prothrombin Time w/INR Time Frame: 1 Day, Location: Laboratory Primary Care Physician: Nabor Arthur MD [Primary Care Provider] - Please follow up with your Primary Care Physician in: 1 week. Proposed Discharge Date: 04/29/17
[2017-04-26 17:07] VITALS: BP 128/71; PULSE 116
[2017-04-26] MEDS: Atorvastatin Calcium 20 MG Tablet PO (20:43)
[2017-04-26 22:00] VITALS: RESP 15; O2SAT 96
[2017-04-27 05:06] VITALS: BP 132/61; PULSE 62
[2017-04-27] MEDS: Omega-3 Acid Ethyl Esters 1 GM Capsule PO ×2 (05:06→17:25)
[2017-04-27] MEDS: Polyethylene Glycol 3350 17 GM PACKET PO (05:06)
[2017-04-27] MEDS: Metoprolol Tartrate 25 MG Tablet PO ×2 (05:06→17:26)
[2017-04-27] MEDS: Famotidine 20 MG Tablet PO (05:09)
[2017-04-27] MEDS: Furosemide 20 MG Tablet PO (05:09)
[2017-04-27 07:15] VITALS: O2SAT 96
[2017-04-27] MEDS: Magnesium Oxide 400 MG Tablet PO (08:57)
[2017-04-27] MEDS: Aspirin 81 MG TAB.CHEW PO (08:57)
[2017-04-27] MEDS: Ferrous Sulfate 325 MG Tablet PO ×2 (08:57→17:23)
[2017-04-27 10:00] VITALS: PULSE 106; RESP 16; O2SAT 97
[2017-04-27 10:50] VITALS: PULSE 70; RESP 16; O2SAT 97
[2017-04-27] MEDS: Ipratropium/Albuterol Sulfate 3 ML AMPUL.NEB INHALATION (10:50)
[2017-04-27 15:41] VITALS: BP 142/71; PULSE 90; RESP 20; TEMP 36.8; O2SAT 95
[2017-04-27 17:26] VITALS: BP 142/71; PULSE 90
[2017-04-27] MEDS: Atorvastatin Calcium 20 MG Tablet PO (20:53)
[2017-04-28 06:06] LABS: Absolute Lymphocyte Count 2.68 X10^3/ul (0.83-4.51); Absolute Neutrophil Count 8.6 X10^3/uL (2.0-7.7); Basophil# 0.02 X10^3/uL; Basophil% 0.2 % (0-1); Eosinophils% 0.8 % (0-5); Hematocrit 37.6 % (37-47); Hemoglobin 11.3 g/dl (12.0-15.0); Lymphocyte # 2.68 X10^3/ul (4.0); Lymphocyte % 20.9 % (19-41); Mean Corp Hgb Conc 30.1 g/gl (32-36); Mean Corpuscular Hgb 28.2 pg (27.0-32.0); Mean Corpuscular Volume 93.8 fL (81-99); Mean Platelet Vol. 10.1 fl (6.2-12.0); Monocyte# 1.21 X10^3/uL; Monocyte% 9.4 % (0-10); Neutrophil # 8.62 X10^3/uL (2.7-7.7); Platelet Count 412 K/mm3 (150-450); RBC Distribution Width CV 16.7 % (11.6-14.6); RBC Distribution Width SD 54.8 fl (35.1-43.9); Red Blood Count 4.01 M/mm3 (4.2-5.4); White Blood Count 12.9 K/mm3 (4.4-11.0)
[2017-04-28 06:13] LABS: POSITIVE COUNT NO; POSITIVE DIFFERENTIAL NO; POSITIVE MORPHOLOGY NO
[2017-04-28 06:20] VITALS: BP 131/58; PULSE 62
[2017-04-28] MEDS: Metoprolol Tartrate 25 MG Tablet PO ×2 (06:20→16:51)
[2017-04-28] MEDS: Omega-3 Acid Ethyl Esters 1 GM Capsule PO ×2 (06:20→16:51)
[2017-04-28] MEDS: Famotidine 20 MG Tablet PO (06:20)
[2017-04-28] MEDS: Furosemide 20 MG Tablet PO (06:20)
[2017-04-28] MEDS: Polyethylene Glycol 3350 17 GM PACKET PO (06:21)
[2017-04-28 06:37] LABS: Anion Gap 5 (5-15); BUN 32 mg/dL (7-18); BUN/Creat Ratio 42.7 RATIO (10-20); Calcium,Total 9.7 mg/dL (8.5-10.1); Chloride 105 mmol/L (98-107); Creatinine, Serum 0.75 mg/dL (0.55-1.02); EST Glomerular Filtration Rate 79 mL/min (>60); Est Glom Filt Rate - Afr Amer 95 mL/min (>60); Estimated Creatinine Clearance 49.46 ml/min; Glucose 96 mg/dL (74-106); Potassium 4.1 mmol/L (3.5-5.1); Sodium Level 141 mmol/L (136-145)
[2017-04-28] MEDS: Ferrous Sulfate 325 MG Tablet PO ×2 (09:24→18:10)
[2017-04-28] MEDS: Aspirin 81 MG TAB.CHEW PO (09:24)
[2017-04-28] MEDS: Magnesium Oxide 400 MG Tablet PO (09:24)
[2017-04-28 10:00] VITALS: PULSE 94; RESP 18; O2SAT 98
[2017-04-28 15:30] VITALS: BP 125/66; PULSE 92; RESP 18; TEMP 36.3; O2SAT 94
[2017-04-28 16:51] VITALS: PULSE 92
[2017-04-28] MEDS: Atorvastatin Calcium 20 MG Tablet PO (20:14)
[2017-04-29 05:03] VITALS: BP 159/89; PULSE 77
[2017-04-29] MEDS: Omega-3 Acid Ethyl Esters 1 GM Capsule PO (05:03)
[2017-04-29] MEDS: Polyethylene Glycol 3350 17 GM PACKET PO (05:03)
[2017-04-29] MEDS: Furosemide 20 MG Tablet PO (05:03)
[2017-04-29] MEDS: Famotidine 20 MG Tablet PO (05:03)
[2017-04-29] MEDS: Metoprolol Tartrate 25 MG Tablet PO (05:03)
[2017-04-29] MEDS: Menthol/Lanolin/Calamine/Znox 113 GM Tube 1 APPLIC TOPICAL (05:06)
[2017-04-29 06:17] LABS: International Normalized Ratio 2.6; Prothrombin Time (Protime)PT. 26.6 SECONDS (11.7-14.9)
[2017-04-29] MEDS: Ferrous Sulfate 325 MG Tablet PO (07:52)
[2017-04-29] MEDS: Magnesium Oxide 400 MG Tablet PO (07:52)
[2017-04-29] MEDS: Aspirin 81 MG TAB.CHEW PO (07:52)
[2017-04-29 10:31] VITALS: BP 138/68; PULSE 94; RESP 20; TEMP 36.8; O2SAT 94
--- NOTE | 2017-04-29 13:41 | CASEMGMT ---
Insurance Notified [employer] of resident discharge to home with daughter on 04/29/17. Auth#[id number] Monique CARRANZA, FRAME PULLEY MORTISING MACHINE OPERATOR
--- NOTE | 2017-05-02 13:05 | MDS.RN ---
Information for the mds was obtained from review of the clinical record, interview of resident, staff, and direct observation of resident's care.
== END 2017-04-29 12:04 | disposition home or self-care (01) | DRG 193 ==
PROVIDERS: Admitting Provider Family Medicine Geriatric Medicine; Family Provider Family Medicine; PCP Family Medicine; Visit Provider Family Medicine Geriatric Medicine
DX: J10.00 Influenza due to other identified influenza virus with unspecified type of pneumonia (principal); G93.41 Metabolic encephalopathy; I48.2 Chronic atrial fibrillation; J44.0 Chronic obstructive pulmonary disease with (acute) lower respiratory infection; G30.9 Alzheimer's disease, unspecified; F02.80 Dementia in other diseases classified elsewhere, unspecified severity, without behavioral disturbance, psychotic disturbance, mood disturbance, and anxiety; Y95 Nosocomial condition; I25.10 Atherosclerotic heart disease of native coronary artery without angina pectoris; K21.9 Gastro-esophageal reflux disease without esophagitis; D50.9 Iron deficiency anemia, unspecified; E78.5 Hyperlipidemia, unspecified; E87.6 Hypokalemia; I10 Essential (primary) hypertension; Z79.82 Long term (current) use of aspirin; Z79.899 Other long term (current) drug therapy; Z95.1 Presence of aortocoronary bypass graft
CPT/HCPCS: 36415; 71046; 80048; 85025; 85610; 94640; 97110; 97116; 97162; 97166; 97530; 97535; 97802

== ENCOUNTER → 2017-04-30 09:13 | Outpatient (CLI) | payer MEDICARE, SELFPAY ==
[2017-04-30 09:57] LABS: International Normalized Ratio 2.4; Prothrombin Time (Protime)PT. 25.1 SECONDS (11.7-14.9)
== END ==
PROVIDERS: Family Provider Family Medicine; PCP Family Medicine; Visit Provider Family Medicine
DX: I48.2 Chronic atrial fibrillation (principal); Z98.890 Other specified postprocedural states
CPT/HCPCS: 36415; 85610

== ENCOUNTER → 2017-05-01 14:24 | Outpatient (CLI) | payer MEDICARE, SELFPAY ==
[2017-05-01 15:22] LABS: International Normalized Ratio 2.6; Prothrombin Time (Protime)PT. 26.9 SECONDS (11.7-14.9)
== END ==
PROVIDERS: Family Provider Family Medicine; PCP Family Medicine; Visit Provider Family Medicine
DX: I48.2 Chronic atrial fibrillation (principal); Z98.890 Other specified postprocedural states
CPT/HCPCS: 85610

== ENCOUNTER → 2017-05-03 09:00 | Outpatient (CLI) | payer MEDICARE, SELFPAY ==
[2017-05-03 09:26] LABS: International Normalized Ratio 2.4; Prothrombin Time (Protime)PT. 24.9 SECONDS (11.7-14.9)
== END ==
PROVIDERS: Family Provider Family Medicine; PCP Family Medicine; Visit Provider Family Medicine
DX: I48.2 Chronic atrial fibrillation (principal); Z98.890 Other specified postprocedural states
CPT/HCPCS: 36415; 85610

== ENCOUNTER → 2017-05-10 04:34 | Outpatient (CLI) | payer MEDICARE, SELFPAY ==
[2017-05-10 07:20] LABS: International Normalized Ratio 2.5; Prothrombin Time (Protime)PT. 26.1 SECONDS (11.7-14.9)
== END ==
PROVIDERS: Family Provider Family Medicine; PCP Family Medicine; Visit Provider Family Medicine
DX: I48.2 Chronic atrial fibrillation (principal); Z98.890 Other specified postprocedural states
CPT/HCPCS: 36415; 85610

== ENCOUNTER → 2017-05-24 04:45 | Outpatient (CLI) | payer MEDICARE, SELFPAY ==
[2017-05-24 08:18] LABS: International Normalized Ratio 2.2; Prothrombin Time (Protime)PT. 24.6 SECONDS (11.7-14.9)
== END ==
PROVIDERS: Family Provider Family Medicine; PCP Family Medicine; Visit Provider Family Medicine
DX: I48.2 Chronic atrial fibrillation (principal); Z98.890 Other specified postprocedural states
CPT/HCPCS: 36415; 85610

== ENCOUNTER → 2017-06-21 04:50 | Outpatient (CLI) | payer MEDICARE, SELFPAY ==
[2017-06-21 09:19] LABS: International Normalized Ratio 1.9; Prothrombin Time (Protime)PT. 22.2 SECONDS (11.7-14.9)
== END ==
PROVIDERS: Family Provider Family Medicine; PCP Family Medicine; Visit Provider Family Medicine
DX: I48.2 Chronic atrial fibrillation (principal); Z98.890 Other specified postprocedural states
CPT/HCPCS: 36415; 85610

== ENCOUNTER 2017-06-23 10:52 | Observation (INO) | payer MEDICARE, SELFPAY ==
[2017-06-23] VITALS (13 sets, daily range): BP systolic 128–158; BP diastolic 68–83; PULSE 75–91; RESP 14–20; TEMP 36.6–37.4; O2SAT 91–98; BMI 31.3
--- NOTE | 2017-06-23 11:22 | EKG12_ITS ---
Test Reason : SOB Blood Pressure : / mmHG Vent. Rate : 094 BPM Atrial Rate : 084 BPM P-R Int : 000 ms QRS Dur : 132 ms QT Int : 396 ms P-R-T Axes : 000 -45 017 degrees QTc Int : 495 ms Atrial flutter with variable block Right bundle branch block Left anterior fascicular block Bifascicular block Abnormal ECG Confirmed by MEI HAIDER, DILMA ([id number]), social media editor CARLITO HUANG ([id number]) on 06/27/2017 1:58:52 PM Referred By: ADE Confirmed By:DILMA HURLEY MD
--- NOTE | 2017-06-23 11:22 | RAD_ITS ---
STUDY: X-RAY CHEST REASON FOR EXAM: Female, 82 years old. Cough TECHNIQUE: Frontal and lateral views COMPARISON: April 21, 2017 FINDINGS: Stable sternotomy wires. The lungs are clear and expanded. There is no demonstrated pleural abnormality. There is cardiomegaly Normal mediastinum and pancho. Slightly prominent central pulmonary arteries. Normal visualized aortic arch and descending thoracic aorta. Degenerative changes of the thoracic spine. Normal visualized ribs, clavicles, and shoulders. There is no demonstrated abnormality of the visualized soft tissue structures of the upper abdomen. RAD/Chest PA and Lateral IMPRESSION: Cardiomegaly and central pulmonary vascular prominence. Electronically Signed: Zachary Chacon DO at 12:27 EDT Tel [phone], Service support ,
[2017-06-23] MEDS: Ipratropium/Albuterol Sulfate 3 ML AMPUL.NEB INHALATION (11:37)
[2017-06-23 11:40] LABS: Absolute Lymphocyte Count 2.36 X10^3/ul (0.83-4.51); Absolute Neutrophil Count 6.2 X10^3/uL (2.0-7.7); Basophil# 0.02 X10^3/uL; Basophil% 0.2 % (0-1); Hematocrit 42.6 % (37-47); Hemoglobin 13.4 g/dl (12.0-15.0); Lymphocyte # 2.36 X10^3/ul (4.0); Mean Corp Hgb Conc 31.5 g/gl (32-36); Mean Corpuscular Hgb 28.2 pg (27.0-32.0); Mean Corpuscular Volume 89.7 fL (81-99); Mean Platelet Vol. 10.1 fl (6.2-12.0); Monocyte% 10.2 % (0-10); Neutrophil # 6.17 X10^3/uL (2.7-7.7); Neutrophil % 62.6 % (47-70); Platelet Count 297 K/mm3 (150-450); RBC Distribution Width CV 14.9 % (11.6-14.6); Red Blood Count 4.75 M/mm3 (4.2-5.4); White Blood Count 9.9 K/mm3 (4.4-11.0)
[2017-06-23 11:41] LABS: POSITIVE COUNT NO; POSITIVE DIFFERENTIAL NO; POSITIVE MORPHOLOGY NO
[2017-06-23 11:55] LABS: Anion Gap 7 (5-15); BUN 20 mg/dL (7-18); BUN/Creat Ratio 19.2 RATIO (10-20); Calcium,Total 9.4 mg/dL (8.5-10.1); Chloride 105 mmol/L (98-107); Creatinine, Serum 1.04 mg/dL (0.55-1.02); EST Glomerular Filtration Rate 54 mL/min (>60); Est Glom Filt Rate - Afr Amer 65 mL/min (>60); Estimated Creatinine Clearance 45.49 ml/min; Glucose 131 mg/dL (74-106); Potassium 3.6 mmol/L (3.5-5.1); Sodium Level 141 mmol/L (136-145)
[2017-06-23] MEDS: MethylPREDNISolone 125 MG/2 ML Vial IV (11:57)
--- NOTE | 2017-06-23 12:36 | ED.VISSUMM ---
- ER Visit Summary Date of Service: 06/23/17 Chief Complaint: [Cough and shortness of breath] History of Present Illness: The patient is a 82 F [presents to the emergency department with a cough ?7 8 days. Patient was seen by primary care physician 6 days ago and started on doxycycline as well as Tamiflu. Patient has not had a fever. Patient states the cough is been productive at times. Patient denies any chest pain. Patient planes of exertional dyspnea. Patient's daughter states patient's been coughing and wheezing and breathing treatment at home did not seem to help.] Patient is a poor historian. Physical Examination: [HEENT-PERRLA, EOMI. Cranial nerves II through XII grossly intact. TMs clear. Mucous membranes moist. No adenopathy. Cardiovascular-regular rate and rhythm without murmur or ectopy Lungs-good aeration bilaterally. Patient has expiratory wheezes and rhonchi throughout. Mild tachypnea. No accessory muscle use or retractions. Abdomen-normoactive bowel sounds, soft, nontender, no rebound or rigidity, no peritoneal signs. Extremities-intact ?4, normal range of motion, normal pulses, atraumatic] Test Results: [EKG obtained on arrival showed a atrial fibrillation rhythm with occasional PVCs and a right bundle branch block. When compared with prior EKGs it appears the right bundle might be new. CBC with differential showed a white count of 9.9, hemoglobin 13, hematocrit 43, platelets 297. Chemistries unremarkable. Troponin was less than 0.02. Chest x-ray showed cardiomegaly otherwise nothing acute. PT and INR pending. Emergency Department Course and Treatment: [Patient was given a DuoNeb aerosol and given Solu-Medrol 125 mill grams IV] Treatment Plan: [Admit] Disposition: [Admit] Impression: COPD exacerbation [] This note was generated with [employer] dictation software. It may contain incorrect words, spelling, and punctuation that were not noted in review of the chart prior to signing ED Disposition - Plan for ED Patient: Chief Complaint: Cough Referrals: Nabor Arthur MD [Primary Care Provider] -
--- NOTE | 2017-06-23 12:57 | NURSING ---
med surg obs copd exac, influenza koram
--- NOTE | 2017-06-23 13:31 | HP.PCM_ITS ---
Problem List (1) Acute exacerbation of chronic obstructive pulmonary disease (COPD) Status: Acute History of Present Illness Date of Admission: 06/23/17 Chief Complaint: shortness of breath, cough, wheezing The patient is an 82 year old F with a PMH of COPD, HTN , hyperlipidemia and valvular insufficiency s/p valve surgery ?repair. SHe was admitted with a 1 week history of SOB, cough and wheezing. She saw her PCP after symptoms started and she was treated for influenza, though she wasnt tested for flu. She was also given PO doxycycline and oral steroids. Daughter says it is because her symptoms mirrored her complaitns when she had flu last year. Symptoms abated only slightly, and she recurred 1 day ago, with worsening SOB, wheezing and a cough productive of yellowish sputum; symptoms didnt resolve with use of aerosols. She also had a subjective fever at home. She was therefore brought to the ED on , where vitals were T-99.4F, BP-158/83, Pox-98% on oxygen and RR-17, with SD-91. She is being managed for COPD exacerbation. [] Past Medical History Past Medical History (Chronic Problems): Chronic Problems COPD (chronic obstructive pulmonary disease) (Chronic) HTN (hypertension) (Chronic) Atrial fibrillation (Chronic) Dementia (Chronic) GERD (gastroesophageal reflux disease) (Chronic) Iron deficiency anemia (Chronic) Vitamin D deficiency (Chronic) Alzheimer's disease (Chronic) Normochromic normocytic anemia (Chronic) Hyperlipidemia (Chronic) Allergies Penicillins Allergy (Verified 06/23/17 10:55) Rash Home Medications: Ambulatory Orders Medication Instructions Recorded Aspirin [Aspirin, Baby] 81 mg PO DAILY@0800 04/11/17 Atorvastatin Calcium [Lipitor] 20 mg PO QHS 04/11/17 Cholecalciferol (Vitamin D3) 1,000 unit PO DAILY 04/11/17 [Vitamin D3] Ferrous Sulfate 325 mg PO BIDCM 04/11/17 Furosemide [Lasix] 20 mg PO DAILY 04/11/17 [place]-3 Fatty Acids/Fish Oil [Fish 1 each PO BID 04/11/17 Oil 1,000 mg Capsule] Potassium Chloride 10 meq PO DAILY 04/11/17 Acetaminophen [Tylenol Tablet] 650 mg PO Q6H PRN PRN tablet 04/19/17 Dextran 70/He-Cell [Tears 2 drop EACH EYE 4X/DAY 04/19/17 Naturale, Artificial Tears] Famotidine [Pepcid] 20 mg PO DAILY #30 tab 04/26/17 Ipratropium/Albuterol Sulfate 3 ml INHALATION Q6H.RT PRN #60 04/26/17 [Duoneb] ampul.neb Magnesium Oxide [Mag-Ox 400] 400 mg PO DAILYCM #30 tab 04/26/17 Menthol/Lanolin/Calamine/Znox 1 applic TOPICAL TID tube 04/26/17 [Calmoseptine Ointment] Metoprolol Tartrate [Lopressor 25 mg PO BID #60 tab 04/26/17 (beta kuldip)] Warfarin [Coumadin] 2 mg PO DAILY@1700 #30 tab 04/26/17 Surgical History: coronary bypass surgery, - - cardiac valve repair Psychiatric History: No pertinent psych hx AREA CAPTAIN History: No pertinent AREA CAPTAIN history Lives: With Family Smoking Status: Former smoker Alcohol: None - *Family History Maternal History Items: Unknown - pt has dementia Paternal History Items: Unknown - pt has dementia Review of Systems Constitutional: Reports: Fever, Weakness, Fatigue Eyes: Denies: Blurred vision HEENT: Denies: Head Aches, Sinus Congestion, Sinus Drainage Cardiovascular: Denies: Chest Pain, Chest Pressure, Chest Tightness, Palpitations, Paroxysmal Noc. Dyspnea, Syncope Respiratory: Reports: Cough, Shortness of Breath, Shortness of breath at rest, Shortness of breath upon exertion, Sputum production Gastrointestinal: Denies: Abdominal Pain, Constipation, Diarrhea, Nausea, Vomiting Genitourinary: Denies: Dysuria Musculoskeletal: Denies: Joint Pain, Joint Tenderness Skin: Denies: Rash, Wounds Neurological: Denies: Numbness, Tingling, Focal weakness Psychiatric: Denies: Anxiety, Depression, Homicidal Ideations, Suicidal Ideations Hematologic/ Lymphatic: Denies: Adenopathy VTE Information - Inpt Only VTE Present on Admission: No VTE Mechan Device Prophylaxis: SCD's VTE Pharm Prophylaxis ordered?: Yes - Physical Exam General: Alert, Oriented x3, Cooperative, No apparent distress HEENT: Atraumatic, PERRLA, EOMI, Normocephalic Oral: Dry Mucosa Neck: Supple, No JVD, Negative Carotid Bruits Lungs: - - has very diffuse wheezing in all lung navarro; with rhonchi and a few crackles Cardiovascular: Normal S1, Normal S2, No murmurs, - - irregularly irregular heart rate Abdomen: Bowel Sounds Present, Soft, Non Tender, Non-Distended, No Hepato- splenomegaly Extremities: No clubbing, No cyanosis, No edema, Capillary Refill Less than 3 Seconds Skin: No rashes, No breakdown Musculoskeletal: No Tenderness to Palpation of Joints or Extremities Vital Signs Temp Pulse Resp BP Pulse Ox 99.4 F H 75 14 132/78 H 98 06/23/17 10:53 06/23/17 12:47 06/23/17 12:47 06/23/17 12:47 06/23/17 12:47 Assessment/Plan 82 y/o female with a PMH of COPD, HTN, dementia and hyperlipidemia presenting with a one week history of fever, productive cough and SOB. 1. Acute COPD exacerbation, likely induced by a viral illness * patient on 2L of oxygen in ED, saturating >92%. * has diffuse wheezing in all lung navarro, with coarse rhonchi. * had a low grade fever of 99.4F on admission * labs showed no leucocytosis (wbc-9) * BNPep was 419.5 * CXR showed no infiltrate, and there was cardiomegaly with slightly prominent central pulmonary arteries. * will admit to med surg unit with telemetry * will give IV levaquin 500mg daily; EKG showed no QT prolongation,a nd showed Afib with occasional PVCs and new RBBB. * will also diurese with IV lasix in light of BNPep of 419.5; there may be underlying heart failure contributing to these symptoms, as she also has cardiomegaly on CXR * will get 2D echo * will give IV solumedrol 40mg q8 and breathing treatments with albuterol and atrovent. * will hold off on IVF due to likely heart failure. * 2. HTN: on metoprolol 25mg bid; will continue. IV hdralazine prn 3. Afib: on coumadin 2mg daily. Will check INR. Also on metoprolol 25mg bid. 4. CAD: on aspirin and atorvastatin. will continue 5. Valvular insufficiency s/p ?repair/replacement: has a CABG scar. Daughter says she had surgery for leaking valves. Will monitor 6. DVT prophylaxis: on coumadin 7. GI prophylaxis: pantoprazole Code status: full code. Code Visit OBSV E&M: 65739 Initial observation care L2
--- NOTE | 2017-06-23 13:54 | ECHOD_ITS ---
Reason For Study: CHF Procedure This was a 2D Doppler, Color Flow transthoracic echocardiogram. The study was technically difficult. Due to body habitus. Exam performed portable in patient room. Left Ventricle Normal LV size. Moderate concentric left ventricular hypertrophy. Left ventricular systolic function is normal. The estimated ejection fraction is 60 %. Unable to assess diastolic dysfunction. No regional wall motion abnormalities noted. Right Ventricle Normal RV size. Normal systolic function. Atria The left atrium is mildly enlarged. Normal right atrium. Mitral Valve Trivial eccentric mitral valve insufficiency. An annuloplasty ring is noted in the mitral position. S/P MV repair. Tricuspid Valve Normal tricuspid valve. Mild (1+) tricuspid valve insufficiency. Pulmonary artery systolic pressure is 28 mmHg. Aortic Valve Trisinus/trileaflet aortic valve. Pulmonic Valve Normal pulmonic valve. Great Vessels Calcified aortic root. The pulmonary artery is normal size. Normal inferior vena cava. Pericardium/Pleural No pericardial effusion. MMode/2D Measurements & Calculations LVIDd: 4.0 cm IVSd: 1.6 cm Ao root diam: 3.0 cm LVIDs: 3.0 cm LVPWd: 1.4 cm LA dimension: 5.4 cm FS: 25.0 % LAV(MOD-bp): 84.5 ml LA A4 area: 24.2 cm2 LAV(MOD-bp) Indexed: 51.2 ml/m2 LAV(MOD-sp2): 80.3 ml LAV(MOD-sp4): 81.7 ml Doppler Measurements & Calculations MV E max alfredo: 149.5 cm/sec Lat Peak E' Alfredo: 9.7 cm/sec Med Peak E' Alfredo: 3.7 cm/sec E/E' lat: 15.4 E/E' med: 40.0 Ao V2 max: 106.5 cm/sec LV V1 max: 83.3 cm/sec PA V2 max: 91.7 cm/sec Ao max P.5 mmHg LV V1 max P.8 mmHg PI end-d alfredo: 130.0 cm/sec TR max alfredo: 243.8 cm/sec TR max P.8 mmHg Interpretation Summary Normal LV size. Moderate concentric left ventricular hypertrophy. Left ventricular systolic function is normal. The estimated ejection fraction is 60 %. Unable to assess diastolic dysfunction. S/P MV repair Pulmonary artery systolic pressure is 28 mmHg. Ordering Physician: Katy aPul Referring Physician: Nabor Arthur Performed By: Paz Dudley RDCS, RVT
[2017-06-23] MEDS: 0.9% NaCl Peripheral Flush Adult/Peds IV ×3 (16:29→21:11)
[2017-06-23] MEDS: levoFLOXacin IV 500 MG/100 ML BAG 100 MG IV (16:30)
[2017-06-23 16:41] LABS: Bedside Glucose 267 mg/dL (70-110)
[2017-06-23 16:52] LABS: International Normalized Ratio 2.3; Prothrombin Time (Protime)PT. 25.7 SECONDS (11.7-14.9)
[2017-06-23] MEDS: Metoprolol Tartrate 25 MG Tablet 12.5 MG PO ×2 (18:22→21:11)
[2017-06-23] MEDS: Aspirin 81 MG TAB.CHEW PO (18:22)
[2017-06-23] MEDS: Ferrous Sulfate 325 MG Tablet PO (18:23)
[2017-06-23] MEDS: Furosemide 40 MG/4 ML Vial IV (18:57)
[2017-06-23] MEDS: Donepezil HCl 5 MG Tablet PO (21:10)
[2017-06-23] MEDS: Atorvastatin Calcium 20 MG Tablet PO (21:10)
[2017-06-23] MEDS: Famotidine 20 MG Tablet PO (21:11)
[2017-06-23 21:26] LABS: Bedside Glucose 259 mg/dL (70-110)
[2017-06-24] VITALS (17 sets, daily range): BP systolic 100–134; BP diastolic 59–102; PULSE 86–109; RESP 16–20; TEMP 36.4–36.8; O2SAT 93–95
[2017-06-24] MEDS: 0.9% NaCl Peripheral Flush Adult/Peds IV ×5 (02:39→21:03)
[2017-06-24] MEDS: Metoprolol Tartrate 5 MG/5 ML Vial IV (02:39)
[2017-06-24] MEDS: Metoprolol Tartrate 25 MG Tablet 12.5 MG PO ×3 (06:02→21:03)
[2017-06-24 06:28] LABS: Absolute Lymphocyte Count 0.87 X10^3/ul (0.83-4.51); Absolute Neutrophil Count 10.2 X10^3/uL (2.0-7.7); Basophil# 0.01 X10^3/uL; Basophil% 0.1 % (0-1); Hematocrit 41.7 % (37-47); Hemoglobin 13.8 g/dl (12.0-15.0); Lymphocyte # 0.87 X10^3/ul (4.0); Lymphocyte % 7.5 % (19-41); Mean Corp Hgb Conc 33.1 g/gl (32-36); Mean Corpuscular Hgb 29.1 pg (27.0-32.0); Mean Corpuscular Volume 87.8 fL (81-99); Mean Platelet Vol. 10.3 fl (6.2-12.0); Monocyte# 0.37 X10^3/uL; Monocyte% 3.2 % (0-10); Neutrophil # 10.24 X10^3/uL (2.7-7.7); Neutrophil % 88.3 % (47-70); Platelet Count 317 K/mm3 (150-450); RBC Distribution Width CV 14.6 % (11.6-14.6); RBC Distribution Width SD 46.1 fl (35.1-43.9); Red Blood Count 4.75 M/mm3 (4.2-5.4); White Blood Count 11.6 K/mm3 (4.4-11.0)
[2017-06-24 06:41] LABS: Bedside Glucose 166 mg/dL (70-110)
[2017-06-24 06:44] LABS: Anion Gap 9 (5-15); BUN 18 mg/dL (7-18); BUN/Creat Ratio 22.2 RATIO (10-20); Calcium,Total 9.5 mg/dL (8.5-10.1); Chloride 104 mmol/L (98-107); Creatinine, Serum 0.81 mg/dL (0.55-1.02); EST Glomerular Filtration Rate 72 mL/min (>60); Est Glom Filt Rate - Afr Amer 87 mL/min (>60); Glucose 163 mg/dL (74-106); Potassium 3.6 mmol/L (3.5-5.1); Sodium Level 140 mmol/L (136-145)
[2017-06-24 07:01] LABS: POSITIVE COUNT NO; POSITIVE DIFFERENTIAL NO; POSITIVE MORPHOLOGY NO
--- NOTE | 2017-06-24 07:39 | PCM.PN.HOSP ---
Subjective: Patient is an 82-year-old lady who presented with one-week history of progressive shortness of breath associated with intermittent fever as well as cough. On assessment of acute COPD exacerbation was made and admission admitted to regular nursing floor where patient has since been managed 06/24/2017: Patient did receive Lasix during the evening as a result of respiratory distress with significant urine output and improvement in her breathing status Objective: GENERAL: cooperative HEENT: Clear conjunctiva, NECK; supple, normal thyroid, CHEST: Diminished to auscultation bilaterally, HEART: Regular S1 S2, no audible murmurs ABDOMEN: soft, non-tender, normoactive bowel sounds, RECTAL: deferred EXTREMITIES: No edema, no clubbing, no cyanosis. CUSTOM MILLER: Awake, no lateralizing signs. SKIN: No Rash Vitals/I&O's: Vital Signs Temp Pulse Resp BP Pulse Ox 97.8 F 94 18 134/76 H 94 06/24/17 03:21 06/24/17 06:02 06/24/17 03:21 06/24/17 06:02 06/24/17 03:21 Oxygen Flow Rate (L/min) 1 Oxygen Delivery Method Nasal Cannula Weight: 70.3 kg Body Mass Index (BMI) 31.3 Intake and Output for Last 24 Hours 06/22/17 06/23/17 06/24/17 23:59 23:59 23:59 Intake Total 738 / 738 120 / 120 Output Total 250 / 250 Balance 488 / 488 120 / 120 Laboratory Results 06/23/17 15:10: PT Cancelled, INR Cancelled 06/23/17 16:10: PT 25.7 H, INR 2.3 06/23/17 16:36: POC Glucose 267 H 06/23/17 16:40: Troponin I < 0.02 06/23/17 21:09: POC Glucose 259 H 06/24/17 06:06: WBC 11.6 H, RBC 4.75, Hgb 13.8, Hct 41.7, MCV 87.8, MCH 29.1, MCHC 33.1, RDW 14.6, RDW Differential 46.1 H, Plt Count 317, MPV 10.3, Immature Gran % (Auto) 0.900, Neut % (Auto) 88.3 H, Lymph % (Auto) 7.5 L, [place] % (Auto) 3.2, Eos % (Auto) 0.0, Baso % (Auto) 0.1, Absolute Neuts (auto) 10.2 H, Absolute Lymphs (auto) 0.87, Total Counted Not Reportable 06/24/17 06:06: Sodium 140, Potassium 3.6, Chloride 104, Carbon Dioxide 27.0, Anion Gap 9, BUN 18, Creatinine 0.81, Estim Creat Clear Calc 58.40, Est GFR (MDRD) Af Amer 87, Est GFR (MDRD) Non-Af 72, BUN/Creatinine Ratio 22.2 H, Glucose 163 H, Calcium 9.5 06/24/17 06:34: POC Glucose 166 H Current Medications Albuterol Sulfate (Ventolin Aerosols) 2.5 mg INHALATION Q4H.RT PRN PRN Reason: SOB &/OR WHEEZING Artificial Tears (Tears Naturale, Artificial Tears) 2 drop EACH EYE TID [facility], Baby) [facility] Last Admin: 06/23/17 18:22 Dose: 81 mg Atorvastatin Calcium (Lipitor) 20 mg PO QHS [facility] Last Admin: 06/23/17 21:10 Dose: 20 mg Cholecalciferol (Vitamin D) 1,000 unit PO 1400 [facility] Last Admin: 06/23/17 18:22 Dose: 1,000 unit Denosumab (Prolia) 60 mg SQ UD [facility] Dextrose (D50w Syringe) 0 gm IV X1 PRN; Protocol PRN Reason: Hypoglycemia Donepezil HCl (Aricept) 5 mg PO QHS [facility] Last Admin: 06/23/17 21:10 Dose: 5 mg Famotidine (Pepcid) 20 mg PO QHS [facility] Last Admin: 06/23/17 21:11 Dose: 20 mg Ferrous Sulfate ([facility]ous Sulfate) [facility] Last Admin: 06/23/17 18:23 Dose: 325 mg Furosemide (Lasix) 40 mg IV BID@1000,1800 [facility] Last Admin: 06/23/17 18:57 Dose: 40 mg Glucagon () 1 mg IM .X1 PRN PRN Reason: Hypoglycemia Levofloxacin (Levaquin Iv) 250 mg in 50 mls @ 50 mls/hr IV Q24H [facility] Insulin Aspart (Novolog Flexpen (Bkc)) 0 units SC ACHS RYAN PRN Reason: Protocol Last Admin: 06/24/17 06:35 Dose: 1 units Ipratropium [place] (Atrovent) 0.5 mg INHALATION Q4H.RT PRN PRN Reason: SOB &/OR WHEEZING Magnesium Hydroxide (Milk Of Magnesia) 30 ml PO DAILY PRN PRN PRN Reason: Constipation Magnesium Hydroxide (Milk Of Magnesia) 30 ml PO Q6H PRN PRN PRN Reason: Constipation Magnesium Oxide (Mag-Ox 400) [facility] Methylprednisolone (Solu-Medrol) 40 mg IV Q8 [facility] Last Admin: 06/24/17 06:03 Dose: 40 mg Metoprolol Tartrate (Lopressor (Beta Shantal)) 12.5 mg PO TID [facility] Last Admin: 06/24/17 06:02 Dose: 12.5 mg Potassium Chloride (K-Dur) 10 meq PO DAILY [facility] Psyllium Hydrophilic Mucilloid (Metamucil) 1 packet PO DAILY [facility] Sodium Chloride () 5 - 30 ml IV UD PRN PRN Reason: SALINE FLUSH Last Admin: 06/24/17 06:03 Dose: 10 ml Warfarin Sodium (Coumadin (Pbkc)) 2 mg PO DAILY@1700 [facility] Last Admin: 06/23/17 18:23 Dose: 2 mg Medical Necessity - Tobacco Use Smoking Status: Never smoker Assessment/Plan Patient is an 82-year-old lady who presented with one-week history of progressive shortness of breath associated with intermittent fever as well as cough. On assessment of acute COPD exacerbation was made and admission admitted to regular nursing floor where patient has since been managed 1. Acute COPD exacerbation: Admitted to regular nursing floor management bronchodilator treatment, systemic steroids supplemental oxygen as well as antibiotic therapy 2. Suspected acute diastolic congestive heart failure patient is on Lasix echo ordered will follow up on result 3. Hypertension-blood pressure controlled, home medications continued with dose adjustment as needed 4. Paroxysmal A. fib rate controlled on metoprolol and systemic anticoagulation with Coumadin. INR 5. CAD per history currently stable 6. History of valvular heart disease specific currently not available 7. Dyslipidemia-patient is on statin therapy, continued at home dose 8. Dementia on Aricept 9. Vitamin D deficiency 10. DVT prophylaxis on systemic anticoagulation with Coumadin Code Visit OBSV E&M: 01892 Subsequent observation care L3
--- NOTE | 2017-06-24 07:42 | PN_ITS ---
Subjective: Patient is an 82-year-old lady who presented with one-week history of progressive shortness of breath associated with intermittent fever as well as cough. On assessment of acute COPD exacerbation was made and admission admitted to regular nursing floor where patient has since been managed 06/24/2017: Patient did receive Lasix during the evening as a result of respiratory distress with significant urine output and improvement in her breathing status Objective: GENERAL: cooperative HEENT: Clear conjunctiva, NECK; supple, normal thyroid, CHEST: Diminished to auscultation bilaterally, HEART: Regular S1 S2, no audible murmurs ABDOMEN: soft, non-tender, normoactive bowel sounds, RECTAL: deferred EXTREMITIES: No edema, no clubbing, no cyanosis. CYLINDER GRINDER: Awake, no lateralizing signs. SKIN: No Rash Vitals/I&O's: Vital Signs Temp Pulse Resp BP Pulse Ox 97.8 F 94 18 134/76 H 94 06/24/17 03:21 06/24/17 06:02 06/24/17 03:21 06/24/17 06:02 06/24/17 03:21 Oxygen Flow Rate (L/min) 1 Oxygen Delivery Method Nasal Cannula Weight: 70.3 kg Body Mass Index (BMI) 31.3 Intake and Output for Last 24 Hours 06/22/17 06/23/17 06/24/17 23:59 23:59 23:59 Intake Total 738 / 738 120 / 120 Output Total 250 / 250 Balance 488 / 488 120 / 120 Laboratory Results 06/23/17 15:10: PT Cancelled, INR Cancelled 06/23/17 16:10: PT 25.7 H, INR 2.3 06/23/17 16:36: POC Glucose 267 H 06/23/17 16:40: Troponin I < 0.02 06/23/17 21:09: POC Glucose 259 H 06/24/17 06:06: WBC 11.6 H, RBC 4.75, Hgb 13.8, Hct 41.7, MCV 87.8, MCH 29.1, MCHC 33.1, RDW 14.6, RDW Differential 46.1 H, Plt Count 317, MPV 10.3, Immature Gran % (Auto) 0.900, Neut % (Auto) 88.3 H, Lymph % (Auto) 7.5 L, [place] % (Auto) 3.2, Eos % (Auto) 0.0, Baso % (Auto) 0.1, Absolute Neuts (auto) 10.2 H, Absolute Lymphs (auto) 0.87, Total Counted Not Reportable 06/24/17 06:06: Sodium 140, Potassium 3.6, Chloride 104, Carbon Dioxide 27.0, Anion Gap 9, BUN 18, Creatinine 0.81, Estim Creat Clear Calc 58.40, Est GFR ( MDRD) Af Amer 87, Est GFR (MDRD) Non-Af 72, BUN/Creatinine Ratio 22.2 H, Glucose 163 H, Calcium 9.5 06/24/17 06:34: POC Glucose 166 H Current Medications Albuterol Sulfate (Ventolin Aerosols) 2.5 mg INHALATION Q4H.RT PRN PRN Reason: SOB &/OR WHEEZING Artificial Tears (Tears Naturale, Artificial Tears) 2 drop EACH EYE TID [facility] Aspirin ([facility]in, Baby) [facility] Last Admin: 06/23/17 18:22 Dose: 81 mg Atorvastatin Calcium (Lipitor) 20 mg PO QHS [facility] Last Admin: 06/23/17 21:10 Dose: 20 mg Cholecalciferol (Vitamin D) 1,000 unit PO 1400 [facility] Last Admin: 06/23/17 18:22 Dose: 1,000 unit Denosumab (Prolia) 60 mg SQ UD [facility] Dextrose (D50w Syringe) 0 gm IV X1 PRN; Protocol PRN Reason: Hypoglycemia Donepezil HCl (Aricept) 5 mg PO QHS [facility] Last Admin: 06/23/17 21:10 Dose: 5 mg Famotidine (Pepcid) 20 mg PO QHS [facility] Last Admin: 06/23/17 21:11 Dose: 20 mg Ferrous Sulfate (Ferrous Sulfate) [facility] Last Admin: 06/23/17 18:23 Dose: 325 mg Furosemide (Lasix) 40 mg IV BID@1000,1800 [facility] Last Admin: 06/23/17 18:57 Dose: 40 mg Glucagon () 1 mg IM .X1 PRN PRN Reason: Hypoglycemia Levofloxacin (Levaquin Iv) 250 mg in 50 mls @ 50 mls/hr IV Q24H [facility] Insulin Aspart (Novolog Flexpen (Bkc)) 0 units SC ACHS RYAN PRN Reason: Protocol Last Admin: 06/24/17 06:35 Dose: 1 units Ipratropium [place] (Atrovent) 0.5 mg INHALATION Q4H.RT PRN PRN Reason: SOB &/OR WHEEZING Magnesium Hydroxide (Milk Of Magnesia) 30 ml PO DAILY PRN PRN PRN Reason: Constipation Magnesium Hydroxide (Milk Of Magnesia) 30 ml PO Q6H PRN PRN PRN Reason: Constipation Magnesium Oxide (Mag-Ox 400) [facility] Methylprednisolone (Solu-Medrol) 40 mg IV Q8 [facility] Last Admin: 06/24/17 06:03 Dose: 40 mg Metoprolol Tartrate (Lopressor (Beta Shantal)) 12.5 mg PO TID [facility] Last Admin: 06/24/17 06:02 Dose: 12.5 mg Potassium Chloride (K-Dur) 10 meq PO DAILY [facility] Psyllium Hydrophilic Mucilloid (Metamucil) 1 packet PO DAILY [facility] Sodium Chloride () 5 - 30 ml IV UD PRN PRN Reason: SALINE FLUSH Last Admin: 06/24/17 06:03 Dose: 10 ml Warfarin Sodium (Coumadin (Pbkc)) 2 mg PO DAILY@1700 [facility] Last Admin: 06/23/17 18:23 Dose: 2 mg Medical Necessity - Tobacco Use Smoking Status: Never smoker Assessment/Plan Patient is an 82-year-old lady who presented with one-week history of progressive shortness of breath associated with intermittent fever as well as cough. On assessment of acute COPD exacerbation was made and admission admitted to regular nursing floor where patient has since been managed 1. Acute COPD exacerbation: Admitted to regular nursing floor management bronchodilator treatment, systemic steroids supplemental oxygen as well as antibiotic therapy 2. Suspected acute diastolic congestive heart failure patient is on Lasix echo ordered will follow up on result 3. Hypertension-blood pressure controlled, home medications continued with dose adjustment as needed 4. Paroxysmal A. fib rate controlled on metoprolol and systemic anticoagulation with Coumadin. INR 5. CAD per history currently stable 6. History of valvular heart disease specific currently not available 7. Dyslipidemia-patient is on statin therapy, continued at home dose 8. Dementia on Aricept 9. Vitamin D deficiency 10. DVT prophylaxis on systemic anticoagulation with Coumadin Code Visit OBSV E&M: 67327 Subsequent observation care L3
[2017-06-24] MEDS: Furosemide 40 MG/4 ML Vial IV ×2 (08:43→17:39)
[2017-06-24] MEDS: Aspirin 81 MG TAB.CHEW PO (08:43)
[2017-06-24] MEDS: Magnesium Oxide 400 MG Tablet PO (08:43)
[2017-06-24] MEDS: Ferrous Sulfate 325 MG Tablet PO ×2 (08:43→16:27)
[2017-06-24] MEDS: levoFLOXacin 250 MG Tablet PO (11:31)
[2017-06-24 11:41] LABS: Bedside Glucose 239 mg/dL (70-110)
--- NOTE | 2017-06-24 16:21 | CHAPLAIN ---
two attempts made to visit; patient is sleeping both times and did not awaken
[2017-06-24 16:35] LABS: Bedside Glucose 205 mg/dL (70-110)
[2017-06-24] MEDS: Donepezil HCl 5 MG Tablet PO (21:03)
[2017-06-24] MEDS: Famotidine 20 MG Tablet PO (21:03)
[2017-06-24] MEDS: Atorvastatin Calcium 20 MG Tablet PO (21:03)
[2017-06-24 21:16] LABS: Bedside Glucose 206 mg/dL (70-110)
[2017-06-25 02:10] VITALS: BP 127/72; PULSE 92; RESP 16; TEMP 37; O2SAT 95
[2017-06-25 03:44] VITALS: PULSE 89
[2017-06-25 06:27] VITALS: PULSE 92
[2017-06-25] MEDS: 0.9% NaCl Peripheral Flush Adult/Peds IV ×2 (06:27→07:40)
[2017-06-25] MEDS: Metoprolol Tartrate 25 MG Tablet 12.5 MG PO (06:27)
[2017-06-25] MEDS: levoFLOXacin 250 MG Tablet PO (06:27)
[2017-06-25 06:41] LABS: Bedside Glucose 141 mg/dL (70-110)
[2017-06-25 07:12] VITALS: PULSE 99
[2017-06-25 07:26] VITALS: BP 157/78; PULSE 71; RESP 18; TEMP 36.4; O2SAT 92
[2017-06-25] MEDS: Aspirin 81 MG TAB.CHEW PO (07:35)
[2017-06-25] MEDS: Ferrous Sulfate 325 MG Tablet PO (07:35)
[2017-06-25] MEDS: Magnesium Oxide 400 MG Tablet PO (07:35)
[2017-06-25] MEDS: Furosemide 40 MG/4 ML Vial IV (07:40)
[2017-06-25 07:55] VITALS: O2SAT 92
--- NOTE | 2017-06-25 07:59 | PCM.DC ---
You will use the following diet at home:: No restrictions Allergies/Adverse Reactions: Allergies Penicillins Allergy (Verified 06/23/17 10:55) Rash Medications to take at Discharge Aspirin [Aspirin, Baby] 81 mg PO DAILY@1400 04/11/17 Cholecalciferol (Vitamin D3) [Vitamin D3] 1,000 unit PO DAILY@1400 04/11/17 Ferrous Sulfate 325 mg PO BIDCM 04/11/17 Furosemide [Lasix] 20 mg PO DAILY 04/11/17 [place]-3 Fatty Acids/Fish Oil [Fish Oil 1,000 mg Capsule] 1,000 mg PO BID 04/11/17 Potassium Chloride 10 meq PO DAILY 04/11/17 Magnesium Oxide [Mag-Ox 400] 400 mg PO DAILYCM #30 tab 04/26/17 Warfarin [Coumadin] 2 mg PO DAILY@1700 #30 tab 04/26/17 Acetaminophen [Tylenol Tablet] 650 mg PO Q4H PRN PRN 06/23/17 Albuterol IH (ProAir) [Proair Hfa] 2 puff INHALATION Q4H PRN PRN 06/23/17 Amino Acids/Protein Hydrolys [Pro-Stat Max Liquid] 887 ml PO DAILY 06/23/17 Denosumab [Prolia] 60 mg SQ QMONTH 06/23/17 Donepezil HCl [Aricept] 5 mg PO QHS 06/23/17 Ipratropium/Albuterol Sulfate [Duoneb] 3 ml INHALATION Q6H PRN PRN 06/23/17 Magnesium Hydroxide [Milk of Magnesia] 30 ml PO Q6H PRN PRN 06/23/17 Metoprolol Tartrate [Lopressor (beta kuldip)] 12.5 mg PO TID 06/23/17 Oxygen, Home [Home Oxygen] 2 l NASAL QHS 06/23/17 Propylene Glycol/Peg 400/Pf [Systane 0.3-0.4% Eye Drops] 2 drop EACH EYE TID 06/23/17 Psyllium Husk [Metamucil] 0.52 gm PO DAILY 06/23/17 Ranitidine [Zantac] 150 mg PO QHS 06/23/17 Simvastatin [Zocor] 40 mg PO QHS 06/23/17 Guaifenesin [Mucinex] 1,200 mg PO BID #14 tab 06/25/17 Prednisone [Deltasone] 20 mg PO BID #10 tab 06/25/17 levoFLOXacin tablet [Levaquin tablet] 250 mg PO DAILY@0600 #5 tab 06/25/17 The following prescriptions were given: Guaifenesin [Mucinex] 1,200 mg PO BID #14 tab Prednisone [Deltasone] 20 mg PO BID #10 tab levoFLOXacin tablet [Levaquin tablet] 250 mg PO DAILY@0600 #5 tab Primary Care Physician: Nabor Arthur MD [Primary Care Provider] - Please follow up with your Primary Care Physician in: in 5-7 days Proposed Discharge Date: 06/25/17
--- NOTE | 2017-06-25 08:03 | PCM.DC.SUM ---
Discharge Date and Diagnosis Date of Admission: 06/23/17 Date of Discharge: 06/25/17 - Primary Discharge Diagnosis COPD exacerbation Acute on chronic diastolic congestive heart failure - Secondary Discharge Diagnosis Chronic Problems COPD (chronic obstructive pulmonary disease) (Chronic) HTN (hypertension) (Chronic) Atrial fibrillation (Chronic) Dementia (Chronic) GERD (gastroesophageal reflux disease) (Chronic) Iron deficiency anemia (Chronic) Vitamin D deficiency (Chronic) Alzheimer's disease (Chronic) Normochromic normocytic anemia (Chronic) Hyperlipidemia (Chronic) Hospital Course and Treatment Imaging Results: Clinical Impression(s) from Imaging Studies Chest X-Ray 06/23/17 11:22 IMPRESSION: Cardiomegaly and central pulmonary vascular prominence. Electronically Signed: Zachary Chacon DO at 12:27 EDT Tel [phone], Service support , Echo: Normal LV size. Moderate concentric left ventricular hypertrophy. Left ventricular systolic function is normal. The estimated ejection fraction is 60 %. Unable to assess diastolic dysfunction. S/P MV repair Pulmonary artery systolic pressure is 28 mmHg. Operations: None Summary of Care Provided: Patient is an 82-year-old lady who presented with one-week history of progressive shortness of breath associated with intermittent fever as well as cough. On assessment of acute COPD exacerbation was made and admission admitted to regular nursing floor where patient has since been managed 1. Acute COPD exacerbation: Admitted to regular nursing floor management bronchodilator treatment, systemic steroids supplemental oxygen as well as antibiotic therapy and did improve with therapy discharged home on steroid as well as antibiotics and aerosol treatment 2. Acute On chronic diastolic congestive heart failure patient is on Lasix echo ordered echo demonstrated EF of 60% patient did improve with Lasix administered home dose was resumed on discharge 3. Hypertension-blood pressure controlled, home medications continued with dose adjustment as needed 4. Paroxysmal A. fib rate controlled on metoprolol and systemic anticoagulation with Coumadin. INR 5. CAD per history currently stable 6. History of mitral valve repair 7. Dyslipidemia-patient is on statin therapy, continued at home dose 8. Dementia on Aricept 9. Vitamin D deficiency 10. DVT prophylaxis on systemic anticoagulation with Coumadin Discharge Diet: Low fat/ Low Cholesterol, 8 Cup Fluid Restriciton, 2000 mg Sodium Diet Discharge Activity: Return to Normal Activity Home Medications: Medications to take at Discharge Aspirin [Aspirin, Baby] 81 mg PO DAILY@1400 04/11/17 Cholecalciferol (Vitamin D3) [Vitamin D3] 1,000 unit PO DAILY@1400 04/11/17 Ferrous Sulfate 325 mg PO BIDCM 04/11/17 Furosemide [Lasix] 20 mg PO DAILY 04/11/17 [place]-3 Fatty Acids/Fish Oil [Fish Oil 1,000 mg Capsule] 1,000 mg PO BID 04/11/17 Potassium Chloride 10 meq PO DAILY 04/11/17 Magnesium Oxide [Mag-Ox 400] 400 mg PO DAILYCM #30 tab 04/26/17 Warfarin [Coumadin] 2 mg PO DAILY@1700 #30 tab 04/26/17 Acetaminophen [Tylenol Tablet] 650 mg PO Q4H PRN PRN 06/23/17 Albuterol IH (ProAir) [Proair Hfa] 2 puff INHALATION Q4H PRN PRN 06/23/17 Amino Acids/Protein Hydrolys [Pro-Stat Max Liquid] 887 ml PO DAILY 06/23/17 Denosumab [Prolia] 60 mg SQ QMONTH 06/23/17 Donepezil HCl [Aricept] 5 mg PO QHS 06/23/17 Ipratropium/Albuterol Sulfate [Duoneb] 3 ml INHALATION Q6H PRN PRN 06/23/17 Magnesium Hydroxide [Milk of Magnesia] 30 ml PO Q6H PRN PRN 06/23/17 Metoprolol Tartrate [Lopressor (beta kuldip)] 12.5 mg PO TID 06/23/17 Oxygen, Home [Home Oxygen] 2 l NASAL QHS 06/23/17 Propylene Glycol/Peg 400/Pf [Systane 0.3-0.4% Eye Drops] 2 drop EACH EYE TID 06/23/17 Psyllium Husk [Metamucil] 0.52 gm PO DAILY 06/23/17 Ranitidine [Zantac] 150 mg PO QHS 06/23/17 Simvastatin [Zocor] 40 mg PO QHS 06/23/17 Guaifenesin [Mucinex] 1,200 mg PO BID #14 tab 06/25/17 Prednisone [Deltasone] 20 mg PO BID #10 tab 06/25/17 levoFLOXacin tablet [Levaquin tablet] 250 mg PO DAILY@0600 #5 tab 06/25/17 Following Prescrptions Were Given to Patient: Guaifenesin [Mucinex] 1,200 mg PO BID #14 tab Prednisone [Deltasone] 20 mg PO BID #10 tab levoFLOXacin tablet [Levaquin tablet] 250 mg PO DAILY@0600 #5 tab Primary Care Physician: Nabor Arthur MD [Primary Care Provider] - Please follow up with your Primary Care Physician in: in 5-7 days Disposition: Home Minutes spent on discharge:: 35 Patient Condition:: Stable Medical Necessity - Tobacco Use Smoking Status: Never smoker Meaningful Use Info Meaningful Use Diagnoses (Choose all that apply): CHF - CHF SUKI/ARB ordered at discharge?: Yes Reason SUKI/ARB not ordered?: Worsening renal dysfunctn Documented LVEF (%): 60 Code Visit Inpatient E&M: 61089 Disch Hosp
[2017-06-25 08:20] LABS: Bedside Glucose 218 mg/dL (70-110)
[2017-06-25 08:20] LABS: Bedside Glucose 217 mg/dL (70-110)
[2017-06-25 12:05] LABS: Bedside Glucose 173 mg/dL (70-110)
== END 2017-06-25 12:15 | disposition home or self-care (01) ==
LOC: ED 12:56 → MS2 13:12
PROVIDERS: Admitting Provider Student in an Organized Health Care Education/Training Program; Emergency Provider Emergency Medicine; Family Provider Family Medicine; PCP Family Medicine; Visit Provider Internal Medicine
DX: J44.1 Chronic obstructive pulmonary disease with (acute) exacerbation (principal); I11.0 Hypertensive heart disease with heart failure; I50.33 Acute on chronic diastolic (congestive) heart failure; I48.0 Paroxysmal atrial fibrillation; G30.9 Alzheimer's disease, unspecified; F02.80 Dementia in other diseases classified elsewhere, unspecified severity, without behavioral disturbance, psychotic disturbance, mood disturbance, and anxiety; E78.5 Hyperlipidemia, unspecified; E55.9 Vitamin D deficiency, unspecified; K21.9 Gastro-esophageal reflux disease without esophagitis; D50.9 Iron deficiency anemia, unspecified; Z79.899 Other long term (current) drug therapy; Z79.82 Long term (current) use of aspirin; Z99.81 Dependence on supplemental oxygen; Z79.01 Long term (current) use of anticoagulants; I25.10 Atherosclerotic heart disease of native coronary artery without angina pectoris; Z87.891 Personal history of nicotine dependence; Z95.1 Presence of aortocoronary bypass graft
CPT/HCPCS: 36415; 71046; 80048; 82962; 84484; 85025; 85610; 87040; 87633; 93005; 93306; 94640; 96365; 96375; 96376; 99218; 99283; Q9957; A4216; G0378; J1940

== ENCOUNTER → 2017-06-27 04:51 | Outpatient (CLI) | payer MEDICARE, SELFPAY ==
[2017-06-27 08:49] LABS: International Normalized Ratio 2.7
== END ==
PROVIDERS: Family Provider Family Medicine; PCP Family Medicine; Visit Provider Family Medicine
DX: I48.2 Chronic atrial fibrillation (principal); Z98.890 Other specified postprocedural states
CPT/HCPCS: 36415; 85610

== ENCOUNTER → 2017-07-04 04:52 | Outpatient (CLI) | payer MEDICARE, SELFPAY ==
[2017-07-04 08:56] LABS: International Normalized Ratio 2.6; Prothrombin Time (Protime)PT. 27.8 SECONDS (11.7-14.9)
== END ==
PROVIDERS: Family Provider Family Medicine; PCP Family Medicine; Visit Provider Family Medicine
DX: I48.2 Chronic atrial fibrillation (principal); Z98.890 Other specified postprocedural states
CPT/HCPCS: 36415; 85610

== ENCOUNTER → 2017-07-17 04:56 | Outpatient (CLI) | payer MEDICARE, SELFPAY ==
[2017-07-17 08:45] LABS: International Normalized Ratio 2.5
== END ==
PROVIDERS: Family Provider Family Medicine; PCP Family Medicine; Visit Provider Family Medicine
DX: I48.2 Chronic atrial fibrillation (principal); Z98.890 Other specified postprocedural states
CPT/HCPCS: 36415; 85610

== ENCOUNTER 2018-10-20 22:14 | Emergency (ER) | payer MEDICARE, SELFPAY ==
[2018-10-20 22:14] VITALS: BMI 33.1
[2018-10-20 22:16] VITALS: BP 157/96; PULSE 74; RESP 16; TEMP 36; O2SAT 96; BMI 34.2
--- NOTE | 2018-10-20 23:34 | CT_ITS ---
STUDY: CT BRAIN WITHOUT CONTRAST REASON FOR EXAM: Female, 83 years old. Itching of the right ear with bleeding. Patient is on warfarin. History of dementia, CHF, hypertension, and skin cancer. RADIATION DOSAGE (If Supplied By Facility): CTDIvol = ( 44.99 ) mGy, DLP = ( 748.30 ) mGycm TECHNIQUE: Transaxial CT imaging of the brain was performed without administration of intravenous contrast material. Individualized dose optimization techniques were used for this CT. COMPARISON: No relevant priors. FINDINGS: Normal soft tissue structures. There is hyperostosis frontalis internus. There is an old blowout fracture of the left orbital floor, without associated rectus muscle entrapment. There is mild cerebral atrophy with widening of the extra-axial spaces and ventricular dilatation. There are areas of decreased attenuation within the white matter tracts of the supratentorial brain, consistent with microvascular disease changes. 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 Normal brainstem. There is mild cerebellar atrophy. There is atherosclerotic calcification of the vertebral and cavernous carotid arteries. There is no intracranial hemorrhage. There are no findings of an acute ischemic infarction. There is mild mucoperiosteal thickening in the left maxillary and bilateral ethmoid sinuses, consistent with mild chronic sinusitis. There is no evidence for acute sinusitis.. There is no evidence for mastoiditis or otitis media. There is no evidence for mass, fluid collection, or bone destruction region of the external auditory canals. CT/Brain/Head without Contrast IMPRESSION: Chronic involutional changes of the brain. No demonstrated acute intracranial process. Electronically Signed: Jeff Rouse MD at 0:32 EDT , Service support ,
--- NOTE | 2018-10-20 23:35 | ED.DCSUM_ITS ---
History of Present Illness Chief Complaint: Ear Problem Detail of Chief Complaint: Right ear itching and bleeding Informant: Family Limited by: Dementia Onset: Today Current Severity: Mild Maximum Severity: Mild Narrative: Patient was brought in by family. They state that she had been complaining of right ear itching today. They noticed some bleeding from the right ear intermittently. She is currently on Coumadin. Her INR was 2.3 three days ago. Family denies that she sticks anything in her ears. She has not had recent URI symptoms. She has not had recent fall. Past Medical History - Allergies and Home Meds Allergies/Adverse Reactions: Allergies Penicillins Allergy (Verified 10/20/18 22:19) Rash Primary Care Physician: Nabor Arthur MD [Primary Care Provider] - Prior records reviewed: Yes Past Medical History: - - Reviewed Surgical History: coronary bypass surgery, - - cardiac valve repair Lives: With Family Smoking Status: Never smoker - Family History Maternal Family History: Reports: Unknown - pt has dementia Paternal Family History: Reports: Unknown - pt has dementia Review of Systems General: Denies: Chills, Fever Eyes: Denies: Visual changes - bilaterally ENT: Reports: - - Right ear itches Cardiovascular: Denies: Chest pain Respiratory: Denies: Dyspnea Gastrointestinal: Denies: Abdominal pain Musculoskeletal: Denies: Neck pain, Back pain Skin: Reports: Wounds Neurological: Denies: Headache Hematologic: Reports: Easy bleeding Physical Exam Vital Signs/Narrative: Vital Signs Temp Pulse Resp BP Pulse Ox 10/20/18 22:16 96.8 F L 74 16 157/96 H 96 Inital Vital Signs reviewed: Yes General: Well nourished, Well developed Head: Normocephalic, Atraumatic Eyes: Perrl ENT: Moist mucous membranes. Negative for: TM's clear - Hemotympanum noted bilaterally. Slight blood noted in the right external ear canal. Small fluid- filled blister noted to the earlobe on the right. Neck: Negative for: Supple Cardiovascular: Irregular Respiratory: No distress, CTA bilaterally Abdomen: Soft, Nontender Neurological: Alert - Dementia at baseline. Diagnostic/Tx/Re-eval Impressions Brain CT 10/20/18 23:34 IMPRESSION: Chronic involutional changes of the brain. No demonstrated acute intracranial process. Electronically Signed: Jeff Rouse MD at 0:32 EDT , Service support , 10/20/18 23:34 CT Head [Brain/Head without Contrast] [CT] Stat - Medical Decision Making Outer ear canal on the right was cleansed. She has evidence of hemotympanum bilaterally. There is no evidence of trauma. CT scan is otherwise unremarkable. I believe this is likely secondary to her coagulopathy with Coumadin. I will have daughter recheck her INR tonight. They have a machine that they can check it instantly at home so we will not charge her to have it done here. I would like to have her seen by ENT this week. She will be given phone numbers for both groups in town. ED Disposition - Plan for ED Patient: Disposition: Home or Assisted Living Diagnosis: Hematotympanum of both ears Referrals: Nabor Arthur MD [Primary Care Provider] - Additional Instructions: Your CT scan is normal. Please follow-up with ENT this week as discussed. When you call for an appointment, let them know you were seen in the ED and diagnosed with hemotympanum. Check INR today. Try to keep INR between 2-2.5.
[2018-10-21 00:56] VITALS: BP 140/83; PULSE 84; O2SAT 95
== END 2018-10-21 00:57 | disposition home or self-care (01) ==
PROVIDERS: Emergency Provider Emergency Medicine; Family Provider Family Medicine; PCP Family Medicine
DX: H73.893 Other specified disorders of tympanic membrane, bilateral (principal); S00.421A Blister (nonthermal) of right ear, initial encounter; X58.XXXA Exposure to other specified factors, initial encounter; Y93.9 Activity, unspecified; Y92.9 Unspecified place or not applicable; Y99.9 Unspecified external cause status; F03.90 Unspecified dementia, unspecified severity, without behavioral disturbance, psychotic disturbance, mood disturbance, and anxiety; Z79.01 Long term (current) use of anticoagulants; Z79.82 Long term (current) use of aspirin; Z79.899 Other long term (current) drug therapy; Z99.81 Dependence on supplemental oxygen; Z88.0 Allergy status to penicillin; Z95.1 Presence of aortocoronary bypass graft
CPT/HCPCS: 70450; 99282

== ENCOUNTER → 2018-12-17 12:36 | Outpatient (CLI) | payer MEDICARE, SELFPAY ==
--- NOTE | 2018-12-17 12:39 | RAD_ITS ---
STUDY: SWALLOWING STUDY REASON FOR EXAM: Female, 83 years old. Dysphagia. TECHNIQUE: The examination was performed with Speech Pathology in attendance. Under fluoroscopic observation, the patient ingested thin barium, thick barium, barium pudding, and barium coated cracker. FLUOROSCOPY TIME: 1:37 minutes/seconds. 1518 fluoroscopic images were obtained. RADIOLOGIST INVOLVEMENT: Radiologist was present and providing direct supervision. COMPARISON: None. FINDINGS: The following was observed during swallowing of the various mixtures of barium: Thin Barium: Intermittent penetration and evacuation upon ingestion of thin liquids. Barium Pudding: There was no evidence of aspiration or laryngeal penetration. Barium Coated Cracker: There was no evidence of aspiration or laryngeal penetration. RAD/Swallowing Function w/Video IMPRESSION: Intermittent penetration with evacuation upon ingestion of thin liquids. The swallow study findings were discussed with the patient by the speech pathologist at the conclusion of the examination. Please see speech pathology report for more information and recommendations. Electronically Signed: Jesu Mckee, at 14:54 EDT , Service support ,
--- NOTE | 2018-12-17 13:00 | SP.MBSS_ITS ---
PRIMARY / SECONDARY DIAGNOSIS: dysphagia (R13.10) REFERRING PHYSICIAN: Dr. Nabor Arthur MD CURRENT DIET: mechanical soft textures, thin liquids DENTITION: upper dentures, edentulous lower status. MENTAL STATUS: impaired; dementia RESPIRATORY STATUS: O2 via room air REASON FOR REFERRAL: The Patient is an 83 year old female referred for a modified barium swallow (MBS) study to objectively assess the Patients oropharyngeal swallow function under fluoroscopy secondary to reported intermittent coughing during ingestion (particularly with thin liquids), in addition to inconsistent swallow onset timing and increased meal durations reported by the Patients family members. MEDICAL HISTORY: Chronic obstructive pulmonary disease, dementia / Alzheimer's disease, prior right basal ganglia infarction, atrial fibrillation, hypertension, hyperlipidemia, gastroesophageal reflux disease, iron deficiency anemia, normochromic normocytic anemia, Vitamin D deficiency. PREVIOUS MODIFIED BARIUM SWALLOW STUDY: None. ADDITIONAL OBJECTIVE ASSESSMENT RESULTS: 10/20/2018 CT revealed chronic involutional changes of the brain; old infarction of the right basal ganglia; no demonstrated acute intracranial process. ASSESSMENT PARAMETERS: The Patient participated in a Modified Barium Swallow (MBS) study on 12/17/2018. Dr. Mckee was the radiologist present for this evaluation. This study was recorded in the lateral view and images were sent to PACs for storage. Scoring was completed through each trial using the 8-point Penetration-Aspiration Scale (PAS), and summarized via the Modified Barium Swallow Impairment Profile (MBSImP) and the Bolus Residue Scale (BRS), with severity scoring through the Dysphagia Severity Rating Scale (DSRS) and the Swallowing Performance Scale (PSP), and recommended diet textures through the International Dysphagia Diet Standardisation Initiative (IDDSI). RESULTS OF THE EVALUATION: The Patient presents with mild to moderate oral phase dysphagia (DSRS: 3; SPS: 4) with intermittent deep transient penetration of thin liquids via straw likely secondary to a combination of dementia, prior cerebrovascular accidents, and secondary presbyphagia. OBJECTIVE ASSESSMENT OF SWALLOW FUNCTION (QUANTITATIVE ? PER TRIAL): PENETRATION / ASPIRATION SCALE (BAINS): 1 = does not enter airway 2 = enters airway/above vocal folds/ejected 3 = enters airway/above vocal folds/not ejected 4 = enters airway/contacts vocal folds/ejected 5 = enters airway/contacts vocal folds/not ejected 6 = enters airway/below vocal folds/ejected 7 = enters airway/below vocal folds/not ejected despite effort 8 = enters airway/below vocal folds/no effort PENETRATION / ASPIRATION SCALE (SCORE): Thin liquid - 5 mL tsp.: 1 Thin liquids via cup (single sip): 1 Thin liquids via cup (single sip): 1 Thin liquids via cup (single sip): 1 Thin liquids via straw (single sip): 1 Thin liquids via straw (sequential swallows): 1 Pudding via spoon: 1 Regular textured cookie: 1 Thin liquids via straw (single sip): 1 Thin liquids via straw (single sip): 4 OBJECTIVE ASSESSMENT OF SWALLOW FUNCTION (QUANTITATIVE ? AGGREGATE): MODIFIED BARIUM SWALLOW IMPAIRMENT PROFILE (MBSImP) LABIAL SEAL: 0 (of 4) no labial escape TONGUE CONTROL: 2 (of 3) posterior escape < 50% BOLUS PREPARATION / MASTICATION: unable to complete BOLUS TRANSPORT / LINGUAL MOTION: 1 (of 4) delayed initiation of motion ORAL RESIDUE: 1 (of 4) trace residue lining oral structures INITIATION OF PHARYNGEAL SWALLOW: 2 (of 4) posterior surface of epiglottis SOFT PALATE ELEVATION: 0 (of 4) no bolus between soft palate & pharyngeal wall LARYNGEAL ELEVATION: 0 (of 3) complete superior movement / approximation ANTERIOR HYOID EXCURSION: 1 (of 2) partial movement EPIGLOTTIC MOVEMENT: 0 (of 2) complete inversion LARYNGEAL VESTIBULE CLOSURE: 0 (of 2) complete closure PHARYNGEAL STRIPPING WAVE: 1 (of 2) present / diminished PE SEGMENT OPENIN (of 3) partial distension / duration / obstruction TONGUE BASE RETRACTION: 2 (of 4) narrow column of contrast PHARYNGEAL RESIDUE: 2 (of 4) collection of residue ESOPHAGEAL BOLUS CLEARANCE: could not view BOLUS RESIDUE SCALE (BRS): 2 (of 6) residue in valleculae DYSPHAGIA SEVERITY RATING SCALE (DSRS): 3 (mild-moderate) SWALLOWING PERFORMANCE SCALE (SPS): 4 (mild to moderate) OBJECTIVE ASSESSMENT OF SWALLOW FUNCTION (QUALITATIVE): ORAL PREPARATORY PHASE: mastication inefficiency with prolonged mastication and lack of rotary mastication, with the Patient needing to spit bolus out (family reporting this is baseline) complicated by edentulous lower status; sufficient anterior oral containment during presentation / manipulation; preserved management of breathing / bolus formation. ORAL TRANSITIONAL PHASE: slowed bolus manipulation / transportation with brief oral phase swallow onset delay (mild at best); no bolus consolidation impairments; intermittent premature posterior bolus loss directly contributing to brief penetration event. PHARYNGEAL PHASE: no clinically significant signs of pharyngeal dyssynchrony when considering the Patients advanced age; appropriate hyolaryngeal excursion and laryngeal vestibule closure with sufficient laryngeal vestibule pressure generated to expel penetrated material; no clinically significant findings of pharyngeal dysmotility; no signs of velopharyngeal impairments; ESOPHAGEAL PHASE: no obvious esophageal phase abnormalities observed. 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 RESPONSE TO STRATEGIES: all deficits managed successfully with reduction in bolus rate / volume adjustments, and diet texture adjustments. DYSPHAGIA ASSOCIATED MEDICAL CONSIDERATIONS / INTERVENTION CONSIDERATIONS: No aspiration appreciated throughout trials, unable to definitively rule out silent aspiration. Would consider the Patient to be at a higher risk of aspiration related medical complications / aspiration pneumonia / aspiration related pulmonary syndrome secondary to the diagnosis of dementia with a prior cerebrovascular accident, diagnosis of chronic obstructive pulmonary disease, her impaired cognition, presence of dysphagia, suboptimal dentition, dependent for oral care and lower edentulous status, her advanced age, lower functional status, impaired ambulatory status, and her higher prevalence of comorbidities. Would consider this Patient to be a high risk for malnutrition and dehydration due to her reduced rate of intake, presence of cognitive impairments, presence of neurogenic comorbidities, and her advanced age. The Patient may require intervention to reduce the risk of malnutrition, with considerations for food enrichment and oral nutritional supplementation. INTERVENTION RECOMMENDATIONS AND CONSIDERATIONS: Would consider additional skilled speech-language intervention targeting diet texture management; caregiver education regarding safe PO intake strategies; Patient / caregiver education regarding dysphagia associated with progressive neurological conditions; and caregiver training targeting meal preparation. POST ASSESSMENT EDUCATION: Results and recommendations were discussed with the Patient and Patients family immediately following MBS completion, with the Patient and Patients family verbalizing understanding and agreement with all recommendations and education provided. We discussed factors impacting effects of aspiration, to include: the quantity of aspiration, the depth of aspiration (trachea or distal airways), and the physical properties of the aspirate. We discussed consequences of oropharyngeal dysphagia, to include pulmonary complications from tracheobronchial aspiration; potential for airway obstruction / asphyxiation; inadequate oral intake because of dysphagia; reduced liquid intake resulting in dehydration; reduced caloric intake resulting in unintentional and potentially medically complicating loss of weight. We discussed complicating factors with nutritional management and dysphagia, to include complications associated with cognitive decline and the end-of-life pathway. I provided brief overview of signs and symptoms of aspiration, with recommendations for the Patient to further discuss symptoms with the Patients primary care provider. DIET TEXTURE RECOMMENDATIONS: Will recommend a mechanical soft textured (IDDSI: 5), thin liquid diet (IDDSI: 0) diet RECOMMENDED COMPENSATORY STRATEGIES: Supervision by family with assistance as needed, reduced bolus volume / rate of ingestion, liquid chaser at reasonable intervals, seated upright at 90 degrees during PO intake, consider forward / anterior lean, remain upright for 30-60 minutes post meal (GERD precaution), medications one at a time with bola. IMAGE COUNT: [id number] Nehemiah Aguila M.A., CCC-PHOTO LAB MANAGER, CBIS MBSImP Certified, LSVT Certified [facility] Speech-Language Pathology Department [email or web address]
== END ==
PROVIDERS: Family Provider Family Medicine; PCP Family Medicine; Referring Provider Family Medicine; Visit Provider Family Medicine
DX: R13.10 Dysphagia, unspecified (principal)
CPT/HCPCS: 74230; 92611